=== PATIENT | male | born 1945 | race African-American/Black ===

== ENCOUNTER 2016-11-28 11:20 | Inpatient (IN) | payer OTHER ==
[2016-11-28] MEDS ORDERED: SODIUM CHLORIDE 1,000 ML IV ONE (12:52)
--- NOTE | 2016-11-28 12:52 | PDOC ---
History of Present Illness - General History Source: Patient, Family Exam Limitations: No Limitations - History of Present Illness Initial Comments: 11/28/16 16:02 The patient is a 71 year old female with a significant PMH of diabetes, hyperlipidemia, HTN, and prostate cancer who presents to the emergency department with difficulty eating after being sent over by Dr. Perez today. The patients family reports that the patient has had difficulty ingesting his food for over a month. The patient notes that when he eats, it feels as though the food gets stuck in the epigastric area. He acknowledges spitting up a white substance occasionally, but denies vomiting actual food. The family also notes that the patient has lost significant weight recently, possibly over 60 pounds within the last six months. The patients family reports that the patients PCP referred the patient to Dr. Perez, who first prescribed Fluconazole to cover for a fungal issue to no relief. On the second visit this morning, Dr. Perez conducted an endoscopy but could not advance the endoscope past an obstruction in the epigastric area. He referred the patient to the ED for further evaluation. Pt states he is able to tolerate fluids, but not solids. The patient denies chest pain, shortness of breath, headache and dizziness. Denies fever, chills, diarrhea and constipation. Denies dysuria, frequency, urgency and hematuria. Allergies: NKA Social history: No reported toxic habits. PCP: Dr. Deras GI: Dr. Perez Urologist: Dr. Isai Howard <Antwan Garvey - Last Filed: 11/28/16 16:01> <Gamaliel Toribio - Last Filed: 11/28/16 17:30> - General Chief Complaint: Pain Stated Complaint: PCP SENT FOR ADMIN/GI BLOCKAGE Time Seen by Provider: 11/28/16 12:48 Past History <Antwan Garvey - Last Filed: 11/28/16 16:01> - Past Medical History Diabetes: Yes HTN: Yes Hypercholesterolemia: Yes - Surgical History Abdominal Surgery: (endoscopy) - Suicide/Smoking/Psychosocial Hx Smoking History: Never smoked Information on smoking cessation initiated: No Hx Alcohol Use: No Drug/Substance Use Hx: No Substance Use Type: None <Gamaliel Toribio - Last Filed: 11/28/16 17:30> - Past Medical History Allergies/Adverse Reactions: Allergies Allergy/AdvReac Type Severity Reaction Status Date / Time No Known Allergies Allergy Verified 11/28/16 11:31 Review of Systems - Review of Systems Able to Perform ROS?: Yes Comments:: 11/28/16 16:02 Constitutional - Pt denies Fever, Chills, weakness, HEENT: denies vision changes, sore throat Respiratory: Denies cough, sob, hemoptysis Cardiac: denies chest pain, palpitations, light headedness, leg swelling Abd/GI: (+) spitting up. (+) Difficulty swallowing. Denies abd pain, blood per rectum, melena, diarrhea : denies dysuria, frequency, discharge Musculoskeletal - denies back pain, joint swelling skin - denies bruising, erythema, rash neurological: denies headache, numbness, focal weakness, tingling, ataxia, weakness hematologic: denies anemia, easy bruising, easy bleeding <Antwan Garvey - Last Filed: 11/28/16 16:01> *Physical Exam - Vital Signs Last Vital Signs Temp Pulse Resp BP Pulse Ox 97.5 F L 104 H 18 135/80 97 11/28/16 11:28 11/28/16 11:28 11/28/16 11:28 11/28/16 11:28 11/28/16 11:28 - Physical Exam Comments: 11/28/16 16:02 GENERAL: The patient is awake, alert, and fully oriented, Nontoxic - in no acute distress. cachectic appearing HEAD: Normocephalic, atraumatic. EYES: extraocular movements intact, sclera anicteric, conjunctiva clear. ENT: Normal voice, dry mucous membranes. NECK: Normal range of motion, supple LUNGS: Breath sounds equal, clear to auscultation bilaterally. No wheezes, no rhonchi, no rales. HEART: slightly tachcyardic, without murmur, rub or gallop. ABDOMEN: Soft, nontender, normoactive bowel sounds. No guarding, no rebound.No CVA tenderness EXTREMITIES: Normal range of motion, no edema. NEUROLOGICAL: No facial assymetry, Normal speech, moving all 4 extremities apontneously and symemtrically PSYCH: Normal mood, normal affect. SKIN: Warm, Dry, normal turgor, <Antwan Garvey - Last Filed: 11/28/16 16:01> - Vital Signs Last Vital Signs Temp Pulse Resp BP Pulse Ox 97.5 F L 104 H 18 135/80 97 11/28/16 11:28 11/28/16 11:28 11/28/16 11:28 11/28/16 11:28 11/28/16 11:28 <MaluGamaliel - Last Filed: 11/28/16 17:30> Heart Score/ECG Review - ECG Impressions Comment:: 11/28/16 16:18 Twelve-lead EKG was performed and reviewed by me. There is normal sinus rhythm with a normal rate. Rate of 92. LAFB abnormal r wave progression <MaluGamaliel - Last Filed: 11/28/16 17:30> ED Treatment Course - LABORATORY CBC & Chemistry Diagram: 11/28/16 12:59 11/28/16 12:59 - ADDITIONAL ORDERS Additional order review: Laboratory Results 11/28/16 11/28/16 11/28/16 12:59 12:59 12:59 PT with INR 11.20 INR 0.99 Sodium 140 Potassium 4.3 Chloride 102 Carbon Dioxide 33 H Anion Gap 5 L BUN 34 H Creatinine 1.2 Creat Clearance w eGFR 59.51 Random Glucose 90 Calcium 10.1 Total Bilirubin 0.7 AST 19 ALT 24 Alkaline Phosphatase 123 H Total Protein 8.3 H Albumin 3.7 Lipase 171 Blood Type O POSITIVE Antibody Screen Negative 11/28/16 12:59 RBC 3.74 L MCV 86.9 MCHC 34.3 RDW 16.0 H MPV 8.5 Neutrophils % 84.4 H Lymphocytes % 7.3 L Monocytes % 5.9 Eosinophils % 1.9 Basophils % 0.5 - Medications Given in the ED: ED Medications Discontinued Medications Generic Name Dose Route Start Last Admin Trade Name Freq PRN Reason Stop Dose Admin Sodium Chloride 1,000 mls @ 1,000 mls/hr 11/28/16 12:52 11/28/16 13:23 Normal Saline - IV 11/28/16 13:51 1,000 mls/hr .Q1H ONE Administration <Antwan Garvey - Last Filed: 11/28/16 16:01> - LABORATORY CBC & Chemistry Diagram: 11/28/16 12:59 11/28/16 12:59 <Gamaliel Toribio - Last Filed: 11/28/16 17:30> Medical Decision Making - Medical Decision Making 11/28/16 13:10 71y M hx of htn, hl, dm, sent by Dr Perez to the ED - the pt was being evaluated via endoscopy, and he saw a large food bolus and was uanble to pass through and see distally. On exam the pt is in no distress, but is chachectic appearing, and slightly tachy, pssible from dehdyration achalasia vs mass vs malignancy will ck labs will keep bed at 45 egrees will give fluisd anditicpate admission for further management due to concern for aspiration risk A portion of this note was documented by scribe services under my direction. I have reviewed the details of the note, within reason, and agree with the documentation with the following case summary and management plan written by me 11/28/16 16:11 labs reviewed noted for dehydation with elevated BUN will hydrate with fluids ashish admit pt for GI fu pt is NPO will notify dr. raman for admission 11/28/16 17:[address] raman agree with admission for further management stable for med surg Case discussed in detail with admitting physician including history, physical exam and ancillary studies. Admitting physician has assumed care for the patient, will follow all pending diagnostics and will complete the evaluation and treatment. 11/28/16 17:[address] perez [address] chest with IV contrast will reescope on after hopefully some food passess <Gamaliel Toribio - Last Filed: 11/28/16 17:30> *DC/Admit/Observation/Transfer - Attestations Scribe Attestion: 11/28/16 16:03 Documentation prepared by Antwan Garvey, acting as emergency medical services coordinator for Gamaliel Toribio MD. <Antwan Garvey - Last Filed: 11/28/16 16:01> - Discharge Dispostion Admit: Yes <Gamaliel Toribio - Last Filed: 11/28/16 17:30> Diagnosis at time of Disposition: Dehydration Dysphagia Qualifiers: Dysphagia type: unspecified Qualified Code(s): R13.10 - Dysphagia, unspecified - Discharge Dispostion Condition at time of disposition: Stable - Referrals Referrals: STAFF,NOT ON [Primary Care Provider] -
[2016-11-28 14:27] LABS: INR 0.99 (0.82-1.09); PROTHROMBIN TIME (PATIENT) 11.2 SEC (9.98-11.88)
[2016-11-28 15:08] LABS: BASOPHIL 0.5 % (0-2.0); EOSINOPHIL 1.9 % (0-4.5); MCH 29.8 pg (25.7-33.7); MCHC 34.3 g/dl (32.0-35.9); MEAN CELL VOLUME 86.9 fl (80-96); MEAN PLT VOLUME 8.5 fl (7.5-11.1); NEUTROPHILS 84.4 % (42.8-82.8); PLATELET COUNT 156 K/MM3 (134-434); WHITE BLOOD COUNT 6.1 K/mm3 (4.0-10.0)
[2016-11-28 15:32] LABS: ALBUMIN 3.7 g/dl (3.4-5.0); ALK PHOS 123 U/L (45-117); ANION GAP 5 (8-16); BILIRUBIN,TOTAL 0.7 mg/dL (0.2-1.0); CALCIUM 10.1 mg/dL (8.5-10.1); CO2 33 mmol/L (21-32); CREATININE 1.2 mg/dL (0.7-1.3); GLUCOSE,RANDOM 90 mg/dL (74-106); SGOT/AST 19 U/L (15-37); SGPT/ALT 24 U/L (12-78); TOT PROT 8.3 g/dl (6.4-8.2)
[2016-11-28] MEDS ORDERED: SODIUM CHLORIDE 1,000 ML IV SCH (17:30)
--- NOTE | 2016-11-28 18:41 | EKG ---
Test Reason : Blood Pressure : / mmHG Vent. Rate : 092 BPM Atrial Rate : 092 BPM P-R Int : 134 ms QRS Dur : 078 ms QT Int : 350 ms P-R-T Axes : 072 -76 076 degrees QTc Int : 432 ms SINUS RHYTHM WITH OCCASIONAL PREMATURE VENTRICULAR COMPLEXES LEFT ANTERIOR FASCICULAR BLOCK LEFT ATRIAL ENLARGEMENT CANNOT RULE OUT ANTEROSEPTAL INFARCT , AGE UNDETERMINED ABNORMAL ECG NO PREVIOUS ECGS AVAILABLE REPEAT EKG IF CLINICALLY INDICATED Confirmed by SHAMAR ROUSSEAU MD ([id number]) on 11/28/2016 6:41:34 PM Referred By: Confirmed By:SHAMAR ROUSSEAU MD
[2016-11-28] MEDS: D5-1/2NS+20 MEQ KCL - 1,000 ML IV SCH (21:15)
[2016-11-28] MEDS: HEPARIN NA (PORCINE) 5,000 UNITS/ML 1ML VIAL SQ SCH (22:18)
[2016-11-28] MEDS: PANTOPRAZOLE SODIUM 40 MG VIAL IVPUSH SCH (22:18)
[2016-11-29 03:39] VITALS: BMI 17.8
[2016-11-29 08:14] LABS: BASOPHIL 0.5 % (0-2.0); EOSINOPHIL 4.3 % (0-4.5); MCH 29.5 pg (25.7-33.7); MCHC 33.8 g/dl (32.0-35.9); MEAN CELL VOLUME 87.3 fl (80-96); MEAN PLT VOLUME 8.2 fl (7.5-11.1); NEUTROPHILS 73.7 % (42.8-82.8); PLATELET COUNT 152 K/MM3 (134-434); RDW 15.9 % (11.9-15.9); WHITE BLOOD COUNT 3.8 K/mm3 (4.0-10.0)
[2016-11-29 08:36] LABS: ALBUMIN 3.1 g/dl (3.4-5.0); ALK PHOS 94 U/L (45-117); ANION GAP 5 (8-16); BILIRUBIN,TOTAL 0.9 mg/dL (0.2-1.0); CO2 30 mmol/L (21-32); CREATININE 1.1 mg/dL (0.7-1.3); GLUCOSE,RANDOM 109 mg/dL (74-106); SGOT/AST 18 U/L (15-37); SGPT/ALT 21 U/L (12-78); TOT PROT 7.1 g/dl (6.4-8.2)
[2016-11-29] MEDS: HEPARIN NA (PORCINE) 5,000 UNITS/ML 1ML VIAL SQ SCH ×2 (11:44→22:15)
[2016-11-29] MEDS: PANTOPRAZOLE SODIUM 40 MG VIAL IVPUSH SCH ×2 (11:44→22:15)
[2016-11-29] MEDS: D5-1/2NS+20 MEQ KCL - 1,000 ML IV SCH ×2 (11:46→22:14)
--- NOTE | 2016-11-29 11:56 | EKG ---
Test Reason : Blood Pressure : / mmHG Vent. Rate : 075 BPM Atrial Rate : 075 BPM P-R Int : 132 ms QRS Dur : 086 ms QT Int : 376 ms P-R-T Axes : 073 -64 046 degrees QTc Int : 419 ms NORMAL SINUS RHYTHM LEFT ANTERIOR FASCICULAR BLOCK CANNOT RULE OUT ANTEROSEPTAL INFARCT (CITED ON OR BEFORE 28-NOV-2016) ABNORMAL ECG WHEN COMPARED WITH ECG OF 28-NOV-2016 13:33, PREMATURE VENTRICULAR COMPLEXES ARE NO LONGER PRESENT QUESTIONABLE CHANGE IN INITIAL FORCES OF SEPTAL LEADS Confirmed by JOVITA PUGH, BERE ([id number]) on 11/29/2016 11:56:01 AM Referred By: THANG MCCLURE Confirmed By:BERE HUSSEIN MD
--- NOTE | 2016-11-29 15:10 | HP ---
Admitting History and Physical - Primary Care Physician PCP: Mary Hart - Admission Chief Complaint: Dysphagia History of Present Illness: The patient is a 71 year old female with a significant PMH of diabetes, hyperlipidemia, HTN, and prostate cancer who presents to the emergency department with difficulty eating after being sent over by Dr. Perez today. The patients family reports that the patient has had difficulty ingesting his food for over a month. The patient notes that when he eats, it feels as though the food gets stuck in the epigastric area. He acknowledges spitting up a white substance occasionally, but denies vomiting actual food. The family also notes that the patient has lost significant weight recently, possibly over 60 pounds within the last six months. The patients family reports that the patients PCP referred the patient to Dr. Perez, who first prescribed Fluconazole to cover for a fungal issue to no relief. On the second visit this morning, Dr. Perez conducted an endoscopy but could not advance the endoscope past an obstruction in the epigastric area. He referred the patient to the ED for further evaluation. Pt states he is able to tolerate fluids, but not solids. The patient denies chest pain, shortness of breath, headache and dizziness. Denies fever, chills, diarrhea and constipation. Denies dysuria, frequency, urgency and hematuria. History Source: Patient, Family Member Limitations to Obtaining History: No Limitations - Past Medical History Cardiovascular: Yes: HTN, Hyperlipdemia Endocrine: Yes: Diabetes Mellitus - Smoking History Smoking history: Never smoked - Alcohol/Substance Use Hx Alcohol Use: No Home Medications - Allergies Allergies/Adverse Reactions: Allergies Allergy/AdvReac Type Severity Reaction Status Date / Time No Known Allergies Allergy Verified 11/28/16 11:31 - Home Medications Home Medications: Ambulatory Orders Amlodipine Besylate 10 mg PO DAILY 11/28/16 Aspirin [ASA -] 81 mg PO DAILY 11/28/16 Atorvastatin Ca [Lipitor] 40 mg PO HS 11/28/16 Enalapril Maleate [Vasotec] 20 mg PO DAILY 11/28/16 Metformin HCl 500 mg PO DAILY 11/28/16 Review of Systems - Review of Systems Constitutional: reports: Loss of Appetite, Unintentional Wgt. Loss (60 lbs in past 6 months), Weakness Eyes: reports: No Symptoms HENT: reports: No Symptoms Neck: reports: No Symptoms Cardiovascular: reports: No Symptoms Respiratory: reports: No Symptoms Gastrointestinal: reports: Dysphagia Genitourinary: reports: No Symptoms Breasts: reports: No Symptoms Reported Musculoskeletal: reports: No Symptoms Integumentary: reports: No Symptoms Neurological: reports: No Symptoms Endocrine: reports: No Symptoms Hematology/Lymphatic: reports: No Symptoms Psychiatric: reports: No Symptoms Physical Examination Vital Signs: Vital Signs Temperature 98.3 F 11/29/16 06:43 Pulse Rate 75 11/29/16 06:43 Respiratory Rate 20 11/29/16 09:00 Blood Pressure 105/58 11/29/16 06:43 O2 Sat by Pulse Oximetry (%) 98 11/29/16 09:00 Constitutional: Yes: Well Nourished, No Distress, Calm Cardiovascular: Yes: Regular Rate and Rhythm Respiratory: Yes: Regular Musculoskeletal: Yes: WNL Extremities: Yes: WNL Edema: No Peripheral Pulses WNL: Yes Labs: CBC, BMP 11/29/16 07:45 11/29/16 07:45 Problem List - Problems (1) Dysphagia Assessment/Plan: -to be seen by GI -repeat EGD in AM -IVF -ice chips okay until midnight -CT reviewed stricture versus achalasia Code(s): R13.10 - DYSPHAGIA, UNSPECIFIED Qualifiers: Dysphagia type: unspecified Qualified Code(s): R13.10 - Dysphagia, unspecified; R13.10 - Dysphagia, unspecified (2) Unintentional weight loss Assessment/Plan: 2/2 inability to swallow Code(s): R63.4 - ABNORMAL WEIGHT LOSS (3) Anemia Assessment/Plan: -check stool occult -iron studies -b12 and folate Code(s): D64.9 - ANEMIA, UNSPECIFIED Assessment/Plan see problem list
--- NOTE | 2016-11-29 15:16 | CON.CARD ---
Consult Consult Specialty:: Cardiology Referred by:: Hailey Reason for Consultation:: Abnormal EKG - History of Present Illness Chief Complaint: Dysphagia. Weight loss History of Present Illness: 71 year old male with a pmhx of dm, hld, htn, CVA, and prostate CA sent to ER from Dr. Perez after noted to have an obstruction in the epigastric area with an endoscope. Patient has been complaining of weight loss 60pounds along with sensation that food gets stuck. Denies any cardiac history. No chest pain, dyspnea, or palpitations. No pnd, orthopnea, or edema. Walks a few blocks with a cane and stops for fatigue. 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 Cardio/Vascular: Yes: HTN, Hyperlipdemia Endocrine: Yes: Diabetes Mellitus - Alcohol/Substance Use Hx Alcohol Use: No - Smoking History Smoking history: Former smoker Home Medications - Allergies Allergies/Adverse Reactions: Allergies Allergy/AdvReac Type Severity Reaction Status Date / Time No Known Allergies Allergy Verified 11/28/16 11:31 - Home Medications Home Medications: Ambulatory Orders Amlodipine Besylate 10 mg PO DAILY 11/28/16 Aspirin [ASA -] 81 mg PO DAILY 11/28/16 Atorvastatin Ca [Lipitor] 40 mg PO HS 11/28/16 Enalapril Maleate [Vasotec] 20 mg PO DAILY 11/28/16 Metformin HCl 500 mg PO DAILY 11/28/16 Vital Signs: Vital Signs Temperature 98.3 F 11/29/16 06:43 Pulse Rate 75 11/29/16 06:43 Respiratory Rate 20 11/29/16 09:00 Blood Pressure 105/58 11/29/16 06:43 O2 Sat by Pulse Oximetry (%) 98 11/29/16 09:00 Constitutional: Yes: Cachectic Neck: Yes: Supple Respiratory: Yes: CTA Bilaterally Gastrointestinal: Yes: Normal Bowel Sounds, Soft Cardiovascular: Yes: Regular Rate and Rhythm JVD: No Carotid Bruit: No PMI: Non-Displaced Heart Sounds: Yes: S1, S2 Murmur: No: Systolic Murmur Edema: No - Other Data Labs, Other Data: CBC, BMP 11/29/16 07:45 11/29/16 07:45 INR, PTT INR 0.99 (0.82-1.09) 11/28/16 12:59 Imaging - Results Chest X-ray: Report Reviewed Cat Scan: Report Reviewed EKG: Image Reviewed Assessment/Plan 71 year old male with a pmhx of dm, hld, htn, CVA, and prostate CA sent to ER from Dr. Perez after noted to have an obstruction in the epigastric area with an endoscope. Patient has been complaining of weight loss 60pounds along with sensation that food gets stuck. Denies any cardiac history. No chest pain, dyspnea, or palpitations. No pnd, orthopnea, or edema. Walks a few blocks with a cane and stops for fatigue. EKG: sinus rhythm with lafb and poor r wave progression cannot r/o anteroseptal infarct. CT chest with distention in the esophagous with air and fluid but no mass visualized. CXR: no acute pathology. 1) Abnormal EKG -patient with lafb and poor r wave progression. No cardiac symptoms or murmurs on exam Can have work up as an outpatient with echocardiogram and cardiology follow up. BP meds on hold given bp on low side with poor oral intake/dehydration/weight loss 2) Patient planned for EGD tomorrow. No cardiac contraindications to procedure. No chest pain. No signs of chf on exam or xray. No significant murmurs on exam.
--- NOTE | 2016-11-29 18:35 | CON.GI ---
Consult Consult Specialty:: GI Referred by:: Dr Hart Reason for Consultation:: Weight loss and dysphagia - History of Present Illness Chief Complaint: Patient seen in the office 2 days ago for EGD to evaluate poor po intake and weight loss. EGD done and patient noted to have food impaction with signtficantly dilated esphagus. I felt he was high-risk for aspiration and sent him to the ER for admission/IVF. 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 Cardio/Vascular: Yes: HTN, Hyperlipdemia Endocrine: Yes: Diabetes Mellitus - Alcohol/Substance Use Hx Alcohol Use: No - Smoking History Smoking history: Never smoked Home Medications - Allergies Allergies/Adverse Reactions: Allergies Allergy/AdvReac Type Severity Reaction Status Date / Time No Known Allergies Allergy Verified 11/28/16 11:31 - Home Medications Home Medications: Ambulatory Orders Amlodipine Besylate 10 mg PO DAILY 11/28/16 Aspirin [ASA -] 81 mg PO DAILY 11/28/16 Atorvastatin Ca [Lipitor] 40 mg PO HS 11/28/16 Enalapril Maleate [Vasotec] 20 mg PO DAILY 11/28/16 Metformin HCl 500 mg PO DAILY 11/28/16 Physical Exam-GI Vital Signs: Vital Signs Temperature 98.7 F 11/29/16 17:12 Pulse Rate 69 11/29/16 17:12 Respiratory Rate 20 11/29/16 17:12 Blood Pressure 121/53 11/29/16 17:12 O2 Sat by Pulse Oximetry (%) 98 11/29/16 09:00 Constitutional: Yes: Cachectic HENT: Yes: Normocephalic Neck: Yes: Supple Cardiovascular: Yes: Regular Rate and Rhythm Respiratory: Yes: CTA Bilaterally ...Auscultate: Yes: Normoactive Bowel Sounds ...Palpate: Yes: Soft. No: Tenderness Labs: CBC, BMP 11/29/16 07:45 11/29/16 07:45 INR, PTT INR 0.99 (0.82-1.09) 11/28/16 12:59 Imaging - Results Cat Scan: Report Reviewed (significantly dilated food filled esophagus with distal tapering) Assessment/Plan Likely achalasia Can't r/o ca EGD AM
[2016-11-30] MEDS ORDERED: BOTULINUM TOXIN A 100 UNITS VIAL IM ONE (07:38)
--- NOTE | 2016-11-30 08:49 | PN ---
Progress Note (short form) - Note Progress Note: ADDENDUM: S/P EGD Esophageal lumen markedly enlarged. Food seen previously noted now cleared and only secretions present. Once secretions were cleared, esophageal mucosa was normal-appearing with no evidence of neoplasia. GE junction biopsied and injected with 100 ug of botox. Start ensure 3 cans daily. May need repeat treatment for this obviously longstanding problem. Possible balloon dilation although risky in this fragile patient.
[2016-11-30] MEDS: PANTOPRAZOLE SODIUM 40 MG VIAL IVPUSH SCH ×2 (10:16→22:37)
[2016-11-30] MEDS: HEPARIN NA (PORCINE) 5,000 UNITS/ML 1ML VIAL SQ SCH ×2 (10:16→22:37)
[2016-11-30 10:33] LABS: BASOPHIL 0.5 % (0-2.0); EOSINOPHIL 7.3 % (0-4.5); MCH 29.3 pg (25.7-33.7); MCHC 33.1 g/dl (32.0-35.9); MEAN CELL VOLUME 88.4 fl (80-96); MEAN PLT VOLUME 8.3 fl (7.5-11.1); NEUTROPHILS 67.6 % (42.8-82.8); PLATELET COUNT 142 K/MM3 (134-434); RDW 16.2 % (11.9-15.9); WHITE BLOOD COUNT 2.9 K/mm3 (4.0-10.0)
--- NOTE | 2016-11-30 10:33 | PN ---
Progress Note, Physician Chief Complaint: Dysphagia History of Present Illness: NAD, awake in bed had EGD this AM, given botox by GI started on Ensure TID Advance diet as suggested by GI - Current Medication List Current Medications: Active Medications Heparin Sodium (Porcine) (Heparin -) 5,000 unit SQ BID [facility] Last Admin: 11/30/16 10:16 Dose: 5,000 unit Potassium Chloride/Dextrose/Sod Cl (D5-1/2ns+20 Meq Kcl -) 1,000 mls @ 83 mls/ hr IV ASDIR [facility] Last Admin: 11/29/16 22:14 Dose: 83 mls/hr Pantoprazole Sodium (Protonix Iv) 40 mg IVPUSH BID [facility] Last Admin: 11/30/16 10:16 Dose: 40 mg - Objective Vital Signs: Vital Signs Temperature 97.5 F L 11/30/16 08:09 Pulse Rate 94 H 11/30/16 08:50 Respiratory Rate 18 11/30/16 08:50 Blood Pressure 120/80 11/30/16 08:50 O2 Sat by Pulse Oximetry (%) 98 11/30/16 08:50 Constitutional: Yes: Well Nourished, No Distress, Calm Gastrointestinal: Yes: Normal Bowel Sounds Edema: No Peripheral Pulses WNL: Yes Neurological: Yes: Alert, Oriented Psychiatric: Yes: Alert, Oriented Labs: INR, PTT INR 0.99 (0.82-1.09) 11/28/16 12:59 Problem List - Problems (1) Dysphagia Assessment/Plan: -to be seen by GI -EGD done -received botox -IVF -Ensure TID -CT reviewed stricture versus achalasia Code(s): R13.10 - DYSPHAGIA, UNSPECIFIED Qualifiers: Dysphagia type: unspecified Qualified Code(s): R13.10 - Dysphagia, unspecified; R13.10 - Dysphagia, unspecified (2) Unintentional weight loss Assessment/Plan: 2/2 inability to swallow Code(s): R63.4 - ABNORMAL WEIGHT LOSS (3) Anemia Assessment/Plan: -check stool occult -iron studies pending -b12 and folate pending Code(s): D64.9 - ANEMIA, UNSPECIFIED Assessment/Plan see problem list
[2016-11-30 11:17] LABS: ALBUMIN 3.3 g/dl (3.4-5.0); ALK PHOS 94 U/L (45-117); ANION GAP 6 (8-16); BILIRUBIN,TOTAL 0.9 mg/dL (0.2-1.0); CALCIUM 9.2 mg/dL (8.5-10.1); CO2 28 mmol/L (21-32); CREATININE 1.1 mg/dL (0.7-1.3); FERRITIN 956.851 ng/ml (16.4-293.9); GLUCOSE,RANDOM 96 mg/dL (74-106); SGOT/AST 22 U/L (15-37); SGPT/ALT 21 U/L (12-78); TOT PROT 7.3 g/dl (6.4-8.2)
--- NOTE | 2016-11-30 15:12 | PN ---
Progress Note, Physician Chief Complaint: No complaints today S/p EGD this AM History of Present Illness: 71 year old male with a pmhx of dm, hld, htn, CVA, and prostate CA sent to ER from Dr. Perez after noted to have an obstruction in the epigastric area with an endoscope. Patient has been complaining of weight loss 60pounds along with sensation that food gets stuck. Denies any cardiac history. No chest pain, dyspnea, or palpitations. No pnd, orthopnea, or edema. Walks a few blocks with a cane and stops for fatigue. - Current Medication List Current Medications: Active Medications Heparin Sodium (Porcine) (Heparin -) 5,000 unit SQ BID [facility] Last Admin: 11/30/16 10:16 Dose: 5,000 unit Potassium Chloride/Dextrose/Sod Cl (D5-1/2ns+20 Meq Kcl -) 1,000 mls @ 83 mls/ hr IV ASDIR [facility] Last Admin: 11/29/16 22:14 Dose: 83 mls/hr Pantoprazole Sodium (Protonix Iv) 40 mg IVPUSH BID [facility] Last Admin: 11/30/16 10:16 Dose: 40 mg - Objective Vital Signs: Vital Signs Temperature 98.1 F 11/30/16 10:00 Pulse Rate 63 11/30/16 10:00 Respiratory Rate 16 11/30/16 10:00 Blood Pressure 137/64 11/30/16 10:00 O2 Sat by Pulse Oximetry (%) 98 11/30/16 09:00 Constitutional: Yes: No Distress, Cachectic Neck: Yes: Supple Cardiovascular: Yes: Regular Rate and Rhythm, S1, S2. No: Murmur Respiratory: Yes: CTA Bilaterally Gastrointestinal: Yes: Normal Bowel Sounds, Soft Edema: No Labs: CBC, BMP 11/30/16 10:00 11/30/16 10:00 INR, PTT INR 0.99 (0.82-1.09) 11/28/16 12:59 Assessment/Plan 71 year old male with a pmhx of dm, hld, htn, CVA, and prostate CA sent to ER from Dr. Perez after noted to have an obstruction in the epigastric area with an endoscope. Patient has been complaining of weight loss 60pounds along with sensation that food gets stuck. Denies any cardiac history. No chest pain, dyspnea, or palpitations. No pnd, orthopnea, or edema. Walks a few blocks with a cane and stops for fatigue. EKG: sinus rhythm with lafb and poor r wave progression cannot r/o anteroseptal infarct. CT chest with distention in the esophagous with air and fluid but no mass visualized. CXR: no acute pathology. 1) Abnormal EKG -patient with lafb and poor r wave progression. Echocardiogram with normal LV systolic function and mild MR/TR. No chest pain or sob. Would have patient follow up as outpatient with cardiology. Please call back with any further questions
[2016-11-30] MEDS ORDERED: ATORVASTATIN CA 40 MG TABLET (FP) PO SCH (22:00)
[2016-11-30] MEDS: D5-1/2NS+20 MEQ KCL - 1,000 ML IV SCH (22:35)
[2016-12-01] MEDS: D5-1/2NS+20 MEQ KCL - 1,000 ML IV SCH (03:33)
[2016-12-01 06:07] LABS: SERUM IRON 65 ug/dL (38-169); TOTAL IRON BINDING CAPACITY 250 ug/dL (250-450); UIBC 185 ug/dL (111-343)
[2016-12-01 08:43] LABS: BASOPHIL 0.4 % (0-2.0); EOSINOPHIL 9.7 % (0-4.5); MCH 30.3 pg (25.7-33.7); MCHC 34.5 g/dl (32.0-35.9); MEAN CELL VOLUME 87.9 fl (80-96); MEAN PLT VOLUME 8.5 fl (7.5-11.1); NEUTROPHILS 59.6 % (42.8-82.8); PLATELET COUNT 150 K/MM3 (134-434); RDW 15.5 % (11.9-15.9); WHITE BLOOD COUNT 2.5 K/mm3 (4.0-10.0)
[2016-12-01 09:26] LABS: ALBUMIN 2.9 g/dl (3.4-5.0); ALK PHOS 101 U/L (45-117); ANION GAP 8 (8-16); BILIRUBIN,TOTAL 0.4 mg/dL (0.2-1.0); CO2 26 mmol/L (21-32); CREATININE 1.2 mg/dL (0.7-1.3); GLUCOSE,RANDOM 86 mg/dL (74-106); SGOT/AST 21 U/L (15-37); SGPT/ALT 21 U/L (12-78); TOT PROT 6.6 g/dl (6.4-8.2)
[2016-12-01] MEDS ORDERED: PATIENT'S OWN MEDICATION (NON-FORMULARY) (Enalapril Maleate [Vasotec] 20 MG) PO SCH (10:00)
[2016-12-01] MEDS ORDERED: ENALAPRIL MALEATE 10 MG TABLET (FP) PO SCH (10:00)
[2016-12-01] MEDS ORDERED: amLODIPine BESYLATE 10 MG TABLET (FP) PO SCH (10:00)
[2016-12-01] MEDS ORDERED: ASPIRIN 81 MG CHEWABLE TABLETS PO SCH (10:00)
--- NOTE | 2016-12-01 10:08 | PN ---
Progress Note, Physician Chief Complaint: Dysphagia History of Present Illness: NAD, awake in bed had EGD this AM, given botox by GI tolerating ensure would need multiple botox treatments to relieve achalasia seen by industrial registered nurse - Current Medication List Current Medications: Active Medications Amlodipine Besylate (Norvasc -) 10 mg PO DAILY [facility] Aspirin (Asa -) 81 mg PO DAILY [facility] Atorvastatin Calcium (Lipitor -) 40 mg PO HS [facility] Last Admin: 11/30/16 22:37 Dose: 40 mg Enalapril Maleate (Vasotec -) 20 mg PO DAILY [facility] Heparin Sodium (Porcine) (Heparin -) 5,000 unit SQ BID [facility] Last Admin: 11/30/16 22:37 Dose: 5,000 unit Potassium Chloride/Dextrose/Sod Cl (D5-1/2ns+20 Meq Kcl -) 1,000 mls @ 83 mls/ hr IV ASDIR [facility] Last Admin: 12/01/16 03:33 Dose: 83 mls/hr Pantoprazole Sodium (Protonix Iv) 40 mg IVPUSH BID [facility] Last Admin: 11/30/16 22:37 Dose: 40 mg - Objective Vital Signs: Vital Signs Temperature 98.7 F 11/30/16 20:00 Pulse Rate 71 11/30/16 20:00 Respiratory Rate 20 11/30/16 20:00 Blood Pressure 103/52 11/30/16 20:00 O2 Sat by Pulse Oximetry (%) 98 11/30/16 21:00 Constitutional: Yes: Well Nourished, No Distress, Calm Cardiovascular: Yes: Regular Rate and Rhythm Respiratory: Yes: Regular Breast(s): Yes: WNL Musculoskeletal: Yes: WNL Edema: No Peripheral Pulses WNL: Yes Neurological: Yes: Alert, Oriented Psychiatric: Yes: Alert, Oriented Labs: CBC, BMP 12/01/16 08:21 12/01/16 08:21 INR, PTT INR 0.99 (0.82-1.09) 11/28/16 12:59 Problem List - Problems (1) Dysphagia Assessment/Plan: -to be seen by GI -EGD done -received botox -Ensure TID -CT reviewed stricture versus achalasia Code(s): R13.10 - DYSPHAGIA, UNSPECIFIED Qualifiers: Dysphagia type: unspecified Qualified Code(s): R13.10 - Dysphagia, unspecified; R13.10 - Dysphagia, unspecified (2) Unintentional weight loss Assessment/Plan: 2/2 inability to swallow Code(s): R63.4 - ABNORMAL WEIGHT LOSS (3) Anemia Assessment/Plan: -check stool occult -iron studies normal -b12 and folate unremarkable Code(s): D64.9 - ANEMIA, UNSPECIFIED (4) Leukocytopenia Code(s): D72.819 - DECREASED WHITE BLOOD CELL COUNT, UNSPECIFIED Assessment/Plan see problem list OK to go home and f/u with GI and hematology outpatient
[2016-12-01] MEDS: PANTOPRAZOLE SODIUM 40 MG VIAL IVPUSH SCH (10:36)
[2016-12-01] MEDS: HEPARIN NA (PORCINE) 5,000 UNITS/ML 1ML VIAL SQ SCH (10:36)
[2016-12-01 11:00] LABS: CALCIUM 9.2 mg/dL (8.5-10.1)
[2016-12-01 11:50] VITALS: BP 109/79; PULSE 75; TEMP 98.1
--- NOTE | 2016-12-01 14:36 | CONSULT ---
Consult - text type - Consultation Consultation Note: 71 year old male with a pmhx of dm, hld, htn, CVA, and prostate CA sent to ER from Dr. Perez after noted to have an obstruction in the epigastric area on endoscopy. Patient has been complaining of weight loss 60pounds along with sensation that food gets stuck. Denies any cardiac history. No chest pain, dyspnea, or palpitations. No pnd, orthopnea, or edema. Walks a few blocks with a cane and stops for fatigue. 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 Cardio/Vascular: Yes: HTN, Hyperlipdemia Endocrine: Yes: Diabetes Mellitus - Alcohol/Substance Use Hx Alcohol Use: No - Smoking History Smoking history: Former smoker Home Medications - Allergies Allergies/Adverse Reactions: Allergies Allergy/AdvReac Type Severity Reaction Status Date / Time No Known Allergies Allergy Verified 11/28/16 11:31 - Home Medications Home Medications: Ambulatory Orders Amlodipine Besylate 10 mg PO DAILY 11/28/16 Aspirin [ASA -] 81 mg PO DAILY 11/28/16 Atorvastatin Ca [Lipitor] 40 mg PO HS 11/28/16 Enalapril Maleate [Vasotec] 20 mg PO DAILY 11/28/16 Metformin HCl 500 mg PO DAILY 11/28/16 Vital Signs: Last Vital Signs Temp Pulse Resp BP Pulse Ox 98.1 F 75 16 109/79 98 12/01/16 08:00 12/01/16 08:00 12/01/16 09:00 12/01/16 08:00 12/01/16 09:00 Constitutional: Yes: Cachectic Neck: Yes: Supple Respiratory: Yes: CTA Bilaterally Gastrointestinal: Yes: Normal Bowel Sounds, Soft Cardiovascular: Yes: Regular Rate and Rhythm PMI: Non-Displaced Heart Sounds: Yes: S1, S2 - Other Data Abnormal Lab Results 12/01/16 12/01/16 08:21 08:21 WBC 2.5 L RBC 3.12 L Hgb 9.5 L Hct 27.4 L Eosinophils % 9.7 H Albumin 2.9 L Home Medication List Medication Instructions Recorded Confirmed Type Amlodipine Besylate 10 mg PO DAILY 11/28/16 11/28/16 History Aspirin [ASA -] 81 mg PO DAILY 11/28/16 11/28/16 History Atorvastatin Ca [Lipitor] 40 mg PO HS 11/28/16 11/28/16 History Enalapril Maleate [Vasotec] 20 mg PO DAILY 11/28/16 11/28/16 History Active Medications Generic Name Dose Route Start Last Admin Trade Name Celi PRN Reason Stop Dose Admin Amlodipine Besylate 10 mg 12/01/16 10:00 12/01/16 10:36 Norvasc - PO 10 mg DAILY [facility] Administration Aspirin 81 mg 12/01/16 10:00 12/01/16 10:36 Asa - PO 81 mg DAILY [facility] Administration Atorvastatin Calcium 40 mg 11/30/16 22:00 11/30/16 22:37 Lipitor - PO 40 mg HS [facility]IL[facility] Administration Enalapril Maleate 20 mg 12/01/16 10:00 12/01/16 10:36 Vasotec - PO 20 mg DAILY [facility] Administration Heparin Sodium (Porcine) 5,000 unit 11/28/16 22:00 12/01/16 10:36 Heparin - SQ 5,000 unit BID [facility] Administration Potassium Chloride/Dextrose/Sod Cl 1,000 mls @ 83 mls/hr 11/28/16 18:15 03:33 D5-1/2ns+20 Meq Kcl - IV 83 mls/hr ASDIR [facility] Administration Pantoprazole Sodium 40 mg 11/28/16 22:00 12/01/16 10:36 Protonix Iv IVPUSH 40 mg BID [facility] Administration Assessment/Plan 71 year old male with a pmhx of dm, hld, htn, CVA, and prostate CA sent to ER from Dr. Perez after noted to have an obstruction in the esophagus on endoscopy. Patient has been complaining of weight loss 60pounds along with sensation that food gets stuck. CT chest achalasia. Repeat EGD showed no mucosal abnormality. GE jxn bx pending. No obvious malignancy we have been consulted for lukopenia Patient denies any signs/symptoms of infection--no resp./gi/gu sx. no fever/ chills. No pain B12/folate/iron studies nl NEeds to f/u for further w/u---gave him contact info. and phone no. and the importance of need to f/u Prostate cancer /wt. loss--needs bone scan, PSA level. Reports having had RT with TAMARA Garcia Will need to f/u regarding further w/u
--- NOTE | 2016-12-01 15:56 | PATH ---
Surgical Pathology Report Patient Name: LYNETTE SALINAS Med. Rec. #: [id number] /Age/Gender: 1945 (Age: 71) / M Account: [id number] Location: [facility] MED/SURG Taken: 11/30/2016 Received: 11/30/2016 Reported: 12/01/2016 Physicians: Laith Wilkins M.D. Specimen(s) Received BX GE JUNCTION Clinical History Achalasia Final Diagnosis GASTROESOPHAGEAL (GE) JUNCTION, BIOPSY: SQUAMOCOLUMNAR MUCOSA WITH ACUTE AND CHRONIC INFLAMMATION AND CHANGES OF MODERATE REFLUX ESOPHAGITIS. NO INTESTINAL METAPLASIA OR DYSPLASIA IDENTIFIED. Electronically Signed Gabi Rodriguez M.D. Gross Description Received in formalin, labeled "biopsy GE junction" are 2 rudolph, irregular portions of soft tissue measuring 0.4 and 0.5 cm. in greatest dimension. The specimens are submitted in toto in one cassette. 11/30/201611/30/2016
== END 2016-12-01 16:32 | disposition home or self-care (01) | DRG 391 ==
LOC: JER 11:20 → JERBED 17:18 → J8W 20:39
PROVIDERS: ADMIT Family Medicine; ATTEND Family Medicine
PROC: 0DD68ZX Extraction of Stomach, Via Natural or Artificial Opening Endoscopic, Diagnostic (ICD-10-PCS; 2016-11-30)
PROC: 3E0G8GC Introduction of Other Therapeutic Substance into Upper GI, Via Natural or Artificial Opening Endoscopic (ICD-10-PCS; principal; 2016-11-30 07:30)
DX: K22.0 Achalasia of cardia (principal); E43 Unspecified severe protein-calorie malnutrition; R64 Cachexia; Z68.1 Body mass index [BMI] 19.9 or less, adult; R13.19 Other dysphagia; C61 Malignant neoplasm of prostate; E11.9 Type 2 diabetes mellitus without complications; I10 Essential (primary) hypertension; I44.4 Left anterior fascicular block; E78.5 Hyperlipidemia, unspecified; E86.0 Dehydration; Z79.84 Long term (current) use of oral hypoglycemic drugs; D64.9 Anemia, unspecified; D72.819 Decreased white blood cell count, unspecified
CPT/HCPCS: 36415; 71010-TC; 71260-TC; 80053; 82607; 82728; 82746; 83036; 83540; 83550; 83690; 85025; 85610; 86850; 86900; 86901; 88305-TC; 93005; 93010; 93306-TC; 97116-GP; 99284-25; J1644

== ENCOUNTER 2017-05-31 06:26 | Day surgery (SDC) | payer OTHER ==
[2017-05-31 07:54] VITALS: BMI 23.9
[2017-05-31] MEDS ORDERED: BOTULINUM TOXIN A 100 UNITS VIAL IM ONE (08:30)
[2017-05-31] MEDS ORDERED: PROPOFOL 20 ML ONE ×5 (08:35)
[2017-05-31] MEDS ORDERED: SUCCINYLCHOLINE CHLORIDE 200 MG/10 ML VIAL ONE (08:36)
[2017-05-31] MEDS ORDERED: LIDOCAINE HCL/PF 2% SDV 5ML VIAL ONE (08:36)
[2017-05-31] MEDS ORDERED: BOTULINUM TOXIN A 100 UNITS VIAL NR ONE ×2 (08:45→11:15)
[2017-05-31 09:01] VITALS: TEMP 97.7
[2017-05-31 10:15] VITALS: BP 142/82; PULSE 72
== END 2017-05-31 10:15 | disposition home or self-care (01) ==
LOC: JASU-ENDO 06:26
PROVIDERS: ATTEND Internal Medicine Gastroenterology
PROC: 3E0G8GC Introduction of Other Therapeutic Substance into Upper GI, Via Natural or Artificial Opening Endoscopic (ICD-10-PCS; principal; 2017-05-31 08:00)
DX: K22.0 Achalasia of cardia (principal); R13.19 Other dysphagia
CPT/HCPCS: J0585

== ENCOUNTER 2018-05-31 07:30 | Day surgery (SDC) | payer OTHER ==
[2018-05-31 13:18] LABS: BASO % 0.2 % (0-2.0); HEMATOCRIT 26.9 % (35.4-49); HEMOGLOBIN 9.1 GM/dL (11.7-16.9); LYMPH % 3.4 % (8-40); MCH 29.7 pg (25.7-33.7); MCHC 33.7 g/dl (32.0-35.9); MEAN CELL VOLUME 88.1 fl (80-96); MEAN PLT VOLUME 9.3 fl (7.5-11.1); NEUT % 88.4 % (42.8-82.8); PLATELET COUNT 289 K/MM3 (134-434); RBC 3.05 M/mm3 (4.00-5.60); RDW 17.7 % (11.9-15.9); WHITE BLOOD COUNT 10.6 K/mm3 (4.0-10.0)
--- NOTE | 2018-05-31 19:09 | HP ---
Satellite [facility] - Chief Complaint Chief Complaint: here for elective blood transfusion. c/o fatigue, weakness. 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 Cardiovascular: Yes: HTN, Hyperlipdemia Endocrine: Yes: Diabetes Mellitus - Current Medications Current Medications: Home Medications Medication Instructions Recorded Amlodipine Besylate 10 mg PO DAILY 11/28/16 Aspirin [ASA -] 81 mg PO DAILY 11/28/16 Atorvastatin Ca [Lipitor] 40 mg PO HS 11/28/16 Enalapril Maleate [Vasotec] 20 mg PO DAILY 11/28/16 Bicalutamide 50 mg PO DAILY 05/31/17 Satellite Physical Exam - Physical Examination Vital Signs: Vital Signs Period Temp Pulse Resp BP Sys/Bermudez Pulse Ox Last 24 Hr 98.2 F-98.2 F 116-116 18-18 107-107/63-63 General Appearance: Alert & Oriented x3 Lung: Clear to auscultation, Normal air movement Heart: Regular rate & rhythm, Normal S1, Normal S2 Abdomen: Soft, No tenderness Extremities: No edema Neurological: Intact Satellite Impression/Plan - Impression/Plan Impression: 73 y/o patient metastatic prostate cancer, s/p several lines of therapy. switching to olaparib. Transfuse 1 unit PRBCs for symptomatic anemia
[2018-05-31 19:26] VITALS: BP 123/60; PULSE 97; TEMP 98.7
== END 2018-05-31 19:26 | disposition home or self-care (01) ==
LOC: JONCBLOOD 07:30 → J7W 10:51 → JONCBLOOD 19:26
PROVIDERS: ATTEND Internal Medicine Hematology & Oncology
PROC: 30233N1 Transfusion of Nonautologous Red Blood Cells into Peripheral Vein, Percutaneous Approach (ICD-10-PCS; principal; 2018-05-31)
DX: D64.9 Anemia, unspecified (principal); C61 Malignant neoplasm of prostate; I10 Essential (primary) hypertension; E11.9 Type 2 diabetes mellitus without complications
CPT/HCPCS: 36415; 36430; 36511; 85025; 86850; 86900; 86901; 86922; P9038; P9058

== ENCOUNTER 2018-06-09 00:13 | Inpatient (IN) | payer OTHER ==
--- NOTE | 2018-06-09 00:58 | PDOC ---
History of Present Illness - General Chief Complaint: Syncope/Near Syncope Time Seen by Provider: 06/09/18 00:57 History Source: Patient - History of Present Illness Initial Comments: 06/09/18 01:08 The patient is a 73 year old male with a PMH of NIDDM, Prostate CA (currently undergoing radiation), CVA (residual R sided weakness) was BIBA following 15 minute period of unresponsiveness. Friend @ bedside provides history. States she walked into a room and saw patient sitting in bed with his eyes open not responding to his name. Notes a few minutes of associated shaking. Patient returned to baseline by the time EMS arrived following a few minutes of confusion. No noted bladder or bowel incontinence during the episode. Currently undergoing chemotherapy (patient of Dr. Gross), s/p blood transfusion last week. Family @ bedside note patient has been complaining of weakness since the transfusion and family found him lying on the ground a few days after the transfusion c/o weakness. No witnessed seizure or syncope at that time. The patient denies chest pain, shortness of breath. The patient denies abdominal pain, nausea/vomiting, diarrhea/constipation. The patient denies numbness/tingling. NKDA Surgical: none reported Social: remote h/o smoking, remote h/o alcohol abuse, denies other toxic habits PMD: [facility]. Da [facility] ([facility]) As per EMR, patient s/p 1 unit PRBC on 05/24/2018 for symptomatic anemia (Hb 9.1 ) Past History - Past Medical History Allergies/Adverse Reactions: Allergies Allergy/AdvReac Type Severity Reaction Status Date / Time No Known Allergies Allergy Verified 11/28/16 11:31 Home Medications: Ambulatory Orders Amlodipine Besylate 10 mg PO DAILY 11/28/16 Aspirin [ASA -] 81 mg PO DAILY 11/28/16 Atorvastatin Ca [Lipitor] 40 mg PO HS 11/28/16 Bicalutamide 50 mg PO DAILY 05/31/17 Albuterol 0.083% Nebulizer Fanny [Ventolin 0.083% Nebulizer Soln -] 1 neb NEB Q6H PRN 06/09/18 Docusate Sodium [Colace] 100 mg PO DAILY 06/09/18 Dronabinol 2.5 mg PO DAILY 06/09/18 Enzalutamide [Xtandi] 160 mg PO DAILY 06/09/18 Folic Acid 1 mg PO DAILY 06/09/18 Mirtazapine [Remeron -] 15 mg PO DAILY 06/09/18 Vitamin B Complex 1 each PO DAILY 06/09/18 Anemia: No Asthma: No Cancer: No Cardiac Disorders: No CVA: Yes (RIGHT SIDED WEAKNESS) COPD: No CHF: No Dementia: No Diabetes: No GI Disorders: No Disorders: No HTN: Yes Hypercholesterolemia: Yes Liver Disease: No Seizures: No Thyroid Disease: No - Surgical History Abdominal Surgery: Yes (endoscopy) - Suicide/Smoking/Psychosocial Hx Smoking History: Unknown if ever smoked Have you smoked in the past 12 months: No If you are a former smoker, when did you quit?: 2008 Hx Alcohol Use: No Drug/Substance Use Hx: No Substance Use Type: None Hx Substance Use Treatment: No Review of Systems - Review of Systems Constitutional: No: Chills, Fever HEENTM: No: Blurred Vision, Recent change in vision Respiratory: No: Cough, Shortness of Breath Cardiac (ROS): No: Chest Pain, Lightheadedness, Palpitations ABD/GI: No: Constipated, Diarrhea, Nausea, Vomiting *Physical Exam - Vital Signs Last Vital Signs Temp Pulse Resp BP Pulse Ox 97.2 F L 93 H 19 123/88 97 06/09/18 00:15 06/09/18 00:15 06/09/18 00:15 06/09/18 00:15 06/09/18 00:15 - Physical Exam General Appearance: Yes: Appropriately Dressed, Cachetic HEENT: positive: Normal Voice, Hearing Grossly Normal Neck: positive: Trachea midline, Supple Respiratory/Chest: positive: Lungs Clear, Normal Breath Sounds Cardiovascular: positive: S1, S2. negative: Edema, JVD, Murmur Gastrointestinal/Abdominal: positive: Normal Bowel Sounds, Soft Extremity: positive: Normal Capillary Refill, Normal Inspection Integumentary: positive: Normal Color, Dry, Warm Neurologic: positive: Fully Oriented, Alert, Other (RLE weakness (baseline deficit s/p stroke)) Heart Score/ECG Review - ECG Impressions Comment:: 06/09/18 03:03 HR 93, SVC, with LAD, poor R wave progression no BUCKY/STD/TWI - c/w previous EKG dated 2017 ED Treatment Course - LABORATORY CBC & Chemistry Diagram: 06/09/18 01:17 06/09/18 01:17 Medical Decision Making - Medical Decision Making 06/09/18 01:04 73 year old male s/p 15 minute period of unresponsiveness. Frontal diagnosis: r/ o CVA vs. seizure vs. syncope vs. brain mets vs. infection. PLAN: 1. Head CT 2. Labs, EKG 3. UA Reassess 06/09/18 02:[address] negative for acute infarct EKG non-ischemic as documented in EKG section of EMR (normal intervals, no delta wave; no coved ST elevation) Troponin (-) x1 Other hematologic derangements c/w malignancy; Hb stable @ 9.1 06/09/18 02:51 Patient reassessed @ bedside. Remains ASx. Provisional diagnosis of seizure vs. syncope + h/o increasing weakness and falls Will admit for OBS Tele Hospitalist microblogged for admission 06/09/18 03:03 Patient signed out to Dr. Denney (Attending) Clinical Impression Seizure vs. Syncope *DC/Admit/Observation/Transfer Diagnosis at time of Disposition: Syncope - Discharge Dispostion Condition at time of disposition: Fair Decision to Admit order: Yes - Referrals - Patient Instructions - Post Discharge Activity
[2018-06-09 01:27] LABS: BASO % 0.4 % (0-2.0); EOS % 0.1 % (0-4.5); HEMATOCRIT 26.9 % (35.4-49); HEMOGLOBIN 9.1 GM/dL (11.7-16.9); LYMPH % 2.7 % (8-40); MCH 29.4 pg (25.7-33.7); MCHC 33.7 g/dl (32.0-35.9); MEAN CELL VOLUME 87.1 fl (80-96); MEAN PLT VOLUME 7.8 fl (7.5-11.1); MONO % 4.6 % (3.8-10.2); NEUT % 92.2 % (42.8-82.8); PLATELET COUNT 265 K/MM3 (134-434); RBC 3.08 M/mm3 (4.00-5.60)
--- NOTE | 2018-06-09 01:54 | PDOC ---
Documentation entered by Alana Lowery SCRIBE, acting as scribe for Meena Brady MD. Meena Brady MD: This documentation has been prepared by the chenchoibeSebastián Lincy, SCRIBE, under my direction and personally reviewed by me in its entirety. I confirm that the documentation accurately reflects all work, treatment, procedures, and medical decision making performed by me. Attending Attestation - Resident Resident Name: Nena Aguirre - ED Attending Attestation I have performed the following: I have examined & evaluated the patient, The case was reviewed & discussed with the resident, I agree w/resident's findings & plan, Exceptions are as noted - HPI HPI: 06/09/18 01:30 The patient is a 73-year-old male with a past medical history significant for NIDDM, HTN, CVA with right-sided residual and Prostate CA (currently on chemo) presents to the emergency department via EMS with AMS. Per girlfriend at the bedside who witnessed the incident, the patient was on the bed when he started to have an episode of shaking, followed by unresponsiveness with eyes open staring off into the distance. Following the incident, the patient was confused ; for some time, at the ER the patient is noted to be at baseline. Denies bowel or urinary incontinence, fever, chills, chest pain or shortness of breath. The patient was seen at the ER about a week ago for blood transfusion, and since then hes been having a progressive weakness. Allergies: NKDA. - Physicial Exam PE: 06/09/18 01:52 awake alert pt cachectic , lungs clear bilaterally heart rrr no mrg abd soft nt nd ext wwp. nuero alert oriented. right upper ext 4+/ 5 . left 5/5. right lower 4/5, left 5/5. speech clear . skin warm and dry no edema. no calf tendernes.s cachectic. - Medical Decision Making 06/09/18 01:53 73 yo male with brief episode of ams, differential seizure, vs. syncope vs infection, recurrent anemia, plan ct head labs ekg cxr. reassess. pt will likely require admission r/o dysthymia. <Meena Brady - Last Filed: 06/09/18 01:52> - Medical Decision Making 06/09/18 02:32 Patient Name: LYNETTE SALINAS THIS IS A PRELIMINARY REPORT FROM IMAGING ORTHOPHOTOGRAPHY TECHNICIAN DATE OF SERVICE: 2018-06-09 01:33:38 IMAGES: 133 EXAM: CT HEAD WITHOUT INTRAVENOUS CONTRAST. HISTORY: CVA COMPARISON: None. FINDINGS: 1. There is mild diffuse cerebral and cerebellar volume loss and chronic infarct of the left cerebellum seen. 2. There is no intracranial bleed, extra-axial fluid collection, mass effect, midline shift, hydrocephalus or acute territorial infarct. <Bushra Briones - Last Filed: 06/09/18 02:32>
[2018-06-09 02:07] LABS: ALK PHOS 200 U/L (45-117); ANION GAP 8 MMOL/L (8-16); BILIRUBIN,TOTAL 1.2 mg/dL (0.2-1); BLOOD UREA NITROGEN 23 mg/dL (7-18); CALCIUM 9.1 mg/dL (8.5-10.1); CHLORIDE 103 mmol/L (98-107); CO2 26 mmol/L (21-32); CREATININE 0.9 mg/dL (0.55-1.3); GLUCOSE,RANDOM 129 mg/dL (74-106); POTASSIUM 3.4 mmol/L (3.5-5.1); SGOT/AST 64 U/L (15-37); SGPT/ALT 21 U/L (13-61); SODIUM 137 mmol/L (136-145); TOT PROT 6.3 g/dl (6.4-8.2)
[2018-06-09] MEDS ORDERED: FOLIC ACID INJECTION - 1 MG, THIAMINE HCL 100 MG, MULTIVIT INJECTION ADULT 10 ML in SOD... IVPB ONE (02:31)
[2018-06-09 03:41] LABS: EPI CELLS 1.3 /HPF (0-5/HPF); PH,URINE 5.5 (5.0-8.0); URINE APPEARANCE CLEAR; URINE BACTERIA 33.2 /hpf (NEGATIVE); URINE BILIRUBIN 1+ (NEGATIVE); URINE CASTS 1 /lpf (0-8); URINE COLOR DK YELLOW; URINE GLUCOSE (UA) NEGATIVE (NEGATIVE); URINE KETONE NEGATIVE (NEGATIVE); URINE LEUK ESTERASE 1+ (NEGATIVE); URINE NITRITE NEGATIVE (NEGATIVE); URINE PROTEIN TRACE (NEGATIVE); URINE RBC 1 /hpf (0-4); URINE WBC 7 /hpf (0-5)
--- NOTE | 2018-06-09 04:24 | HP ---
CHIEF COMPLAINT: Weakness PCP: Dr. Dickson ONCOLOGIST: Dr. Daniels HISTORY OF PRESENT ILLNESS: 73 y/o M with PMHx of NIDDM, HLD, HTN, Prostate Ca (Received ChemoRT), Prior CVA who presents to the ED after having an episode of unresponsiveness. Patient had difficulty in recolection of events, thus his son, sister and girlfriend at bedside aided in providing the majority of the history. Earlier this morning, the patients girlfriend found him sitting with his eyes open but unable to respond to his name. Shortly after she noted shaking in multiple extremities at which point EMS was phoned. Patient continued to have confusion after the incident. Family reports that last week patient was found on the floor of his apartment, unclear how long he was on the floor and if the patient hit his head. During my interview, patient could not recall either of these events. Girlfriend denies any loss of bowel/bladder control or biting of tongue with today's episode. Of note, patient did receive a pRBC transfusion last week. ER course was notable for: (1) (2) (3) Recent Travel: Denies PAST MEDICAL HISTORY: As above PAST SURGICAL HISTORY: Denies Social History: Smoking: Denies Alcohol: Denies Drugs: Denies Family History: Allergies No Known Allergies Allergy (Verified 11/28/16 11:31) HOME MEDICATIONS: Home Medications Medication Instructions Recorded Amlodipine Besylate 10 mg PO DAILY 11/28/16 Aspirin [ASA -] 81 mg PO DAILY 11/28/16 Atorvastatin Ca [Lipitor] 40 mg PO HS 11/28/16 Bicalutamide 50 mg PO DAILY 05/31/17 Albuterol 0.083% Nebulizer Fanny 1 neb NEB Q6H PRN 06/09/18 [Ventolin 0.083% Nebulizer Soln -] Docusate Sodium [Colace] 100 mg PO DAILY 06/09/18 Dronabinol 2.5 mg PO DAILY 06/09/18 Enzalutamide [Xtandi] 160 mg PO DAILY 06/09/18 Folic Acid 1 mg PO DAILY 06/09/18 Mirtazapine [Remeron -] 15 mg PO DAILY 06/09/18 Vitamin B Complex 1 each PO DAILY 06/09/18 REVIEW OF SYSTEMS Unable to obtain PHYSICAL EXAMINATION Vital Signs - 24 hr 06/09/18 00:15 Temperature 97.2 F L Pulse Rate 93 H Respiratory 19 Rate Blood Pressure 123/88 O2 Sat by Pulse 97 Oximetry (%) GENERAL: Awake, alert, NAD HEAD: NCAT EYES: PERRL, EOMI EARS, NOSE, THROAT: Moist mucous membranes. NECK: Supple LUNGS: Clear to auscultation bilaterally. No wheezes, and no crackles. HEART: Regular rate and rhythm, normal S1 and S2 without murmur ABDOMEN: Soft, nontender, not distended, + bowel sounds, no guarding, no rebound EXTREMITIES: No peripheral edema NEUROLOGICAL: Cranial nerves II-XII intact. Slow speech with some difficulty in recall, Gross sensation intact, Weakness noted throughout SKIN: Warm, dry Laboratory Results - last 24 hr 06/09/18 06/09/18 06/09/18 01:17 01:17 01:57 WBC 9.0 RBC 3.08 L Hgb 9.1 L Hct 26.9 L MCV 87.1 MCH 29.4 MCHC 33.7 RDW 17.0 H Plt Count 265 MPV 7.8 D Absolute Neuts (auto) 8.3 H Total Counted 100 Neutrophils % 92.2 H Neutrophils % (Manual) 84.0 H Band Neutrophils % 4.0 Lymphocytes % 2.7 L D Lymphocytes % (Manual) 7.0 L Monocytes % 4.6 Monocytes % (Manual) 5 Eosinophils % 0.1 D Basophils % 0.4 Nucleated RBC % 0 Hypochromia 1+ Sodium 137 Potassium 3.4 L Chloride 103 Carbon Dioxide 26 Anion Gap 8 BUN 23 H Creatinine 0.9 Creat Clearance w eGFR 82.49 POC Glucometer 138 Random Glucose 129 H Calcium 9.1 Magnesium 2.0 Total Bilirubin 1.2 H AST 64 H ALT 21 Alkaline Phosphatase 200 H Creatine Kinase 55 Troponin I < 0.02 Total Protein 6.3 L Albumin 2.0 L ASSESSMENT/PLAN: 73 y/o M with PMHx of NIDDM, HLD, HTN, Prostate Ca (Received ChemoRT), Prior CVA who presents to the ED after having an episode of unresponsiveness. #Unresponsive followed by shaking -Unclear etiology; Consider Seizure, Less likely syncope, CVA -Will not load with AEM at this time as he is not actively seizing; If he does seize during his inpatient stay, will load with Keppra and Use Benzo's to abort -Hold ASA as Head CT to r/o Bleed pending -Orthostatic VS, Brain MRI, CXR, Echo, Carotid doppler pending -Check A1c, TSH, B12, Folate, RPR, Prealbumin -Neurology (Dr. Holden) consulted -LR @ 60 mls/hr -Keep HOB Elevated -Fall, Seizure, Dysphagia precautions -NPO until speech and swallow evaluation -Physical therapy -Atorvastatin 40mg HS -Tele #Prostate Ca (Received ChemoRT) -Oncology consulted #Elevated Alk PHos, TBili and AST -Check GGT, RUQ US #Anemia, Stable -S/P 1u pRBCs transfused last week -Continue to monitor for signs of active bleeding #NIDDM -ISS BGMs ACHS #HTN -Resume home dose AntiHTN meds once confirmed #FEN -LR @ 60 -Hypokalemia, repleted in ED -NPO pending S&S eval #PPx -DVT: SCDs Visit type - Emergency Visit Emergency Visit: Yes ED Registration Date: 06/09/18 Care time: The patient presented to the Emergency Department on the above date and was hospitalized for further evaluation of their emergent condition. - New Patient This patient is new to me today: Yes Date on this admission: 06/09/18 - Critical Care Critical Care patient: No
--- NOTE | 2018-06-09 04:39 | PN ---
Teaching Attending Note Name of Resident: Anabel Cuello ATTENDING PHYSICIAN STATEMENT I saw and evaluated the patient. I reviewed the resident's note and discussed the case with the resident. I agree with the resident's findings and plan as documented. SUBJECTIVE: Seen and examined; please refer to resident note for further historical information. Briefly, this is a 73 y/o male with a PMH significant for dm, hld , htn, CVA, and prostate CA. He presents to the ER today with family for weakness and what sounds to be syncope vs. seizure episode. Last week he was noted to be wek after a blood transfusion and the family found him lying on the floor; he did not recall the event, doesn't know how he got to the floor, etc. Today he was found by his girlfriend on his bed; she was calling his name and when she didn't get a reply she found him down on his bed having 'the shakes.' He was slow to respond afterwards and once again doesn't recall the inciting event. Denies loss of bowel or bladder function. Denies seeing neurology before. He follows with Dr. Daniels and has got radiation and was recently started on chemotherapy for his prostate cancer and he follows with Dr. Daniels. In the ER he was found to have some LE weakness with R-leg drift on exam (did not present with focal weakness) but no other focal acute complaints. He has been less ambulatory as of lately. 10 sys ROS done and negative aside from HPI PMH PSH, FH, SH reviewed Home Medications Medication Instructions Recorded Amlodipine Besylate 10 mg PO DAILY 11/28/16 Aspirin [ASA -] 81 mg PO DAILY 11/28/16 Atorvastatin Ca [Lipitor] 40 mg PO HS 11/28/16 Bicalutamide 50 mg PO DAILY 05/31/17 Albuterol 0.083% Nebulizer Fanny 1 neb NEB Q6H PRN 06/09/18 [Ventolin 0.083% Nebulizer Soln -] Docusate Sodium [Colace] 100 mg PO DAILY 06/09/18 Dronabinol 2.5 mg PO DAILY 06/09/18 Enzalutamide [Xtandi] 160 mg PO DAILY 06/09/18 Folic Acid 1 mg PO DAILY 06/09/18 Mirtazapine [Remeron -] 15 mg PO DAILY 06/09/18 Vitamin B Complex 1 each PO DAILY 06/09/18 OBJECTIVE: VS, labs, imaging reviewed NAD, AAO, resting comfortably in bed NC AT EOMI PERRLA RRR s1/2 no mgr Lungs CTAB, w/ sym exp NT ND +BS Cranial nerves intact, b/l LE weakness noted with R>L, muscle wasting noted, reflexes intact; gait not tested due to weakness and no additional nursing to prevent fall. He is AAO but will sometimes forget dates, addresses, etc. No word finding difficulties noted. No jung aphasia. Normal mood, appropriate behavior CT head pending Echo pending EKG reviewed CXR pending ASSESSMENT AND PLAN: Patient is a 73 y/o male presenting with shaking episode associated with LOC and worsening weakness suspicious for convulsive syncope vs. seizures 1) LOC with shaking episodes -As described by the family; 2 times in recent past. Actual fall, etc. not witnessed but was seen to be shaking the second time and he doesn't recall the event. History of cancer noted. -Will go ahead and place on telemetry with neurological consultation. Appreciate expert opinion. Neuro checks and seizure precautions ordered. -If he is noted to seize while on the floor will go ahead and load with keppra and can use ativan to abort -Will monitor telemetry. EKG reviewed. Followup echo to see if there is any structural heart disease that could contribute to a syncopal picture; consider CV consultation in the AM. Followup MRI. Followup carotid dopplers. -Continue ASA, high-intensity statin. Check lipids, tsh, a1c. 2) LE weakness -Could be due to muscle wasting but the R-side did appear slightly weaker on examination. -Alongside the above, would consult PT for clearance. Given his falls at home he may benefit from ANDREW. UA not impressive but followup cx. 3) Failure to thrive (BMI 16) -On home dronabinol; can continue. -Check prealbumin given low albumin; monitor PO intake and can consider nutrition consult. 4) Hx Prostate Cancer -Follows with Dr. Daniels; would be helpful to review OP workup/records. Will consult her service for continuation of chemotherapy agent. Appreciate expert opinion. 5) HTN -Verify and continue home medications 6) Hx CVA -Will obtain old records; 7) Hx Achlasia -Continue CCB 8) Hx HLD -Continue statin 9) Hx DM -Checking A1c; SSI for PRN coverage
[2018-06-09] MEDS: LACTATED RINGERS SOLUTION 1,000 ML/1,000 ML INFUS.BAG IV SCH (04:51)
[2018-06-09 06:40] LABS: BASO % 0.2 % (0-2.0); EOS % 0.1 % (0-4.5); HEMATOCRIT 23.3 % (35.4-49); HEMOGLOBIN 7.9 GM/dL (11.7-16.9); LYMPH % 4.5 % (8-40); MCH 29.5 pg (25.7-33.7); MEAN CELL VOLUME 86.9 fl (80-96); MEAN PLT VOLUME 8.3 fl (7.5-11.1); MONO % 5.2 % (3.8-10.2); PLATELET COUNT 229 K/MM3 (134-434); RBC 2.68 M/mm3 (4.00-5.60); RDW 16.6 % (11.9-15.9)
[2018-06-09] MEDS: INSULIN SLIDING SCALE (NOVOLOG) 1 VIAL SQ SCH ×4 (07:07→22:17)
[2018-06-09 07:27] LABS: ALBUMIN 1.8 g/dl (3.4-5.0); ALK PHOS 174 U/L (45-117); ANION GAP 7 MMOL/L (8-16); BILIRUBIN,TOTAL 1.2 mg/dL (0.2-1); BLOOD UREA NITROGEN 22 mg/dL (7-18); CALCIUM 8.4 mg/dL (8.5-10.1); CHLORIDE 105 mmol/L (98-107); CHOLESTEROL 99 mg/dL (50-200); CO2 26 mmol/L (21-32); CREATININE 0.8 mg/dL (0.55-1.3); GLUCOSE,RANDOM 98 mg/dL (74-106); HDL CHOLESTEROL 42 mg/dL (40-60); MAGNESIUM 1.9 mg/dL (1.8-2.4); PHOSPHOROUS 2.1 mg/dL (2.5-4.9); POTASSIUM 3.1 mmol/L (3.5-5.1); SGOT/AST 58 U/L (15-37); SGPT/ALT 17 U/L (13-61); SODIUM 138 mmol/L (136-145); TOT PROT 5.6 g/dl (6.4-8.2); TRIGLYCERIDES 62 mg/dL (0-150)
--- NOTE | 2018-06-09 09:00 | EKG ---
Test Reason : Blood Pressure : / mmHG Vent. Rate : 093 BPM Atrial Rate : 093 BPM P-R Int : 118 ms QRS Dur : 076 ms QT Int : 372 ms P-R-T Axes : 060 -51 086 degrees QTc Int : 462 ms SINUS RHYTHM WITH PREMATURE SUPRAVENTRICULAR COMPLEXES LEFT AXIS DEVIATION ABNORMAL ECG WHEN COMPARED WITH ECG OF 29-NOV-2016 08:52, PREMATURE SUPRAVENTRICULAR COMPLEXES ARE NOW PRESENT MINIMAL CRITERIA FOR ANTEROSEPTAL INFARCT ARE NO LONGER PRESENT Confirmed by JOVITA PUGH, BERE ([id number]) on 06/09/2018 9:00:23 AM Referred By: Confirmed By:BERE HUSSEIN MD
--- NOTE | 2018-06-09 13:20 | PDOC ---
NIH Stroke Scale - Last Known Well Date/Time & Onset Date Last Known Well: 06/08/18 - Initial Evaluation Level of consciousness: Alert Ask patient the month and their age: Answers both correctly Ask patient to open & close eyes; make fist and let go: Obeys both correctly Best gaze (horizontal eye movement): Normal Visual field testing: No visual field loss Facial paresis (Show teeth/raise eyebrows/close eyes tight): Normal symmetrical movement Motor Function: Left Arm: Normal Motor Function: Right Arm: Normal (extends arm 90 (or 45) degrees for 10 seconds without drift Motor Function: Left Leg: Normal (extends leg 30 degrees for 5 seconds without drift) Motor Function: Right Leg: Untestable )Joint fused orlimb amputated), explain: (H/o baseline RLE weakness s/p stroke) Limb Ataxia: No ataxia Sensory(Use pinprick test arms,legs,trunk,face/side to side): Normal Best language (Describe picture, name items, read sentences): No Aphasia Dysarthria (read several words): Normal articulation Extinction and Inattention: No abnormality - Total Score NIH Stroke Scale Score: 0
[2018-06-09] MEDS ORDERED: FUROSEMIDE 40 MG/4 ML INJECTABLE VIAL IVPUSH ONE (16:45)
[2018-06-09] MEDS ORDERED: POTASSIUM CHLORIDE TABS 20 MEQ TABLET.ER (FP) PO ONE (16:46)
--- NOTE | 2018-06-09 16:47 | PN ---
Progress Note, Physician - Current Medication List Current Medications: Active Medications Atorvastatin Calcium (Lipitor -) 40 mg PO HS WILMER Lactated Ringer's (Lactated Ringers Solution) 1,000 ml in 1,000 mls @ 60 mls/ hr IV ASDIR WILMER Last Admin: 06/09/18 04:51 Dose: 60 mls/hr Insulin Aspart (Novolog Vial Sliding Scale -) 1 vial SQ ACHS WILMER; Protocol Last Admin: 06/09/18 12:08 Dose: Not Given - Objective Vital Signs: Vital Signs Temperature 97.8 F 06/09/18 15:00 Pulse Rate 84 06/09/18 15:00 Respiratory Rate 18 06/09/18 15:00 Blood Pressure 132/84 06/09/18 15:00 O2 Sat by Pulse Oximetry (%) 98 06/09/18 08:00 Cardiovascular: Yes: S1, S2 Respiratory: Yes: Regular, CTA Bilaterally Gastrointestinal: Yes: Normal Bowel Sounds, Soft Labs: CBC, BMP 06/09/18 05:20 06/09/18 05:20 Problem List - Problems (1) Syncope Assessment/Plan: -Unclear etiology -Orthostatic - MRI, CXR, Echo, Carotid doppler pending -Check A1c, TSH, B12, Folate, RPR, Prealbumin -Neurology (Dr. Holden) consulted -Cardiology dr díaz -LR @ 60 mls/hr -NPO -Physical therapy -Atorvastatin 40mg HS -Tele Code(s): R55 - SYNCOPE AND COLLAPSE (2) Prostate cancer Assessment/Plan: -Oncology consulted Code(s): C61 - MALIGNANT NEOPLASM OF PROSTATE (3) Anemia Assessment/Plan: -S/P 1u pRBCs transfused last week -Continue to monitor for signs of active bleeding -prbc -gi consult Code(s): D64.9 - ANEMIA, UNSPECIFIED (4) Diabetes Assessment/Plan: -ISS BGMs ACHS Code(s): E11.9 - TYPE 2 DIABETES MELLITUS WITHOUT COMPLICATIONS (5) HTN (hypertension) Assessment/Plan: monitor Code(s): I10 - ESSENTIAL (PRIMARY) HYPERTENSION
--- NOTE | 2018-06-09 18:56 | CONSULT ---
Consult Consult Specialty:: Oncology Referred by:: Dr. Denney Reason for Consultation:: Prostate cancer - History of Present Illness Chief Complaint: Episode of unresponsiveness History of Present Illness: 73M with NIDDM, HTN, CVA, BRCA1+, metastatic prostate ca, s/p multiple lines of treatment, now on olaparib since 05/29/18 presented with AMS after an episode of shaking followed by unresponsiveness, then confusion, as witnessed by yony. In ED noted to be at baseline. Pt c/o generalized weakness. Denies [place], changes in vision, parasthesias, focal weakness. MRI with old infarcts but no new findings. 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: CVA Cardio/Vascular: Yes: HTN, Hyperlipdemia Endocrine: Yes: Diabetes Mellitus - Alcohol/Substance Use Hx Alcohol Use: No - Smoking History Smoking history: Unknown if ever smoked Have you smoked in the past 12 months: No If you are a former smoker, when did you quit?: 2008 Home Medications - Allergies Allergies/Adverse Reactions: Allergies Allergy/AdvReac Type Severity Reaction Status Date / Time No Known Allergies Allergy Verified 11/28/16 11:31 - Home Medications Home Medications: Ambulatory Orders Amlodipine Besylate 10 mg PO DAILY 11/28/16 Aspirin [ASA -] 81 mg PO DAILY 11/28/16 Atorvastatin Ca [Lipitor] 40 mg PO HS 11/28/16 Bicalutamide 50 mg PO DAILY 05/31/17 Albuterol 0.083% Nebulizer Fanny [Ventolin 0.083% Nebulizer Soln -] 1 neb NEB Q6H PRN 06/09/18 Docusate Sodium [Colace] 100 mg PO DAILY 06/09/18 Dronabinol 2.5 mg PO DAILY 06/09/18 Enzalutamide [Xtandi] 160 mg PO DAILY 06/09/18 Folic Acid 1 mg PO DAILY 06/09/18 Mirtazapine [Remeron -] 15 mg PO DAILY 06/09/18 Vitamin B Complex 1 each PO DAILY 06/09/18 Review of Systems - Review of Systems Constitutional: reports: Lethargy, Weakness Eyes: reports: No Symptoms Cardiovascular: reports: No Symptoms Respiratory: reports: No Symptoms Gastrointestinal: reports: No Symptoms Genitourinary: reports: No Symptoms. denies: Incontinence Neurological: reports: Change in LOC. denies: Dizziness, Headache Hematology/Lymphatic: reports: No Symptoms Physical Exam Vital Signs: Vital Signs Temperature 98 F 06/09/18 17:05 Pulse Rate 84 06/09/18 17:05 Respiratory Rate 18 06/09/18 17:05 Blood Pressure 113/62 06/09/18 17:05 O2 Sat by Pulse Oximetry (%) 98 06/09/18 08:00 Constitutional: Yes: Calm, Thin Eyes: Yes: Conjunctiva Clear Cardiovascular: Yes: Regular Rate and Rhythm Respiratory: Yes: CTA Bilaterally Gastrointestinal: Yes: Normal Bowel Sounds, Soft. No: Tenderness Labs: CBC, BMP 06/09/18 05:20 06/09/18 05:20 Assessment/Plan 73M with NIDDM, HTN, CVA, BRCA1+, metastatic prostate ca, s/p multiple lines of treatment, now on olaparib since 05/29/18 presented with AMS after an episode of shaking followed by unresponsiveness. MRI with old infarcts but no new findings. Neuro eval pending. Olaparib does not appear to be associated with seizures
[2018-06-09] MEDS: ATORVASTATIN CA 40 MG TABLET (FP) PO SCH (22:18)
[2018-06-10 06:33] LABS: BASO % 0.2 % (0-2.0); EOS % 0.1 % (0-4.5); HEMATOCRIT 29.5 % (35.4-49); HEMOGLOBIN 10.3 GM/dL (11.7-16.9); LYMPH % 5.4 % (8-40); MCHC 34.8 g/dl (32.0-35.9); MEAN CELL VOLUME 86.1 fl (80-96); MEAN PLT VOLUME 8.2 fl (7.5-11.1); MONO % 6.3 % (3.8-10.2); PLATELET COUNT 223 K/MM3 (134-434); RBC 3.42 M/mm3 (4.00-5.60); RDW 15.9 % (11.9-15.9); WHITE BLOOD COUNT 9.7 K/mm3 (4.0-10.0)
[2018-06-10] MEDS: LACTATED RINGERS SOLUTION 1,000 ML/1,000 ML INFUS.BAG IV SCH ×2 (07:06→18:55)
[2018-06-10 07:16] LABS: ALBUMIN 1.9 g/dl (3.4-5.0); ALK PHOS 173 U/L (45-117); ANION GAP 11 MMOL/L (8-16); BILIRUBIN,TOTAL 1.7 mg/dL (0.2-1); BLOOD UREA NITROGEN 18 mg/dL (7-18); CALCIUM 8.4 mg/dL (8.5-10.1); CHLORIDE 106 mmol/L (98-107); CO2 24 mmol/L (21-32); CREATININE 0.8 mg/dL (0.55-1.3); GLUCOSE,RANDOM 65 mg/dL (74-106); MAGNESIUM 1.7 mg/dL (1.8-2.4); POTASSIUM 3.1 mmol/L (3.5-5.1); SGOT/AST 137 U/L (15-37); SGPT/ALT 20 U/L (13-61); SODIUM 141 mmol/L (136-145); TOT PROT 5.8 g/dl (6.4-8.2)
[2018-06-10] MEDS: INSULIN SLIDING SCALE (NOVOLOG) 1 VIAL SQ SCH ×4 (08:02→21:51)
--- NOTE | 2018-06-10 09:21 | CON.GI ---
Consult Consult Specialty:: GI Referred by:: Dr. Mary Hart Reason for Consultation:: Anemia - History of Present Illness History of Present Illness: Patient is a 73 y/o female with past medical history of NIDDM, HLD, HTN, Prostate CA (Chemo and RT), prior CVA. While in ER patient noted to be anemic with Hg 7.9, received PRBC transfusion and Hg imrpove to 10.3. Patient is s/p EGD 11/2016 and 05/2017 both times for achalasia. Patient had colonoscopy 2017 which showed ileal mucosa with mild acute and chronic ileitis. Elevated LFT with AST 137, Alk Phos 173, GGT 97. Abdominal US shows overdistended gallbladder without intraluminal stones or wall thickening. Mild hepatomegaly with a slightly denseand hetergenous echotexture as well as multiple hypoechoic/ masslike densities largest measuring 3.8cmin maximum dimension. Rule out metastasis. 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: CVA Cardio/Vascular: Yes: HTN, Hyperlipdemia Endocrine: Yes: Diabetes Mellitus - Alcohol/Substance Use Hx Alcohol Use: No - Smoking History Smoking history: Unknown if ever smoked Have you smoked in the past 12 months: No If you are a former smoker, when did you quit?: 2008 - Social History History of Recent Travel: No Home Medications - Allergies Allergies/Adverse Reactions: Allergies Allergy/AdvReac Type Severity Reaction Status Date / Time No Known Allergies Allergy Verified 11/28/16 11:31 - Home Medications Home Medications: Ambulatory Orders Amlodipine Besylate 10 mg PO DAILY 11/28/16 Aspirin [ASA -] 81 mg PO DAILY 11/28/16 Atorvastatin Ca [Lipitor] 40 mg PO HS 11/28/16 Bicalutamide 50 mg PO DAILY 05/31/17 Albuterol 0.083% Nebulizer Fanny [Ventolin 0.083% Nebulizer Soln -] 1 neb NEB Q6H PRN 06/09/18 Docusate Sodium [Colace] 100 mg PO DAILY 06/09/18 Dronabinol 2.5 mg PO DAILY 06/09/18 Enzalutamide [Xtandi] 160 mg PO DAILY 06/09/18 Folic Acid 1 mg PO DAILY 06/09/18 Mirtazapine [Remeron -] 15 mg PO DAILY 06/09/18 Vitamin B Complex 1 each PO DAILY 06/09/18 Review of Systems - Review of Systems Constitutional: reports: No Symptoms Eyes: reports: No Symptoms HENT: reports: No Symptoms Neck: reports: No Symptoms Cardiovascular: reports: No Symptoms Respiratory: reports: No Symptoms Gastrointestinal: reports: No Symptoms Genitourinary: reports: No Symptoms Breasts: reports: No Symptoms Reported Musculoskeletal: reports: No Symptoms Integumentary: reports: No Symptoms Neurological: reports: No Symptoms Endocrine: reports: No Symptoms Hematology/Lymphatic: reports: No Symptoms Psychiatric: reports: No Symptoms Physical Exam-GI Vital Signs: Vital Signs Temperature 98.3 F 06/10/18 07:53 Pulse Rate 115 H 06/10/18 07:53 Respiratory Rate 18 06/10/18 00:30 Blood Pressure 104/65 06/10/18 07:53 O2 Sat by Pulse Oximetry (%) 99 06/10/18 07:53 Constitutional: Yes: No Distress, Calm Eyes: Yes: Conjunctiva Clear HENT: Yes: Atraumatic Cardiovascular: Yes: Regular Rate and Rhythm Respiratory: Yes: CTA Bilaterally, Luis-Bustamante Gastrointestinal Inspection: Yes: WNL. No: Ascites, Distention, Hernia, Scars, Other ...Auscultate: Yes: Normoactive Bowel Sounds. No: Hyperactive Bowel Sounds, Hypoactive Bowel Sounds, No Bowel Sounds, Other ...Palpate: Yes: Soft. No: Firm/Rigid, Guarding, Hepatomegaly, Mass, Pulsatile Mass, Splenomegaly, Tenderness, Tenderness, Epigastium, Tenderness, Rebound, Other ...Percussion: Yes: Tympanitic. No: Dullness, Fluid Wave, Other Neurological: Yes: Alert, Pre-Existing Deficit Psychiatric: Yes: Alert, Oriented Labs: CBC, BMP 06/10/18 06:00 06/10/18 05:30 Problem List - Problems (1) Liver mass Assessment/Plan: R>Abdominal and Pelvic CT scan >Viral Hep panel, AFP, CEA, CA 19-9, PSA Code(s): R16.0 - HEPATOMEGALY, NOT ELSEWHERE CLASSIFIED (2) Anemia Assessment/Plan: >monitor Hg daily >transfuse for Hg <8.0 Code(s): D64.9 - ANEMIA, UNSPECIFIED
--- NOTE | 2018-06-10 10:30 | PN ---
Progress Note, Physician Chief Complaint: patient seen in cardiology unit awake alert no chest pain no sob - Current Medication List Current Medications: Active Medications Atorvastatin Calcium (Lipitor -) 40 mg PO HS [facility] Last Admin: 06/09/18 22:18 Dose: Not Given Furosemide (Lasix Injection -) 40 mg IVPUSH ONCE ONE Stop: 06/09/18 16:46 Lactated Ringer's (Lactated Ringers Solution) 1,000 ml in 1,000 mls @ 60 mls/ hr IV ASDIR WILMER Last Admin: 06/10/18 07:06 Dose: 60 mls/hr Potassium Chloride (Potassium Chloride 10 Meq Premix Ivpb -) 10 meq in 100 mls @ 100 mls/hr IVPB Q60M WILMER Stop: 06/10/18 13:29 Insulin Aspart (Novolog Vial Sliding Scale -) 1 vial SQ [facility]; Protocol Last Admin: 06/10/18 08:02 Dose: Not Given Magnesium Sulfate (Magnesium Sulfate) 1 gm IVPB ONCE ONE Stop: 06/10/18 10:19 Potassium Chloride (K-Dur -) 20 meq PO ONCE ONE Stop: 06/09/18 16:47 - Objective Vital Signs: Vital Signs Temperature 98.3 F 06/10/18 07:53 Pulse Rate 115 H 06/10/18 07:53 Respiratory Rate 18 06/10/18 00:30 Blood Pressure 104/65 06/10/18 07:53 O2 Sat by Pulse Oximetry (%) 99 06/10/18 07:53 Constitutional: Yes: Calm, Thin Cardiovascular: Yes: Regular Rate and Rhythm, S1, S2 Respiratory: Yes: CTA Bilaterally Gastrointestinal: Yes: Normal Bowel Sounds, Soft Edema: No Neurological: Yes: Alert, Oriented Labs: CBC, BMP 06/10/18 06:00 06/10/18 05:30 Problem List - Problems (1) Anemia Assessment/Plan: s/p prbc now improved possible egd Code(s): D64.9 - ANEMIA, UNSPECIFIED (2) Syncope Assessment/Plan: carotid doppler no significant stenosis no evidence of acute infarct-n MRI brain getting echo today cardiolgy and neurology anastasia muro repleted Code(s): R55 - SYNCOPE AND COLLAPSE (3) Liver mass Assessment/Plan: ct scan abdomen with contrast liver lesion seen on sono of liver Code(s): R16.0 - HEPATOMEGALY, NOT ELSEWHERE CLASSIFIED
[2018-06-10] MEDS ORDERED: MAGNESIUM SULF 50% (8.12 MEQ/2 ML-1 GM VIAL) IVPB ONE (10:45)
--- NOTE | 2018-06-10 10:50 | ECHO ---
Name: LYNETTE SALINAS Exam:Adult Echocardiogram Study Date: 06/10/2018 10:06 AM Age: 73 yrs Reason For Study: R/O STROKE Height: 66 in Weight: 100 lb BSA: 1.5 m2 MMode/2D Measurements & Calculations IVSd: 1.1 cm Ao root diam: 2.9 cm LVIDd: 3.2 cm LA dimension: 3.2 cm LVIDs: 2.2 cm LVPWd: 0.82 cm EDV(Teich): 39.9 ml LVOT diam: 2.0 cm ESV(Teich): 15.7 ml Doppler Measurements & Calculations MV E max nicholas: 60.2 cm/sec Ao V2 max: 135.7 cm/sec MV A max nicholas: 76.0 cm/sec Ao max P.4 mmHg MV E/A: 0.79 MV dec time: 0.20 sec LEI(V,D): 2.7 cm2 LV V1 max P.6 mmHg TR max nicholas: 271.0 cm/sec LV V1 max: 118.0 cm/sec TR max P.4 mmHg PA V2 max: 116.7 cm/sec Med Peak E' Nicholas: 5.8 cm/sec PA max P.5 mmHg Med E/e': 10.5 Lat Peak E' Nicholas: 5.5 cm/sec Lat E/e': 11.0 Procedure A complete two-dimensional transthoracic echocardiogram was performed (2D, M-mode, Doppler and color flow Doppler). Left Ventricle The left ventricle is normal in size. Left ventricular systolic function is normal. Ejection Fraction = 60- 65%. Grade I diastolic dysfunction, (abnormal relaxation pattern). Ratio E/E'= 6. No regional wall mo tion abnormalities noted. Right Ventricle The right ventricle is normal size. The right ventricular systolic function is normal. Atria The left atrial size is normal. Right atrial size is normal. Mitral Valve There is mild mitral annular calcification. There is mild mitral regurgitation. Tricuspid Valve The tricuspid valve is normal in structure and function. There is mild to moderate tricuspid regurgit ation. Pulmonary artery systolic pressure is at least 36 mmHg assuming RA pressure of 3 mmHg. Aortic Valve There is mild to moderate aortic sclerosis.;. No aortic regurgitation is present. Pulmonic Valve The pulmonic valve is not well visualized. Great Vessels The aortic root is normal size. Pericardium/Pleura There is no pericardial effusion. Interpretation Summary The left ventricle is normal in size. Left ventricular systolic function is normal. No regional wall motion abnormalities noted. Ejection Fraction = 60-65%. Grade I diastolic dysfunction, (abnormal relaxation pattern). Ratio E/E'= 6 The right ventricular systolic function is normal. The left atrial size is normal. Right atrial size is normal. There is mild mitral annular calcification. There is mild mitral regurgitation. There is mild to moderate tricuspid regurgitation. Pulmonary artery systolic pressure is at least 36 mmHg assuming RA pressure of 3 mmHg There is mild to moderate aortic sclerosis. There is no pericardial effusion. Previous study is not available for comparison Theodore Jaimes MD 06/10/2018 10:49 AM
[2018-06-10] MEDS ORDERED: MAGNESIUM 1GM/D5W - 1 GM/100 ML IVPB IVPB ONE (11:08)
[2018-06-10] MEDS ORDERED: KCL 10 MEQ IVPB 10 MEQ/100 ML INFUS.BAG IVPB ONE (11:08)
[2018-06-10] MEDS: KCL 10 MEQ IVPB 10 MEQ/100 ML INFUS.BAG IVPB SCH ×3 (11:09→13:57)
--- NOTE | 2018-06-10 11:39 | CONSULT ---
Consult - text type - Consultation Consultation Note: NEUROLOGY CONSULT APPRECIATED: This 73 yo RH single man lives alone and ambulates with cane. PMHX DM, HTN, HLD, Previous CVA with right sided weakness, prior ETOH use, Prostate CA, anemia and achalacia (with chronic dysphagia-s/p endoscopy x 2). Meds includes amlodipine, asa, atorvastatin, bicalutamide, albuterol, drobaninol , enzalutamide, folic acid, mirtazapine 15 mg qhs. Requires help with cooking, cleaning and assisted by sister and [id number] who provide chopped meals. Pt is vague historian unable to provide cogent history. Per ED report, found by friend with period of "unresponsiveness" to name and shaking for unknown amount of time while in bed. Resolved with EMS arrival. Today, reporting mild nausea. Reports extensive weight loss and coughing after eating. Brain MRI (reviewed): Mod atrophy. Old L cerebellar infarct and small left pontine infarct. Extensive periventricular and supratentorial ischemic changes. Carotid duplex: plaques at left and right common carotid bifurcation. L common carotid with 50-60% stenosis. EKG NSR; A1c= 5.8; albumin= 1.8; B12 =1684 TSH= 0.91 RPR nonreactive. Urine WBC= 7 UC= neg BS=65->126 ANNMARIE: Cachetic. 113/63 supine, 135/75 sitting, 140/85 standing. Cor reg. No bruit. Neck supple. NEURO: Awake, alert, responsive. Severely dysarthric speech. Ox "[facility]." "73 years old." No month. No year. President Barney. + glabella CNII-CNXII: EOM full without nystagmus. Reduced rapid tongue mvm'ts. Gag depressed. No facial. Motor: No obvious drift. + Myoclonic jerks. Strength normal except right ankle dorsiflexion. Reflexes brisk throughout. Right Babinski. Coordination: No FTN dystaxia. Sensation: Decreased vibration in toes. Romberg + Gait: Variable, unsteady. Impression: Mod B/L cerebral dysfunction (OMS, chronic features) Seizure vs. hypoglycemic event? Peripheral Neuropathy (c/w diabetes) Toxic Metabolic Encephalopathy with Myoclonic jerks. 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 Observe off AED's for now. Feed patient as per MsAvis Rowe while seated upright and observed. May need PEG for true nutritional support and hydration. D/C mirtazapine Continue to monitor BS's and H/H PT eval for gait safety with walker adoption services manager eval. Patient may need MOLDER SETTER or SNF LOC. Thank you very much, Dillan Holden MD
[2018-06-10] MEDS ORDERED: KCL 10 MEQ IVPB 20 MEQ/200 ML INFUS.BAG IVPB ONE (12:04)
--- NOTE | 2018-06-10 13:12 | CONSULT ---
Admitting History and Physical - Primary Care Physician PCP: Vincent Chong - Admission History of Present Illness: 73M with NIDDM, HTN, CVA, BRCA1+, metastatic prostate ca, s/p multiple lines of treatment, presented with AMS after an episode of shaking followed by unresponsiveness, then confusion, as witnessed by yony. In ED noted to be at baseline. MRI with old infarcts but no new findings. Per GI-Patient noted to be anemic with Hg 7.9, received PRBC transfusion and Hg imrpove to 10.3. Patient is s/p EGD 11/2016 and 05/2017 both times for achalasia. Patient had colonoscopy 08/11/2017 which showed ileal mucosa with mild acute and chronic ileitis. Elevated LFT with AST 137, Alk Phos 173, GGT 97. Abdominal US shows overdistended gallbladder without intraluminal stones or wall thickening. Mild hepatomegaly with a slightly dense and hetergenous echotexture as well as multiple hypoechoic/masslike densities largest measuring 3.8cmin maximum dimension. Rule out metastasis. Neurology Impression: Mod B/L cerebral dysfunction (chronic L cerebellar infarct , OMS) Seizure vs. hypoglycemic event? Peripheral Neuropathy (c/w diabetes) R/O Toxic Metabolic Encephalopathy Multi-factorial gait dysfunction secondary to above. NPO for possible endoscopy per chart. Seen in ER, arousable. 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 Old L cerebellar infarct involving mason. Extensive periventricular and supratentorial ischemic changes.) - General Mental Status: Awake and Alert, Able to Follow Commands, Forgetful, Vague Attention: Intact Ability to Follow Directions: Fair Head/Neck Control: Fair - Hearing Hearing: Functional Speech Evaluation - Communication Primary Language: NEPALI Communication: Yes: Simple Responses (vague. "Ask my sister") - Speech Production Able to Make Needs Known: Yes: Mildly Impaired Intelligibility: Yes: Mildly Impaired - Speech Characteristics Voice Loudness: Mildly Soft/Quiet Voice Pitch: Yes: Normal Voice Phonatory-based Quality: Yes: Hoarse, Glottal Snow, Dysphonia Nasal Resonance: Normal Articulation: Yes: Imprecise (slight) - Language/Auditory Comprehension Follows: Yes: 1 Stage Simple Commands - Language/Verbal Expression Able to Communicate Wants and Needs: Yes: Mildly Impaired - Swallow Evaluation/Bedside Assessment Current Nutritional Intake: NPO Oral Secretions: Yes: WFL Dentition: Yes: Missing Teeth Facial Symmetry at Rest: Symmetrical Facial Symmetry on Retraction: Symmetrical Against Resistance Opening: Normal Against Resistance Closing: Normal Pucker Lips: Normal, Weak Smile: Normal, Weak Lingual Movement: Normal, Symmetric, Reduced Protrusion Lingual Movement Strgth Against Opposition: Reduced Laryngeal Movement: Able to Palpate Rate of Intake: WFL Timing of Swallow: Delayed Coughing/Throat Clear: No Change in Voice: No Recommendations - Speech Evaluation, Impression/Plan Impression: NPO. With permission from primary ER nurse, swallow asessed with 1 small sip of water with no overt cough noted. Dysphonia. Vague but verbal. Mopaning but could not elaborate on symptoms. - Dysphagia Impressions/Plan Dysphagia Impressions: Minimal Impairment, Ongoing Evaluation *Silent aspiration: cannot be R/O at bedside Recommendations: Other (once PO diet [id number], trial puree, nectar thick liquid. ) - Recommendations Medication Administration: Crushed with applesauce
[2018-06-10] MEDS ORDERED: THIAMINE HCL 200 MG/2 ML VIAL ONE (14:11)
[2018-06-10] MEDS: THIAMINE HCL 200 MG/2 ML VIAL IVPB SCH ×2 (14:12→21:52)
--- NOTE | 2018-06-10 16:31 | CON.CARD ---
Consult Consult Specialty:: Cardiology Referred by:: Dr. Chong Reason for Consultation:: Syncope - History of Present Illness Chief Complaint: found with dec responsiveness History of Present Illness: 73 year old male with a pmhx of dm, hld, htn, CVA, and prostate CA admitted with a period of unresponsiveness. Pt was found by his girlfriend with decreased responsiveness and shaking. noted to have confusion when he came back to baseline. pt seen and examined in the ER in nad. sleeping but when awoken able to communicate. states he is very tired. does not recall the event. no reported complaint of chest pain, sob, palpitations. 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: Yes: CVA Cardio/Vascular: Yes: HTN, Hyperlipdemia Endocrine: Yes: Diabetes Mellitus - Alcohol/Substance Use Hx Alcohol Use: No - Smoking History Smoking history: Unknown if ever smoked Have you smoked in the past 12 months: No If you are a former smoker, when did you quit?: 2008 - Social History History of Recent Travel: No Home Medications - Allergies Allergies/Adverse Reactions: Allergies Allergy/AdvReac Type Severity Reaction Status Date / Time No Known Allergies Allergy Verified 11/28/16 11:31 - Home Medications Home Medications: Ambulatory Orders Amlodipine Besylate 10 mg PO DAILY 11/28/16 Aspirin [ASA -] 81 mg PO DAILY 11/28/16 Atorvastatin Ca [Lipitor] 40 mg PO HS 11/28/16 Bicalutamide 50 mg PO DAILY 05/31/17 Albuterol 0.083% Nebulizer Fanny [Ventolin 0.083% Nebulizer Soln -] 1 neb NEB Q6H PRN 06/09/18 Docusate Sodium [Colace] 100 mg PO DAILY 06/09/18 Dronabinol 2.5 mg PO DAILY 06/09/18 Enzalutamide [Xtandi] 160 mg PO DAILY 06/09/18 Folic Acid 1 mg PO DAILY 06/09/18 Mirtazapine [Remeron -] 15 mg PO DAILY 06/09/18 Vitamin B Complex 1 each PO DAILY 06/09/18 Family Disease History - Family Disease History Family History: Denies Review of Systems - Review of Systems Constitutional: reports: Lethargy, Malaise, Weakness. denies: No Symptoms, Chills, Diaphoresis, Fever, Loss of Appetite, Night Sweats, Unintentional Wgt. Loss, Other Eyes: denies: No Symptoms, Blind Spots, Blurred Vision, Double Vision, Eye Pain , Floaters, Photophobia, Recent Change in Vision, Other HENT: denies: No Symptoms, Difficult Swallowing, Ear Discharge, Ear Pain, Epistaxis, Gingival Bleeding, Hearing Loss, Mouth Swelling, Nasal Congestion, Ocular Prosthesis, Throat Pain, Toothache, Ringing in Ears, Other Neck: denies: No Symptoms, Decreased ROM, Lumps, Pain on Movement, Stiffness, Swollen Glands, Tenderness, Other Cardiovascular: denies: No Symptoms, Chest Pain, Edema, Palpitations, Shortness of Breath, Other Respiratory: denies: No Symptoms, Cough, Exercise Intolerance, Hemoptysis, Orthopnea, PND, Snoring, SOB, SOB on Exertion, Wheezing, Other Gastrointestinal: denies: No Symptoms, Abdominal Pain, Bloating, Constipation, Diarrhea, Dysphagia, Indigestion, Melena, Nausea, Rectal Bleeding, Vomiting, Vomiting Blood, Other Genitourinary: denies: No Symptoms, Burning, Discharge, Dysuria, Flank Pain, Frequency, Hematuria, Incontinence, Lesions, Menses, Pain, Testicular Mass, Testicular Pain, Testicular Swelling, Urgency, Vaginal Bleeding, Other Breasts: denies: No Symptoms Reported, See HPI, Breast Implants, Discharge from Nipple, Lumps, Pain, Skin Changes, Other Musculoskeletal: reports: Muscle Weakness. denies: No Symptoms, Back Pain, Crepitus, Decreased ROM, Extremity Pain, Joint Pain, Joint Swelling, Muscle Pain , Muscle Cramps, Other Integumentary: denies: No Symptoms, Blister, Bruising, Change in Color, Eczema, Erythema, Incision, Lesions, Lump, Pallor, Pruritis, Rash, Wound, Other Neurological: reports: Change in LOC, Confusion, Weakness. denies: No Symptoms , Change in Speech, Dizziness, Headache, Incoordination, Numbness, Parasthesia, Pre-Existing Deficit, Seizure, Syncope, Tremors, Unsteady Gait, Other Endocrine: denies: No Symptoms, Excessive Sweating, Flushing, Increased Hunger, Increased Thirst, Intolerance to Cold, Intolerance to Heat, Unexplained Weight Gain, Unexplained Weight Loss, Other Hematology/Lymphatic: denies: No Symptoms, Easily Bruised, Excessive Bleeding, Swollen Glands, Other Psychiatric: denies: No Symptoms, Altered Sleep Pattern, Anxiety, Depression, Hallucinations, Panic, Paranoia, Suicidal, Other Vital Signs: Vital Signs Temperature 98.8 F 06/10/18 14:14 Pulse Rate 87 06/10/18 14:14 Respiratory Rate 18 06/10/18 14:14 Blood Pressure 99/56 L 06/10/18 14:14 O2 Sat by Pulse Oximetry (%) 96 06/10/18 14:14 Constitutional: Yes: No Distress, Calm Eyes: Yes: Conjunctiva Clear, EOM Intact HENT: Yes: Atraumatic, Normocephalic Respiratory: Yes: Regular, CTA Bilaterally. No: Rales, Rhonchi, Wheezes Gastrointestinal: Yes: Normal Bowel Sounds, Soft Cardiovascular: Yes: Regular Rate and Rhythm. No: Bradycardia, Tachycardia, Pulse Irregular, Gallop, Rub, Varicosities JVD: No Carotid Bruit: No PMI: Non-Displaced Heart Sounds: Yes: S1, S2. No: Split S2, S3, S4, Clicks, Gallop, Rub, Bruit Murmur: No: Systolic Murmur, Diastolic Murmur Musculoskeletal: Yes: WNL Extremities: Yes: WNL Edema: No Peripheral Pulses WNL: Yes Peripheral Pulses: 2+ Left Doralis Pedis, 2+ Right Dorsalis Pedis Neurological: Yes: Alert Psychiatric: Yes: Alert - Other Data Labs, Other Data: CBC, BMP 06/10/18 06:00 06/10/18 05:30 nsr 93bpm with apcs Echo: Report Reviewed Imaging - Results Chest X-ray: Report Reviewed, Image Reviewed EKG: Report Reviewed, Image Reviewed Other: Report Reviewed, Image Reviewed Assessment/Plan 73 year old male with a pmhx of dm, hld, htn, CVA, and prostate CA admitted with a period of unresponsiveness. Pt was found by his girlfriend with decreased responsiveness and shaking. noted to have confusion when he came back to baseline. pt seen and examined in the ER in nad. sleeping but when awoken able to communicate. states he is very tired. does not recall the event. no reported complaint of chest pain, sob, palpitations. Period of unresponsiveness -does not appear cardiac in origin -no ischemia or sig arrhythmia on ekg -cardiac enzymes wnl -echo normal LV systolic function, mild valvular abnl -replete electrolytes -do not suspect arrhythmia at this time, can dc telemetry -if needed holter monitor can be placed on med surg but does not require at this time -neuro work up in progress -no additional inpatient cardiac work up needed at this time. Please call with any additional questions.
--- NOTE | 2018-06-10 17:03 | CONSULT ---
Consult - text type - Consultation Consultation Note: Patient seen and examined Feels weak Hoarseness of voice/congestion Last Vital Signs Temp Pulse Resp BP Pulse Ox 98.6 F 87 20 93/47 L 98 06/10/18 18:42 06/10/18 18:42 06/10/18 18:42 06/10/18 18:42 06/10/18 17:07 Cor: RSR, No murmurs, No gallops Lungs: Coarse breath sounds bilaterally Abd: Soft, Normal bowel sounds, No organomegaly Ext:No significant edema Abnormal Lab Results 06/10/18 06/10/18 05:30 06:00 RBC 3.42 L Hgb 10.3 L Hct 29.5 L D Absolute Neuts (auto) 8.6 H Neutrophils % 88.0 H Lymphocytes % 5.4 L Potassium 3.1 L Random Glucose 65 L Calcium 8.4 L Magnesium 1.7 L Total Bilirubin 1.7 H AST 137 H Alkaline Phosphatase 173 H Total Protein 5.8 L Albumin 1.9 L Active Medications Generic Name Dose Route Start Last Admin Trade Name Celi PRN Reason Stop Dose Admin Atorvastatin Calcium 40 mg 06/09/18 22:00 06/10/18 21:51 Lipitor - PO 40 mg HS WILMER Administration Furosemide 40 mg 06/09/18 16:45 Lasix Injection - IVPUSH 06/09/18 16:46 ONCE ONE Lactated Ringer's 1,000 ml in 1,000 mls @ 60 mls/hr 06/09/18 04:15 06/10/18 18:55 Lactated Ringers Solution IV 60 mls/hr ASDIR WILMER Administration Insulin Aspart 1 vial 06/09/18 07:00 06/10/18 21:51 Novolog Vial Sliding Scale - SQ Not Given ACHS WILMER Protocol Potassium Chloride 20 meq 06/09/18 16:46 K-Dur - PO 06/09/18 16:47 ONCE ONE Thiamine HCl 250 mg 06/10/18 14:00 06/10/18 21:52 Vitamin B1 Injection - IVPB 06/13/18 13:59 250 mg TID WILMER Administration A/P 73 y/o patient with metastatic prostate cancer, liver mets s/p lupron/casodex, abiraterone, enzalutamide. BRCA1+ Coems in with failure to throve/weakness/ altered mental status MRI brain -- old infarcts also with achalasia will check cultures ? aspiration MRI brain --old infarcts ID consult speech and swallow eval. Last dose of enzalutamide --06/08 to switch to olaparib 200mgb bid end of this week
[2018-06-10] MEDS: ATORVASTATIN CA 40 MG TABLET (FP) PO SCH (21:51)
[2018-06-11] MEDS ORDERED: DEXTROSE 5%-WATER - 50 ML IVPB ONE ×2 (01:11→09:43)
[2018-06-11] MEDS ORDERED: PIPERACILLIN/TAZOBACTAM 3.375 GM VIAL IVPB ONE ×2 (01:11→09:43)
[2018-06-11] MEDS: PIPERACILLIN/TAZOB 3.375 GM 3.375 GM in DEXTROSE 5%-WATER - 50 ML IVPB SCH ×2 (02:01→09:49)
[2018-06-11] MEDS: LACTATED RINGERS SOLUTION 1,000 ML/1,000 ML INFUS.BAG IV SCH ×2 (04:59→15:26)
[2018-06-11] MEDS: THIAMINE HCL 200 MG/2 ML VIAL IVPB SCH ×3 (05:06→21:38)
[2018-06-11 05:48] LABS: BASO % 0.2 % (0-2.0); EOS % 0.1 % (0-4.5); HEMATOCRIT 28.2 % (35.4-49); HEMOGLOBIN 9.7 GM/dL (11.7-16.9); LYMPH % 3.9 % (8-40); MCH 29.5 pg (25.7-33.7); MCHC 34.3 g/dl (32.0-35.9); MEAN CELL VOLUME 86.2 fl (80-96); MEAN PLT VOLUME 7.9 fl (7.5-11.1); MONO % 6.4 % (3.8-10.2); NEUT % 89.4 % (42.8-82.8); PLATELET COUNT 206 K/MM3 (134-434); RBC 3.27 M/mm3 (4.00-5.60); RDW 15.8 % (11.9-15.9); WHITE BLOOD COUNT 10.7 K/mm3 (4.0-10.0)
[2018-06-11] MEDS: INSULIN SLIDING SCALE (NOVOLOG) 1 VIAL SQ SCH ×4 (06:04→21:39)
[2018-06-11 06:24] LABS: ALBUMIN 1.7 g/dl (3.4-5.0); ALK PHOS 166 U/L (45-117); ANION GAP 7 MMOL/L (8-16); BILIRUBIN,TOTAL 1.6 mg/dL (0.2-1); BLOOD UREA NITROGEN 16 mg/dL (7-18); CALCIUM 8.3 mg/dL (8.5-10.1); CHLORIDE 105 mmol/L (98-107); CO2 24 mmol/L (21-32); CREATININE 0.8 mg/dL (0.55-1.3); GLUCOSE,RANDOM 69 mg/dL (74-106); SGOT/AST 114 U/L (15-37); SGPT/ALT 19 U/L (13-61); SODIUM 137 mmol/L (136-145); TOT PROT 5.5 g/dl (6.4-8.2)
--- NOTE | 2018-06-11 08:21 | PN ---
Progress Note, Physician - Current Medication List Current Medications: Active Medications Atorvastatin Calcium (Lipitor -) 40 mg PO HS WILMER Last Admin: 06/10/18 21:51 Dose: 40 mg Furosemide (Lasix Injection -) 40 mg IVPUSH ONCE ONE Stop: 06/09/18 16:46 Lactated Ringer's (Lactated Ringers Solution) 1,000 ml in 1,000 mls @ 60 mls/ hr IV ASDIR WILMER Last Admin: 06/11/18 04:59 Dose: Not Given Piperacillin Sod/Tazobactam (Sod 3.375 gm/ Dextrose) 50 mls @ 100 mls/hr IVPB Q8H-IV WILMER; Protocol Piperacillin Sod/Tazobactam (Sod 3.375 gm/ Dextrose) 50 mls @ 100 mls/hr IVPB Q8H-IV WILMER; Protocol Stop: 06/11/18 18:29 Last Admin: 06/11/18 02:01 Dose: 100 mls/hr Insulin Aspart (Novolog Vial Sliding Scale -) 1 vial SQ ACHS WILMER; Protocol Last Admin: 06/11/18 06:04 Dose: Not Given Potassium Chloride (K-Dur -) 20 meq PO ONCE ONE Stop: 06/09/18 16:47 Thiamine HCl (Vitamin B1 Injection -) 250 mg IVPB TID WILMER Stop: 06/13/18 13:59 Last Admin: 06/11/18 05:06 Dose: 250 mg - Objective Vital Signs: Vital Signs Temperature 97.7 F 06/11/18 05:13 Pulse Rate 81 06/11/18 05:13 Respiratory Rate 20 06/11/18 05:13 Blood Pressure 114/61 06/11/18 05:13 O2 Sat by Pulse Oximetry (%) 100 06/10/18 21:00 Labs: CBC, BMP 06/11/18 05:30 06/11/18 05:30 Problem List - Problems (1) Syncope Assessment/Plan: -Neurology (Dr. oHlden) consulted -Cardiology dr díaz -Physical therapy -Atorvastatin 40mg HS carotid doppler no significant stenosis no evidence of acute infarct-n MRI brain echo Code(s): R55 - SYNCOPE AND COLLAPSE (2) Prostate cancer Assessment/Plan: -With liver mets -Oncology consult noted Code(s): C61 - MALIGNANT NEOPLASM OF PROSTATE (3) Anemia Assessment/Plan: -S/P 1u pRBCs transfused last week -Continue to monitor for signs of active bleeding -prbc -gi consult Code(s): D64.9 - ANEMIA, UNSPECIFIED (4) Diabetes Code(s): E11.9 - TYPE 2 DIABETES MELLITUS WITHOUT COMPLICATIONS (5) HTN (hypertension) Code(s): I10 - ESSENTIAL (PRIMARY) HYPERTENSION
--- NOTE | 2018-06-11 08:40 | PN.GI ---
GI Progress Note Subjective: Patient denies nausea, vomiting, abdominal pain, diarrhea, or melena. Current labs show Hg 9.7. Abdomen and Pelvic CT scan shows nodulrity of the liver with an irregular edge suggesting multiple liver masses, segmental dilation of the intarhepatic bile ducts likely from compression of from above described masses, sclerotic lesion at level of S1 which could represent metastatic disease, esophageal dilation which may represent achalasia. - Objective Vital Signs: Vital Signs Temperature 97.7 F 06/11/18 05:13 Pulse Rate 81 06/11/18 05:13 Respiratory Rate 20 06/11/18 05:13 Blood Pressure 114/61 06/11/18 05:13 O2 Sat by Pulse Oximetry (%) 100 06/10/18 21:00 Constitutional: No Distress, Calm Eyes: Yes: Conjunctiva Clear HENT: Yes: Atraumatic Cardiovascular: Yes: Regular Rate and Rhythm Respiratory: Yes: Regular, CTA Bilaterally Gastrointestinal Inspection: Yes: WNL. No: Ascites, Distention, Hernia, Scars, Other ...Auscultate: Yes: Normoactive Bowel Sounds. No: Hyperactive Bowel Sounds, Hypoactive Bowel Sounds, No Bowel Sounds, Other ...Palpate: Yes: Soft. No: Firm/Rigid, Guarding, Hepatomegaly, Mass, Pulsatile Mass, Splenomegaly, Tenderness, Tenderness, Epigastium, Tenderness, Rebound, Other ...Percussion: Yes: Tympanitic. No: Dullness, Fluid Wave, Other Neurological: Yes: Alert, Pre-Existing Deficit Psychiatric: Yes: Alert Labs: CBC, BMP 06/11/18 05:30 06/11/18 05:30 Active Medications Generic Name Dose Route Start Last Admin Trade Name Freq PRN Reason Stop Dose Admin Atorvastatin Calcium 40 mg 06/09/18 22:00 06/10/18 21:51 Lipitor - PO 40 mg HS WILMER Administration Furosemide 40 mg 06/09/18 16:45 Lasix Injection - IVPUSH 06/09/18 16:46 ONCE ONE Lactated Ringer's 1,000 ml in 1,000 mls @ 60 mls/hr 06/09/18 04:15 06/11/18 04:59 Lactated Ringers Solution IV Not Given ASDIR WILMER Piperacillin Sod/Tazobactam 50 mls @ 100 mls/hr 06/11/18 02:00 Sod 3.375 gm/ Dextrose IVPB Q8H-IV WILMER Protocol Piperacillin Sod/Tazobactam 50 mls @ 100 mls/hr 06/11/18 02:00 06/11/18 02:01 Sod 3.375 gm/ Dextrose IVPB 06/11/18 18:29 100 mls/hr Q8H-IV WILMER Administration Protocol Insulin Aspart 1 vial 06/09/18 07:00 06/11/18 06:04 Novolog Vial Sliding Scale - SQ Not Given ACHS WILMER Protocol Potassium Chloride 20 meq 06/09/18 16:46 K-Dur - PO 06/09/18 16:47 ONCE ONE Thiamine HCl 250 mg 06/10/18 14:00 06/11/18 05:06 Vitamin B1 Injection - IVPB 06/13/18 13:59 250 mg TID WILMER Administration Problem List - Problems (1) Anemia Assessment/Plan: >monitor Hg daily >transfuse for Hg <8.0 Code(s): D64.9 - ANEMIA, UNSPECIFIED (2) Neoplasm of uncertain behavior of liver Assessment/Plan: >most likely secondary to metastatic lesion from prostate >Abdominal and Pelvic CT scan results reviewed >Viral Hep panel, AFP, CEA, CA 19-9, PSA >oncology consult >dietary consult Code(s): D37.6 - NEOPLASM OF UNCERTAIN BEHAVIOR OF LIVER, GB & BILE DUCT
--- NOTE | 2018-06-11 10:23 | PN ---
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 Overtly tolerating thin liquid. Only accepting water. CXR- Soft tissue density in right superior mediastinum /esoph dilatation. CT chest 2016 noted Per GI note- s/p EGD 11/2016 and 05/2017 both times for achalasia Cognitively better than yesterday but hesitant and vague. o x [facility], age. Suggest MBS/screen esophagus to r/o impaired esophageal emptying and aspiration (anterograde vs retrograde). Puree/thin liquid HOB elevated during and after meals x 1 hour Magic cup/Ensure pudding/ensure
--- NOTE | 2018-06-11 12:14 | PN ---
Progress Note (short form) - Note Progress Note: ID CONSULT DICTATED R/O ASPIRATION PNEUMONIA METASTATIC CA PENDING C/S EMPIRIC [id number] F/U CXR
--- NOTE | 2018-06-11 12:48 | CONS ---
INFECTIOUS DISEASE CONSULTATION DATE OF CONSULTATION: DATE OF DICTATION: 06/11/2018 The patient is a 73-year-old male who is evaluated for possible aspiration pneumonia. History was obtained from the chart as he cannot give a reliable history. He was admitted to the hospital after a period of unresponsiveness. He was noted to be poorly responsive and was transferred to the emergency room. His course was complicated by elevated white blood cell count. He was seen in consultation by Neurology and Cardiology. An MRI was performed and was negative for acute pathology. Concern was expressed over possible seizure versus hypoglycemic episode. Patient was noted to have cough. Chest x-ray negative for acute infiltrate. He has remained afebrile. Patient has no focal complaint. He denies any chest pain, shortness of breath, cough, or sputum production. Denies vomiting or diarrhea. No complaints of dysuria or hematuria. He denies any urinary retention. PAST MEDICAL HISTORY: Positive for [id number] diabetes mellitus, metastatic prostate cancer, stroke. ALLERGIES: No known allergies. MEDICATIONS: Norvasc, aspirin, Lipitor, albuterol, Colace, Remeron. SOCIAL HISTORY: He resides in the community. Nonsmoker, nondrinker. LABORATORY DATA: White count 10.7; neutrophils 89%, lymphocytes 4%, monocytes 6%; hematocrit 28.2; platelets 206. BUN 16, creatinine 0.8. Urinalysis: White cells 7. Chest x-ray negative for acute infiltrate. Blood cultures are pending. PHYSICAL EXAMINATION: General: The patient is awake and alert. He is cachectic and chronically ill appearing. Vital Signs: Temperature 97.7; blood pressure 114/61; pulse 81, regular; respirations 20 per minute. HEENT: Sclerae anicteric. Heart: Sounds S1, S2. Lungs: Rhonchi bilaterally. Abdomen: Soft, nontender. Extremities: Negative for edema. Negative Homans sign. IMPRESSION: 1. Rule out aspiration pneumonia secondary to period of unresponsiveness. 2. Leukocytosis. 3. Metastatic cancer. Await cultures. Empiric antibiotic coverage with ceftriaxone. Repeat chest x-ray. Aspiration precautions. Will follow. Thank you for the kind referral. GERSON WILSON M.D. [id number]
--- NOTE | 2018-06-11 13:08 | PN ---
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 Known prostatic cancer primary. CT of Abdomen/Pelvis noted with possible liver mets and sclerotic lesion at level of S1. Pt currently tolerating puree, thin liquids without coughing. MBS pending today. WBC= 10.7 currently treated empirically for ? aspiration pneumonia with ceftriaxone. BS 60-120s. NEURO: Awake, alert, responsive. Dysarthric. Ox to [facility]. OX name and "73 years old" Slightly improved rapid tongue mvm'ts. Swallow intact. Motor: No myoclonic jerks. Strength normal except right ankle dorsiflexion, inversion and eversion (4-/5). Reflexes brisk throughout. Right Babinski. Sensation: Decreased vibration in toes. Impression: Mod B/L cerebral dysfunction (OMS, chronic features) Worsened by Toxic-Metabolic Encephalopathy (? aspiration vs. UTI ) R L5 radiculopathy possibly due to metastatic disease to S1 vertebral body. 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 Mobilize pt OOB to chair for meals Thank you very much, Dillan Holden MD
[2018-06-11] MEDS: CEFTRIAXONE 2 GM in DEXTROSE 5%-WATER 100 ML IVPB SCH (13:24)
[2018-06-11] MEDS ORDERED: DEXTROSE 5%-WATER 100 ML IVPB ONE (15:20)
[2018-06-11] MEDS: ATORVASTATIN CA 40 MG TABLET (FP) PO SCH (21:38)
[2018-06-12] MEDS: THIAMINE HCL 200 MG/2 ML VIAL IVPB SCH ×3 (05:48→21:54)
[2018-06-12] MEDS: INSULIN SLIDING SCALE (NOVOLOG) 1 VIAL SQ SCH ×4 (06:00→21:54)
[2018-06-12] MEDS: LACTATED RINGERS SOLUTION 1,000 ML/1,000 ML INFUS.BAG IV SCH (06:00)
[2018-06-12] MEDS: PIPERACILLIN/TAZOB 3.375 GM 3.375 GM in DEXTROSE 5%-WATER - 50 ML IVPB SCH (08:07)
--- NOTE | 2018-06-12 08:31 | PN ---
Progress Note, Physician - Current Medication List Current Medications: Active Medications Atorvastatin Calcium (Lipitor -) 40 mg PO HS [facility] Last Admin: 06/11/18 21:38 Dose: 40 mg Furosemide (Lasix Injection -) 40 mg IVPUSH ONCE ONE Stop: 06/09/18 16:46 Lactated Ringer's (Lactated Ringers Solution) 1,000 ml in 1,000 mls @ 60 mls/ hr IV ASDIR [facility] Last Admin: 06/12/18 06:00 Dose: Not Given Ceftriaxone Sodium 2 gm/ (Dextrose) 100 mls @ 200 mls/hr IVPB DAILY [facility]; Protocol Last Admin: 06/11/18 13:24 Dose: 200 mls/hr Insulin Aspart (Novolog Vial Sliding Scale -) 1 vial SQ ACHS [facility]; Protocol Last Admin: 06/12/18 06:00 Dose: Not Given Potassium Chloride (K-Dur -) 20 meq PO ONCE ONE Stop: 06/09/18 16:47 Thiamine HCl (Vitamin B1 Injection -) 250 mg IVPB TID [facility] Stop: 06/13/18 13:59 Last Admin: 06/12/18 05:48 Dose: 250 mg - Objective Vital Signs: Vital Signs Temperature 98.3 F 06/12/18 06:00 Pulse Rate 86 06/12/18 06:00 Respiratory Rate 18 06/12/18 06:00 Blood Pressure 100/55 L 06/12/18 06:00 O2 Sat by Pulse Oximetry (%) 98 06/11/18 21:00 Cardiovascular: Yes: S1, S2 Respiratory: Yes: Regular, CTA Bilaterally Gastrointestinal: Yes: Normal Bowel Sounds, Soft Labs: CBC, BMP 06/11/18 05:30 06/11/18 05:30 Problem List - Problems (1) Failure to thrive Assessment/Plan: -Dietary consult -May need peg Code(s): [id number] - (2) Syncope Assessment/Plan: -Neurology (Dr. Holden) consulted -Cardiology dr díaz -Physical therapy -Atorvastatin 40mg HS carotid doppler no significant stenosis no evidence of acute infarct-n MRI brain echo Code(s): R55 - SYNCOPE AND COLLAPSE (3) Prostate cancer Assessment/Plan: -With liver mets -Oncology consult noted Code(s): C61 - MALIGNANT NEOPLASM OF PROSTATE (4) Anemia Assessment/Plan: -S/P 1u pRBCs transfused last week -Continue to monitor for signs of active bleeding -prbc -gi consult Code(s): D64.9 - ANEMIA, UNSPECIFIED (5) Diabetes Assessment/Plan: -ISS BGMs ACHS Code(s): E11.9 - TYPE 2 DIABETES MELLITUS WITHOUT COMPLICATIONS (6) HTN (hypertension) Assessment/Plan: monitor Code(s): I10 - ESSENTIAL (PRIMARY) HYPERTENSION
[2018-06-12] MEDS ORDERED: DEXTROSE 5%-WATER 100 ML IVPB ONE (08:59)
[2018-06-12 09:00] LABS: BASO % 0.2 % (0-2.0); EOS % 0.1 % (0-4.5); HEMATOCRIT 26.8 % (35.4-49); LYMPH % 3.8 % (8-40); MCH 29.5 pg (25.7-33.7); MCHC 33.5 g/dl (32.0-35.9); MEAN CELL VOLUME 88.1 fl (80-96); NEUT % 90.9 % (42.8-82.8); PLATELET COUNT 179 K/MM3 (134-434); RBC 3.04 M/mm3 (4.00-5.60); WHITE BLOOD COUNT 10.7 K/mm3 (4.0-10.0)
[2018-06-12 09:12] LABS: ALBUMIN 1.6 g/dl (3.4-5.0); ALK PHOS 145 U/L (45-117); ANION GAP 9 MMOL/L (8-16); BILIRUBIN,TOTAL 1.7 mg/dL (0.2-1); BLOOD UREA NITROGEN 18 mg/dL (7-18); CALCIUM 8.3 mg/dL (8.5-10.1); CHLORIDE 105 mmol/L (98-107); CO2 24 mmol/L (21-32); CREATININE 0.9 mg/dL (0.55-1.3); GLUCOSE,RANDOM 66 mg/dL (74-106); SGOT/AST 79 U/L (15-37); SGPT/ALT 16 U/L (13-61); SODIUM 137 mmol/L (136-145)
[2018-06-12] MEDS: CEFTRIAXONE 2 GM in DEXTROSE 5%-WATER 100 ML IVPB SCH (09:29)
--- NOTE | 2018-06-12 12:04 | PN ---
Progress Note, DRAW FRAME RUNNER - Note Progress Note: Selected Entries 06/10/18 06/10/18 06/10/18 00:15 00:30 01:07 Breakfast Lunch Temperature 98.0 F 98.1 F 98.0 F 06/10/18 06/11/18 06/11/18 07:53 02:00 05:13 Breakfast Lunch Temperature 98.3 F 98.4 F 97.7 F 06/11/18 06/11/18 06/11/18 10:00 12:52 18:00 Breakfast 0 Lunch 25% Temperature 97.6 F 97.9 F 06/11/18 06/12/18 06/12/18 22:00 01:59 06:00 Breakfast Lunch Temperature 98.6 F 98.0 F 98.3 F 06/12/18 06/12/18 10:00 10:24 Breakfast 0 Lunch Temperature 98.0 F Laboratory Tests 06/10/18 06/11/18 06/12/18 06:00 05:30 05:30 WBC 9.7 10.7 H 10.7 H MBS completed. (-) aspiration Esophageal dysphagia Suggest-Puree/thin liquids/ensure/magic cup
[2018-06-12] MEDS: ATORVASTATIN CA 40 MG TABLET (FP) PO SCH (21:53)
[2018-06-13] MEDS: THIAMINE HCL 200 MG/2 ML VIAL IVPB SCH (05:44)
[2018-06-13 06:06] LABS: BASO % 0.5 % (0-2.0); EOS % 0.1 % (0-4.5); HEMATOCRIT 24.1 % (35.4-49); HEMOGLOBIN 8.2 GM/dL (11.7-16.9); LYMPH % 3.6 % (8-40); MCH 29.5 pg (25.7-33.7); MCHC 33.9 g/dl (32.0-35.9); MEAN CELL VOLUME 86.8 fl (80-96); MONO % 5.8 % (3.8-10.2); PLATELET COUNT 151 K/MM3 (134-434); RBC 2.78 M/mm3 (4.00-5.60); WHITE BLOOD COUNT 11.3 K/mm3 (4.0-10.0)
[2018-06-13] MEDS: INSULIN SLIDING SCALE (NOVOLOG) 1 VIAL SQ SCH ×4 (06:07→22:32)
[2018-06-13 06:27] LABS: ALBUMIN 1.4 g/dl (3.4-5.0); BILIRUBIN,TOTAL 1.5 mg/dL (0.2-1); CALCIUM 7.9 mg/dL (8.5-10.1); CREATININE 0.9 mg/dL (0.55-1.3); POTASSIUM 3.2 mmol/L (3.5-5.1)
--- NOTE | 2018-06-13 08:52 | PN.GI ---
GI Progress Note Subjective: As per RN report patient has been having poor appetite. Denies abdominal pain, nausea, vomiting, diarrhea, rectal bleeding, melena. - Objective Vital Signs: Vital Signs Temperature 98.3 F 06/13/18 05:34 Pulse Rate 102 H 06/13/18 08:46 Respiratory Rate 18 06/13/18 08:46 Blood Pressure 117/81 06/13/18 08:46 O2 Sat by Pulse Oximetry (%) 97 06/12/18 21:00 Constitutional: No Distress, Calm, Cachectic Eyes: Yes: Conjunctiva Clear HENT: Yes: Atraumatic Cardiovascular: Yes: Regular Rate and Rhythm Respiratory: Yes: Regular, Rhonchi Gastrointestinal Inspection: Yes: WNL. No: Ascites, Distention, Hernia, Scars, Other ...Auscultate: Yes: Normoactive Bowel Sounds. No: Hyperactive Bowel Sounds, Hypoactive Bowel Sounds, No Bowel Sounds, Other ...Palpate: Yes: Soft. No: Firm/Rigid, Guarding, Hepatomegaly, Mass, Pulsatile Mass, Splenomegaly, Tenderness, Tenderness, Epigastium, Tenderness, Rebound, Other ...Percussion: Yes: Tympanitic. No: Dullness, Fluid Wave, Other Neurological: Yes: Alert, Oriented Psychiatric: Yes: Alert, Oriented Labs: CBC, BMP 06/13/18 05:30 06/13/18 05:30 Problem List - Problems (1) Anemia Assessment/Plan: >monitor Hg daily >transfuse for Hg <8.2 Code(s): D64.9 - ANEMIA, UNSPECIFIED (2) Neoplasm of uncertain behavior of liver Assessment/Plan: >most likely secondary to metastatic lesion from prostate >Abdominal and Pelvic CT scan results reviewed >Viral Hep panel pending > AFP 3.6, CEA 73, CA 19-9 2021, PSA 46 >oncology consult >dietary consult Code(s): D37.6 - NEOPLASM OF UNCERTAIN BEHAVIOR OF LIVER, GB & BILE DUCT
[2018-06-13] MEDS ORDERED: DEXTROSE 5%-WATER 100 ML IVPB ONE (08:58)
[2018-06-13] MEDS: CEFTRIAXONE 2 GM in DEXTROSE 5%-WATER 100 ML IVPB SCH (09:29)
[2018-06-13] MEDS: LACTATED RINGERS SOLUTION 1,000 ML/1,000 ML INFUS.BAG IV SCH (10:58)
[2018-06-13] MEDS ORDERED: POTASSIUM CHLORIDE ORAL LIQUID 20 MEQ/15 ML PO ONE (12:16)
--- NOTE | 2018-06-13 12:48 | PN ---
Progress Note, Physician Chief Complaint: spoke to patient about he appetite and weight loss and regarding peg tube he is agreeable wants the peg sister has brought new olapararib- medication to start end of this week - Current Medication List Current Medications: Active Medications Atorvastatin Calcium (Lipitor -) 40 mg PO HS [facility] Last Admin: 06/12/18 21:53 Dose: 40 mg Lactated Ringer's (Lactated Ringers Solution) 1,000 ml in 1,000 mls @ 60 mls/ hr IV ASDIR [facility] Last Admin: 06/13/18 10:58 Dose: 60 mls/hr Ceftriaxone Sodium 2 gm/ (Dextrose) 100 mls @ 200 mls/hr IVPB DAILY [facility]; Protocol Last Admin: 06/13/18 09:29 Dose: 200 mls/hr Insulin Aspart (Novolog Vial Sliding Scale -) 1 vial SQ ACHS [facility]; Protocol Last Admin: 06/13/18 12:29 Dose: Not Given Thiamine HCl (Vitamin B1 Injection -) 250 mg IVPB TID [facility] Stop: 06/13/18 13:59 Last Admin: 06/13/18 05:44 Dose: 250 mg - Objective Vital Signs: Vital Signs Temperature 98.1 F 06/13/18 09:23 Pulse Rate 102 H 06/13/18 08:46 Respiratory Rate 18 06/13/18 08:46 Blood Pressure 117/81 06/13/18 08:46 O2 Sat by Pulse Oximetry (%) 97 06/13/18 09:00 Constitutional: Yes: Calm, Thin Cardiovascular: Yes: Regular Rate and Rhythm, S1, S2 Respiratory: Yes: CTA Bilaterally Gastrointestinal: Yes: Normal Bowel Sounds, Soft Edema: No Neurological: Yes: Alert, Oriented Labs: CBC, BMP 06/13/18 05:30 06/13/18 05:30 Problem List - Problems (1) Failure to thrive Assessment/Plan: weight loss and low albumin- malnutiriton agreeable to peg Code(s): [id number] - (2) Anemia Assessment/Plan: s/p prbc gi on board Code(s): D64.9 - ANEMIA, UNSPECIFIED (3) Syncope Assessment/Plan: carotid doppler no significant stenosis no evidence of acute infarct-n MRI brain echo - left ventricle size and systolic function is normal' on thiamine per neurology lytes repleted Code(s): R55 - SYNCOPE AND COLLAPSE (4) Liver mass Assessment/Plan: ct scan abdomen with contrast- multiple nodularites seen in liver- metastatic disease oncology n board to start new chemo medication end of this week l Code(s): R16.0 - HEPATOMEGALY, NOT ELSEWHERE CLASSIFIED
--- NOTE | 2018-06-13 13:04 | PN ---
Progress Note, REGULATION SUPERVISOR - Note Progress Note: Selected Entries 06/13/18 06/13/18 06/13/18 01:32 05:34 09:23 Breakfast Diet Tolerated Temperature 97.6 F 98.3 F 98.1 F 06/13/18 10:39 Breakfast 25% Diet Tolerated Poor Temperature Laboratory Tests 06/13/18 05:30 WBC 11.3 H MBS performed. Impaired esophageal emptying contributing to poor intake and places pt at risk of retrograde aspiration. TF being considered for improved nutritional intake.
[2018-06-13 21:09] LABS: HEP B CORE AB, IGM Negative (Negative); HEP B CORE AB, TOT Positive (Negative)
[2018-06-13] MEDS: ATORVASTATIN CA 40 MG TABLET (FP) PO SCH (22:32)
[2018-06-13] MEDS: OLAPARIB PO SCH (22:33)
--- NOTE | 2018-06-13 23:06 | PN ---
Progress Note (short form) - Note Progress Note: Patient seen and examined Poor performance status, failure to thrive Last Vital Signs Temp Pulse Resp BP Pulse Ox 97.9 F 71 18 115/71 96 06/14/18 06:00 06/14/18 06:00 06/14/18 08:57 06/14/18 06:00 06/14/18 08:57 Cor: RSR, No murmurs, No gallops Lungs: Clear to P&A Abd: Soft, Normal bowel sounds, No organomegaly Ext:No significant edema Labs/Meds reviewed A/P 73 y/o patient with metastatic prostate cancer, liver mets extensive, s/p lupron /casodex, abiraterone, enzalutamide. BRCA1 positive Now with failure to thrive. Also with achalasia Patient to start olaparib 200mg bid Goals of care discussion ongoing
[2018-06-14] MEDS: DEXTROSE 5%-0.45% SALINE 1,000 ML IV SCH (02:02)
[2018-06-14] MEDS: LACTATED RINGERS SOLUTION 1,000 ML/1,000 ML INFUS.BAG IV SCH (06:14)
[2018-06-14] MEDS: INSULIN SLIDING SCALE (NOVOLOG) 1 VIAL SQ SCH ×3 (06:14→17:53)
[2018-06-14 08:17] LABS: ALBUMIN 1.4 g/dl (3.4-5.0); BILIRUBIN,TOTAL 1.4 mg/dL (0.2-1); CREATININE 0.8 mg/dL (0.55-1.3); POTASSIUM 3.4 mmol/L (3.5-5.1); TOT PROT 4.7 g/dl (6.4-8.2)
[2018-06-14] MEDS ORDERED: DEXTROSE 5%-WATER 100 ML IVPB ONE (08:45)
[2018-06-14] MEDS: CEFTRIAXONE 2 GM in DEXTROSE 5%-WATER 100 ML IVPB SCH (09:09)
[2018-06-14] MEDS: OLAPARIB PO SCH ×2 (09:10→21:57)
[2018-06-14] MEDS ORDERED: PT OWN MED DRAWER 7, Y5N ONE ×2 (09:42→22:29)
[2018-06-14] MEDS ORDERED: POTASSIUM CHLORIDE TABS 20 MEQ TABLET.ER (FP) PO ONE (11:59)
[2018-06-14] MEDS ORDERED: AMINO ACIDS 4.25%/D5W 1,000 ML IV SCH (12:15)
--- NOTE | 2018-06-14 12:23 | PN ---
Progress Note, Physician - Current Medication List Current Medications: Active Medications Atorvastatin Calcium (Lipitor -) 40 mg PO HS [facility] Last Admin: 06/13/18 22:32 Dose: 40 mg Lactated Ringer's (Lactated Ringers Solution) 1,000 ml in 1,000 mls @ 60 mls/ hr IV ASDIR [facility] Last Admin: 06/14/18 06:14 Dose: Not Given Ceftriaxone Sodium 2 gm/ (Dextrose) 100 mls @ 200 mls/hr IVPB DAILY [facility]; Protocol Last Admin: 06/14/18 09:09 Dose: 200 mls/hr Dextrose/Sodium Chloride (D5-1/2ns -) 1,000 mls @ 60 mls/hr IV ASDIR [facility] Last Admin: 06/14/18 02:02 Dose: 60 mls/hr Insulin Aspart (Novolog Vial Sliding Scale -) 1 vial SQ ACHS [facility]; Protocol Last Admin: 06/14/18 11:34 Dose: Not Given Lynparza 100mg (Tablet) 2 each PO BID [facility] Last Admin: 06/14/18 09:10 Dose: 2 each - Objective Vital Signs: Vital Signs Temperature 98.1 F 06/14/18 10:00 Pulse Rate 96 H 06/14/18 10:00 Respiratory Rate 18 06/14/18 10:00 Blood Pressure 121/67 06/14/18 10:00 O2 Sat by Pulse Oximetry (%) 96 06/14/18 08:57 Labs: CBC, BMP 06/13/18 05:30 06/14/18 06:00 Problem List - Problems (1) Failure to thrive Code(s): [id number] - (2) Anemia Code(s): D64.9 - ANEMIA, UNSPECIFIED (3) Syncope Code(s): R55 - SYNCOPE AND COLLAPSE (4) Liver mass Code(s): R16.0 - HEPATOMEGALY, NOT ELSEWHERE CLASSIFIED
--- NOTE | 2018-06-14 12:28 | PN ---
Progress Note (short form) - Note Progress Note: NEUROLOGY PROGRESS: Consults from GI, heme-onc and FILL PLANT OPERATOR read and appreciated. Known prostatic cancer primary w/ liver mets. Lumbar MRI C+/C-(reviewed): straightening of lordosis. Multi-level disc desiccation. Scattered metastasis vertebral bodies raf. S1 and L1 but NO extension into spinal canal or lateral recesses to explain the distal weakness of the right leg. Continues with poor appetite, with consideration of parental Nutrition. Still receiving insulin. Remains on ceftriaxone for possible ? aspiration PNA. BS 60-120s. Neg SLR. NEURO: Awake, alert, responsive. Dysarthric. Ox to [facility]. OX name and "June 2019" Reduced rapid tongue mvm'ts. Gag impaired but Pt Swallows H2) without coughing . Motor: Strong grasps. Strength normal except right ankle dorsiflexion , plantarflexion, inversion and eversion (4-/5) Sensation: Decreased pinch in toes. 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 ? FUMIGATOR AND STERILIZER microvascular. ? Right sciatic mononeuropathy Suggest: Continue current regimen. Would consider D/C of Insulin and continued BS monitoring due to decreased PO intake and documented hypoglycemia PM&R consultation with EMG/NCS of legs if desired. Begin bedside PT. Prognosis guarded Thank you very much, Dillan Holden MD
--- NOTE | 2018-06-14 12:50 | PN ---
Progress Note, Physician Chief Complaint: patient seen and examined - Current Medication List Current Medications: Active Medications Atorvastatin Calcium (Lipitor -) 40 mg PO HS [facility] Last Admin: 06/13/18 22:32 Dose: 40 mg Lactated Ringer's (Lactated Ringers Solution) 1,000 ml in 1,000 mls @ 60 mls/ hr IV ASDIR [facility] Last Admin: 06/14/18 06:14 Dose: Not Given Ceftriaxone Sodium 2 gm/ (Dextrose) 100 mls @ 200 mls/hr IVPB DAILY [facility]; Protocol Last Admin: 06/14/18 09:09 Dose: 200 mls/hr Dextrose/Sodium Chloride (D5-1/2ns -) 1,000 mls @ 60 mls/hr IV ASDIR [facility] Last Admin: 06/14/18 02:02 Dose: 60 mls/hr Insulin Aspart (Novolog Vial Sliding Scale -) 1 vial SQ ACHS [facility]; Protocol Last Admin: 06/14/18 11:34 Dose: Not Given Lynparza 100mg (Tablet) 2 each PO BID [facility] Last Admin: 06/14/18 09:10 Dose: 2 each - Objective Vital Signs: Vital Signs Temperature 98.1 F 06/14/18 10:00 Pulse Rate 96 H 06/14/18 10:00 Respiratory Rate 18 06/14/18 10:00 Blood Pressure 121/67 06/14/18 10:00 O2 Sat by Pulse Oximetry (%) 96 06/14/18 08:57 Labs: CBC, BMP 06/13/18 05:30 06/14/18 06:00 Problem List - Problems (1) Failure to thrive Assessment/Plan: weight loss and low albumin- kamila agreeable to peg d/w IR and Dr biswas plan for Ng tube placement on sunday then GI to place peg tube clear liquid diet and reglan and then NPO after lunch on sunday Code(s): [id number] - (2) Anemia Assessment/Plan: s/p prbc gi on board egd Code(s): D64.9 - ANEMIA, UNSPECIFIED (3) Syncope Assessment/Plan: carotid doppler no significant stenosis no evidence of acute infarct-n MRI brain echo - left ventricle size and systolic function is normal' on thiamine per neurology lytes repleted Code(s): R55 - SYNCOPE AND COLLAPSE (4) Liver mass Assessment/Plan: ct scan abdomen with contrast- multiple nodularites seen in liver- metastatic disease oncology n board to start new chemo medication end of this week l Code(s): R16.0 - HEPATOMEGALY, NOT ELSEWHERE CLASSIFIED
[2018-06-14 12:58] LABS: BASO % 0.3 % (0-2.0); EOS % 0.1 % (0-4.5); HEMATOCRIT 23.9 % (35.4-49); HEMOGLOBIN 7.8 GM/dL (11.7-16.9); LYMPH % 2.8 % (8-40); MCH 28.8 pg (25.7-33.7); MCHC 32.7 g/dl (32.0-35.9); MEAN CELL VOLUME 88.1 fl (80-96); MEAN PLT VOLUME 9.3 fl (7.5-11.1); MONO % 4.1 % (3.8-10.2); NEUT % 92.7 % (42.8-82.8); PLATELET COUNT 149 K/MM3 (134-434); RBC 2.71 M/mm3 (4.00-5.60); RDW 16.7 % (11.9-15.9); WHITE BLOOD COUNT 9.2 K/mm3 (4.0-10.0)
[2018-06-14 14:33] LABS: PLATELET ESTIMATE DECREASED
[2018-06-14] MEDS: METOCLOPRAMIDE HCL 5 MG/5 ML UNIT DOSE CUP PO SCH ×2 (17:48→21:57)
[2018-06-14] MEDS: ATORVASTATIN CA 40 MG TABLET (FP) PO SCH (21:57)
[2018-06-15] MEDS: LACTATED RINGERS SOLUTION 1,000 ML/1,000 ML INFUS.BAG IV SCH (03:27)
[2018-06-15] MEDS: DEXTROSE 5%-0.45% SALINE 1,000 ML IV SCH (03:27)
[2018-06-15] MEDS: METOCLOPRAMIDE HCL 5 MG/5 ML UNIT DOSE CUP PO SCH ×2 (06:11→10:19)
[2018-06-15 08:20] LABS: ALBUMIN 1.4 g/dl (3.4-5.0); BILIRUBIN,TOTAL 1.3 mg/dL (0.2-1); CALCIUM 7.7 mg/dL (8.5-10.1); CREATININE 0.9 mg/dL (0.55-1.3); POTASSIUM 3.7 mmol/L (3.5-5.1); TOT PROT 4.9 g/dl (6.4-8.2)
[2018-06-15] MEDS ORDERED: DEXTROSE 5%-WATER 100 ML IVPB ONE (10:19)
[2018-06-15] MEDS: CEFTRIAXONE 2 GM in DEXTROSE 5%-WATER 100 ML IVPB SCH (10:19)
[2018-06-15] MEDS: OLAPARIB PO SCH ×2 (10:20→22:20)
--- NOTE | 2018-06-15 11:31 | PN ---
Progress Note, Physician Chief Complaint: FTT Liver metastasis Pneumonia History of Present Illness: Weak appearing Son at bedside moist Cough Overall poor prognosis on clear liquids, however coughing - Current Medication List Current Medications: Active Medications Atorvastatin Calcium (Lipitor -) 40 mg PO HS [facility] Last Admin: 06/14/18 21:57 Dose: 40 mg Lactated Ringer's (Lactated Ringers Solution) 1,000 ml in 1,000 mls @ 60 mls/ hr IV ASDIR [facility] Last Admin: 06/15/18 03:27 Dose: Not Given Ceftriaxone Sodium 2 gm/ (Dextrose) 100 mls @ 200 mls/hr IVPB DAILY [facility]; Protocol Last Admin: 06/15/18 10:19 Dose: 200 mls/hr Dextrose/Sodium Chloride (D5-1/2ns -) 1,000 mls @ 60 mls/hr IV ASDIR [facility] Last Admin: 06/15/18 03:27 Dose: 60 mls/hr Metoclopramide HCl (Reglan Oral Solution -) 5 mg PO ACHS [facility] Last Admin: 06/15/18 10:19 Dose: 5 mg Lynparza 100mg (Tablet) 2 each PO BID [facility] Last Admin: 06/15/18 10:20 Dose: 2 each - Objective Vital Signs: Vital Signs Temperature 98.4 F 06/15/18 08:37 Pulse Rate 96 H 06/15/18 08:37 Respiratory Rate 18 06/15/18 08:37 Blood Pressure 126/74 06/15/18 08:37 O2 Sat by Pulse Oximetry (%) 95 06/15/18 10:00 Constitutional: Yes: No Distress, Calm, Cachectic Cardiovascular: Yes: Regular Rate and Rhythm Respiratory: Yes: On Nasal O2, Rhonchi (diffuse) Gastrointestinal: Yes: Normal Bowel Sounds, Soft Genitourinary: Yes: WNL Musculoskeletal: Yes: Muscle Weakness Extremities: Yes: WNL Edema: No Peripheral Pulses WNL: Yes Neurological: Yes: Alert, Oriented Psychiatric: Yes: Alert, Oriented Labs: CBC, BMP 06/14/18 12:55 06/15/18 05:15 Problem List - Problems (1) Unintentional weight loss Assessment/Plan: -likely 2/2 to metastatic disease Code(s): R63.4 - ABNORMAL WEIGHT LOSS (2) Anemia Assessment/Plan: -check stool OB -B12 and thyroid normal -Check iron studies Code(s): D64.9 - ANEMIA, UNSPECIFIED (3) Diabetes Assessment/Plan: -not diabetic -A1c at 5.4 -On LR -On clear liquid diet Code(s): E11.9 - TYPE 2 DIABETES MELLITUS WITHOUT COMPLICATIONS (4) Metastatic cancer Assessment/Plan: -liver -Oncology/hematology on board -started on lynparza Code(s): C79.9 - SECONDARY MALIGNANT NEOPLASM OF UNSPECIFIED SITE (5) Failure to thrive Assessment/Plan: -Plan for G tube Code(s): SRF8408 - (6) Pneumonia Assessment/Plan: -CXR developing right LL infiltrates -afebrile -On ceftriaxone IV -Nasal O2 PRN -Bronchodilators -Mucomyst neb -Seen by [place]- likely aspirating -Change to NPO Code(s): J18.9 - PNEUMONIA, UNSPECIFIED ORGANISM (7) Malnutrition Code(s): E46 - UNSPECIFIED PROTEIN-CALORIE MALNUTRITION Qualifiers: Protein-calorie malnutrition severity: severe Assessment/Plan see problem list Poor prognosis Plan for G tube on Sunday
[2018-06-15] MEDS ORDERED: DEXTROSE 50%-WATER - 25 GM/50 ML VIAL IVPUSH PRN (11:52)
[2018-06-15] MEDS: ACETYLCYSTEINE 20% 200MG/ML 4 ML VIAL *FOR ORAL / INH USE ONLY NEB SCH ×2 (12:20→21:30)
[2018-06-15] MEDS: ALBUTEROL SO4 0.083% IH SOL 2.5 MG/3 ML VIAL.NEB. NEB SCH ×3 (12:20→21:30)
[2018-06-15] MEDS: DEXTROSE 10%-WATER - 1,000 ML IV SCH (13:07)
[2018-06-15] MEDS: METOCLOPRAMIDE HCL INJECTION 10 MG/2 ML VIAL IVPUSH SCH ×2 (17:14→22:12)
[2018-06-16] MEDS: METOCLOPRAMIDE HCL INJECTION 10 MG/2 ML VIAL IVPUSH SCH ×4 (06:17→21:44)
[2018-06-16] MEDS: DEXTROSE 10%-WATER - 1,000 ML IV SCH (07:14)
[2018-06-16] MEDS: ALBUTEROL SO4 0.083% IH SOL 2.5 MG/3 ML VIAL.NEB. NEB SCH ×4 (08:00→21:30)
[2018-06-16 08:08] LABS: SERUM IRON SATURATION 19 % (15-55); TOTAL IRON BINDING CAPACITY 142 ug/dL (250-450); UIBC 115 ug/dL (111-343)
--- NOTE | 2018-06-16 09:46 | PN ---
Progress Note, Physician Chief Complaint: FTT Liver metastasis Pneumonia History of Present Illness: Weak appearing Son at bedside moist Cough Overall poor prognosis NPO now due to aspiration Started on D10 due to hypoglycemic episodes Labs for this AM still pending - Current Medication List Current Medications: Active Medications Acetylcysteine (Mucomyst 20 Oral / Inh Use Only*) 400 mg NEB BID [facility] Last Admin: 06/15/18 21:30 Dose: 400 mg Albuterol Sulfate (Ventolin 0.083% Nebulizer Soln -) 1 amp NEB RQID [facility] Last Admin: 06/16/18 08:00 Dose: 1 amp Dextrose (D50w (Vial) -) 25 gm IVPUSH PRN PRN PRN Reason: HYPOGLYCEMIA Ceftriaxone Sodium 2 gm/ (Dextrose) 100 mls @ 200 mls/hr IVPB DAILY [facility]; Protocol Last Admin: 06/15/18 10:19 Dose: 200 mls/hr Dextrose (D10w -) 1,000 mls @ 50 mls/hr IV ASDIR [facility] Last Admin: 06/16/18 07:14 Dose: 50 mls/hr Metoclopramide HCl (Reglan Injection -) 5 mg IVPUSH ACHS [facility] Last Admin: 06/16/18 06:17 Dose: 5 mg Lynparza 100mg (Tablet) 2 each PO BID [facility] Last Admin: 06/15/18 22:20 Dose: 2 each - Objective Vital Signs: Vital Signs Temperature 97.4 F L 06/16/18 06:05 Pulse Rate 95 H 06/16/18 06:05 Respiratory Rate 20 06/16/18 06:05 Blood Pressure 92/52 L 06/16/18 06:05 O2 Sat by Pulse Oximetry (%) 99 06/15/18 21:00 Constitutional: Yes: No Distress, Calm, Cachectic Cardiovascular: Yes: Regular Rate and Rhythm Respiratory: Yes: On Nasal O2, Rhonchi (diffuse), SOB on Exertion Gastrointestinal: Yes: Normal Bowel Sounds, Soft, Ascites Musculoskeletal: Yes: Muscle Weakness Extremities: Yes: WNL Edema: No Peripheral Pulses WNL: Yes Neurological: Yes: Alert, Oriented Psychiatric: Yes: Alert, Oriented Labs: CBC, BMP 06/14/18 12:55 06/15/18 05:15 Problem List - Problems (1) Unintentional weight loss Assessment/Plan: -likely 2/2 to metastatic disease Code(s): R63.4 - ABNORMAL WEIGHT LOSS (2) Anemia Assessment/Plan: -check stool OB -B12 and thyroid normal -Check iron studies Code(s): D64.9 - ANEMIA, UNSPECIFIED (3) Diabetes Assessment/Plan: -not diabetic -A1c at 5.4 -On LR -NPO -Started on D10, Code(s): E11.9 - TYPE 2 DIABETES MELLITUS WITHOUT COMPLICATIONS (4) Metastatic cancer Assessment/Plan: -liver -Oncology/hematology on board -started on lynparza Code(s): C79.9 - SECONDARY MALIGNANT NEOPLASM OF UNSPECIFIED SITE (5) Failure to thrive Assessment/Plan: -Plan for G tube -place NGT Code(s): VQA8307 - (6) Pneumonia Assessment/Plan: -CXR developing right LL infiltrates -afebrile -On ceftriaxone IV -Nasal O2 PRN -Bronchodilators -Mucomyst neb -Seen by HOSPICE CASE MANAGER- likely aspirating -NPO Code(s): J18.9 - PNEUMONIA, UNSPECIFIED ORGANISM (7) Malnutrition Code(s): E46 - UNSPECIFIED PROTEIN-CALORIE MALNUTRITION Qualifiers: Protein-calorie malnutrition severity: severe Assessment/Plan see problem list Poor prognosis Plan for G tube on Sunday by [facility]
[2018-06-16] MEDS: ACETYLCYSTEINE 20% 200MG/ML 4 ML VIAL *FOR ORAL / INH USE ONLY NEB SCH ×2 (10:00→21:30)
[2018-06-16 10:26] LABS: BASO % 0.4 % (0-2.0); EOS % 0.2 % (0-4.5); HEMATOCRIT 23.3 % (35.4-49); HEMOGLOBIN 7.9 GM/dL (11.7-16.9); LYMPH % 3.3 % (8-40); MCH 29.5 pg (25.7-33.7); MCHC 33.9 g/dl (32.0-35.9); MEAN CELL VOLUME 86.8 fl (80-96); MEAN PLT VOLUME 9.3 fl (7.5-11.1); NEUT % 89.1 % (42.8-82.8); PLATELET COUNT 173 K/MM3 (134-434); RBC 2.68 M/mm3 (4.00-5.60); RDW 16.8 % (11.9-15.9); WHITE BLOOD COUNT 10.5 K/mm3 (4.0-10.0)
[2018-06-16] MEDS ORDERED: DEXTROSE 5%-WATER 100 ML IVPB ONE (10:30)
[2018-06-16] MEDS: OLAPARIB PO SCH ×2 (10:38→21:45)
[2018-06-16] MEDS: CEFTRIAXONE 2 GM in DEXTROSE 5%-WATER 100 ML IVPB SCH (10:39)
[2018-06-16 12:48] LABS: ALBUMIN 1.5 g/dl (3.4-5.0); BILIRUBIN,TOTAL 1.4 mg/dL (0.2-1); CALCIUM 8.1 mg/dL (8.5-10.1); CREATININE 1.1 mg/dL (0.55-1.3); POTASSIUM 3.9 mmol/L (3.5-5.1); TOT PROT 5.3 g/dl (6.4-8.2)
[2018-06-17] MEDS: METOCLOPRAMIDE HCL INJECTION 10 MG/2 ML VIAL IVPUSH SCH ×4 (06:04→22:20)
[2018-06-17 07:45] LABS: BASO % 0.2 % (0-2.0); EOS % 0.4 % (0-4.5); HEMATOCRIT 22.4 % (35.4-49); HEMOGLOBIN 7.7 GM/dL (11.7-16.9); LYMPH % 3.2 % (8-40); MCH 29.2 pg (25.7-33.7); MCHC 34.3 g/dl (32.0-35.9); MEAN CELL VOLUME 85.1 fl (80-96); MONO % 5.7 % (3.8-10.2); NEUT % 90.5 % (42.8-82.8); PLATELET COUNT 162 K/MM3 (134-434); RBC 2.63 M/mm3 (4.00-5.60); RDW 16.2 % (11.9-15.9); WHITE BLOOD COUNT 10.5 K/mm3 (4.0-10.0)
[2018-06-17 08:06] LABS: INR 1.29 (0.83-1.09); PROTHROMBIN TIME (PATIENT) 15.3 SEC (9.7-13.0)
[2018-06-17] MEDS: ACETYLCYSTEINE 20% 200MG/ML 4 ML VIAL *FOR ORAL / INH USE ONLY NEB SCH ×2 (08:16→20:50)
[2018-06-17] MEDS: ALBUTEROL SO4 0.083% IH SOL 2.5 MG/3 ML VIAL.NEB. NEB SCH ×4 (08:17→20:50)
[2018-06-17 08:27] LABS: ACTIVATED PTT 92.2 SECONDS (25.2-36.5)
[2018-06-17 08:44] LABS: ALBUMIN 1.4 g/dl (3.4-5.0); BILIRUBIN,TOTAL 1.6 mg/dL (0.2-1); CALCIUM 8.1 mg/dL (8.5-10.1); CREATININE 1.1 mg/dL (0.55-1.3); POTASSIUM 3.8 mmol/L (3.5-5.1); TOT PROT 5.2 g/dl (6.4-8.2)
--- NOTE | 2018-06-17 09:34 | PN.GI ---
GI Progress Note Subjective: Patient is scheduled for G-tube placement today. Noted with most recent Hg 7.7. Denies dysphagia, nausea, vomiting, abdominal pain, rectal bleeding, melena, or diarrhea. - Objective Vital Signs: Vital Signs Temperature 96.1 F L 06/17/18 08:13 Pulse Rate 106 H 06/17/18 08:13 Respiratory Rate 22 H 06/17/18 08:13 Blood Pressure 118/77 06/17/18 08:13 O2 Sat by Pulse Oximetry (%) 97 06/16/18 21:00 Constitutional: No Distress, Calm Eyes: Yes: Conjunctiva Clear Cardiovascular: Yes: Tachycardia Respiratory: Yes: Diminished Gastrointestinal Inspection: Yes: WNL. No: Ascites, Distention, Hernia, Scars, Other ...Auscultate: Yes: Normoactive Bowel Sounds. No: Hyperactive Bowel Sounds, Hypoactive Bowel Sounds, No Bowel Sounds, Other ...Palpate: Yes: Soft. No: Firm/Rigid, Guarding, Hepatomegaly, Mass, Pulsatile Mass, Splenomegaly, Tenderness, Tenderness, Epigastium, Tenderness, Rebound, Other ...Percussion: Yes: Tympanitic Neurological: Yes: Alert, Oriented Psychiatric: Yes: Alert Labs: CBC, BMP 06/17/18 06:30 06/17/18 06:30 INR, PTT INR 1.29 (0.83-1.09) H 06/17/18 06:30 Active Medications Generic Name Dose Route Start Last Admin Trade Name Freq PRN Reason Stop Dose Admin Acetylcysteine 400 mg 06/17/18 08:15 06/17/18 08:16 Mucomyst 20 Oral / Inh Use Only* NEB 400 mg RBID [facility] Administration Albuterol Sulfate 1 amp 06/15/18 12:15 06/17/18 08:17 Ventolin 0.083% Nebulizer Soln - NEB 1 amp RQID [facility] Administration Dextrose 25 gm 06/15/18 11:52 D50w (Vial) - IVPUSH PRN PRN HYPOGLYCEMIA Ceftriaxone Sodium 2 gm/ 100 mls @ 200 mls/hr 06/11/18 12:45 06/16/18 10:39 Dextrose IVPB 200 mls/hr DAILY [facility] Administration Protocol Dextrose 1,000 mls @ 50 mls/hr 06/15/18 12:00 06/16/18 07:14 D10w - IV 50 mls/hr ASDIR [facility] Administration Metoclopramide HCl 5 mg 06/15/18 16:30 06/17/18 06:04 Reglan Injection - IVPUSH 5 mg ACHS [facility] Administration Lynparza 100mg 2 each 06/13/18 22:00 06/16/18 21:45 Tablet PO Not Given BID [facility] Problem List - Problems (1) Anemia Assessment/Plan: >monitor Hg daily >transfuse for Hg <8.0 >Hg 7.7--will transfuse 1U PRBC >stool OB Code(s): D64.9 - ANEMIA, UNSPECIFIED (2) Neoplasm of uncertain behavior of liver Assessment/Plan: >most likely secondary to metastatic lesion from prostate >Abdominal and Pelvic CT scan results reviewed > AFP 3.6, CEA 73, CA 19-9 2021, PSA 46 >oncology consult >dietary consult >patient scheduled for G tube placement with IR Code(s): D37.6 - NEOPLASM OF UNCERTAIN BEHAVIOR OF LIVER, GB & BILE DUCT
[2018-06-17] MEDS ORDERED: DEXTROSE 5%-WATER 100 ML IVPB ONE (10:17)
[2018-06-17] MEDS: DEXTROSE 10%-WATER - 1,000 ML IV SCH ×2 (10:35→17:32)
[2018-06-17] MEDS: CEFTRIAXONE 2 GM in DEXTROSE 5%-WATER 100 ML IVPB SCH (10:35)
[2018-06-17] MEDS: OLAPARIB PO SCH ×2 (10:35→22:19)
--- NOTE | 2018-06-17 11:36 | PN ---
Progress Note, Physician History of Present Illness: patient awake alert h/h noted to get prbc today and then to go to IR for peg placement - Current Medication List Current Medications: Active Medications Acetylcysteine (Mucomyst 20 Oral / Inh Use Only*) 400 mg NEB [facility] Last Admin: 06/17/18 08:16 Dose: 400 mg Albuterol Sulfate (Ventolin 0.083% Nebulizer Soln -) 1 amp NEB RQID [facility] Last Admin: 06/17/18 11:01 Dose: 1 amp Dextrose (D50w (Vial) -) 25 gm IVPUSH PRN PRN PRN Reason: HYPOGLYCEMIA Ceftriaxone Sodium 2 gm/ (Dextrose) 100 mls @ 200 mls/hr IVPB DAILY [facility]; Protocol Last Admin: 06/17/18 10:35 Dose: 200 mls/hr Dextrose (D10w -) 1,000 mls @ 50 mls/hr IV ASDIR [facility] Last Admin: 06/17/18 10:35 Dose: 50 mls/hr Metoclopramide HCl (Reglan Injection -) 5 mg IVPUSH ACHS [facility] Last Admin: 06/17/18 10:36 Dose: 5 mg Lynparza 100mg (Tablet) 2 each PO BID [facility] Last Admin: 06/17/18 10:35 Dose: Not Given - Objective Vital Signs: Vital Signs Temperature 96.1 F L 06/17/18 08:13 Pulse Rate 106 H 06/17/18 08:13 Respiratory Rate 22 H 06/17/18 08:13 Blood Pressure 118/77 06/17/18 08:13 O2 Sat by Pulse Oximetry (%) 97 06/16/18 21:00 Constitutional: Yes: Calm, Thin Cardiovascular: Yes: Regular Rate and Rhythm, S1, S2 Respiratory: Yes: CTA Bilaterally Gastrointestinal: Yes: Normal Bowel Sounds, Soft Edema: No Neurological: Yes: Alert Labs: CBC, BMP 06/17/18 06:30 06/17/18 06:30 INR, PTT INR 1.29 (0.83-1.09) H 06/17/18 06:30 Problem List - Problems (1) Failure to thrive Assessment/Plan: weight loss and low albumin- malnutiriton agreeable to peg d/w IR and Dr Peñaloza to get peg tube today by IR Code(s): [id number] - (2) Anemia Assessment/Plan: s/p prbc today h/h dopped and unti prbc ordered gi on board egd iv venofer Code(s): D64.9 - ANEMIA, UNSPECIFIED (3) Syncope Assessment/Plan: carotid doppler no significant stenosis no evidence of acute infarct-n MRI brain echo - left ventricle size and systolic function is normal' on thiamine per neurology lytes repleted Code(s): R55 - SYNCOPE AND COLLAPSE (4) Liver mass Assessment/Plan: ct scan abdomen with contrast- multiple nodularites seen in liver- metastatic disease oncology n board to start new chemo medication end of this week l Code(s): R16.0 - HEPATOMEGALY, NOT ELSEWHERE CLASSIFIED
--- NOTE | 2018-06-17 20:56 | PN ---
Progress Note (short form) - Note Progress Note: Patient seen and examined Poor performance status, failure to thrive Last Vital Signs Temp Pulse Resp BP Pulse Ox 97.9 F 119 H 18 140/77 98 06/17/18 19:02 06/17/18 19:02 06/17/18 19:02 06/17/18 19:02 06/17/18 20:45 Cor: RSR, No murmurs, No gallops Lungs: Clear to P&A Abd: Soft, Normal bowel sounds, No organomegaly Ext:No significant edema Labs/Meds reviewed A/P 73 y/o patient with metastatic prostate cancer, liver mets extensive, s/p lupron /casodex, abiraterone, enzalutamide. BRCA1 positive Now with failure to thrive. Also with achalasia. planned for PEG placement on Patient not able to swallow olaparib 200mg bid Goals of care discussion ongoing. will request palliative care team
--- NOTE | 2018-06-18 | PN ---
Progress Note, Physician History of Present Illness: AWAKE, LETHARGIC IN BED DENIES PAIN BREATHING NON LABORED AFEBRILE FOR PEG INSERTION - Current Medication List Current Medications: Active Medications Acetylcysteine (Mucomyst 20 Oral / Inh Use Only*) 400 mg NEB RBID [facility] Last Admin: 06/17/18 20:50 Dose: 400 mg Albuterol Sulfate (Ventolin 0.083% Nebulizer Soln -) 1 amp NEB RQID [facility] Last Admin: 06/17/18 20:50 Dose: 1 amp Dextrose (D50w (Vial) -) 25 gm IVPUSH PRN PRN PRN Reason: HYPOGLYCEMIA Ceftriaxone Sodium 2 gm/ (Dextrose) 100 mls @ 200 mls/hr IVPB DAILY [facility]; Protocol Last Admin: 06/17/18 10:35 Dose: 200 mls/hr Dextrose (D10w -) 1,000 mls @ 50 mls/hr IV ASDIR [facility] Last Admin: 06/17/18 17:32 Dose: Not Given Metoclopramide HCl (Reglan Injection -) 5 mg IVPUSH ACHS [facility] Last Admin: 06/17/18 22:20 Dose: 5 mg Lynparza 100mg (Tablet) 2 each PO BID [facility] Last Admin: 06/17/18 22:19 Dose: Not Given - Objective Vital Signs: Vital Signs Temperature 97.9 F 06/17/18 19:02 Pulse Rate 119 H 06/17/18 19:02 Respiratory Rate 18 06/17/18 19:02 Blood Pressure 140/77 06/17/18 19:02 O2 Sat by Pulse Oximetry (%) 98 06/17/18 20:45 Constitutional: Yes: Cachectic Cardiovascular: Yes: Regular Rate and Rhythm, S1, S2 Respiratory: Yes: Diminished Gastrointestinal: Yes: Normal Bowel Sounds, Soft Edema: No Labs: CBC, BMP 06/17/18 06:30 06/17/18 06:30 INR, PTT INR 1.29 (0.83-1.09) H 06/17/18 06:30 Assessment/Plan R/O ASP PNEUMONIA METASTATIC CA CACHEXIA CONTINUE CEFTRIAXONE FOR PEG
[2018-06-18] MEDS: METOCLOPRAMIDE HCL INJECTION 10 MG/2 ML VIAL IVPUSH SCH ×4 (06:24→22:06)
[2018-06-18 07:13] LABS: BASO % 0.3 % (0-2.0); EOS % 0.1 % (0-4.5); HEMATOCRIT 27.2 % (35.4-49); HEMOGLOBIN 9.4 GM/dL (11.7-16.9); LYMPH % 3.1 % (8-40); MCH 28.9 pg (25.7-33.7); MCHC 34.6 g/dl (32.0-35.9); MEAN CELL VOLUME 83.6 fl (80-96); MEAN PLT VOLUME 8.1 fl (7.5-11.1); MONO % 5.8 % (3.8-10.2); NEUT % 90.7 % (42.8-82.8); PLATELET COUNT 110 K/MM3 (134-434); RBC 3.25 M/mm3 (4.00-5.60); RDW 16.5 % (11.9-15.9); WHITE BLOOD COUNT 10.7 K/mm3 (4.0-10.0)
[2018-06-18 07:41] LABS: ALBUMIN 1.4 g/dl (3.4-5.0); BILIRUBIN,TOTAL 2.1 mg/dL (0.2-1); CALCIUM 8.3 mg/dL (8.5-10.1); CREATININE 1.4 mg/dL (0.55-1.3); POTASSIUM 3.9 mmol/L (3.5-5.1); TOT PROT 5.9 g/dl (6.4-8.2)
[2018-06-18] MEDS: ACETYLCYSTEINE 20% 200MG/ML 4 ML VIAL *FOR ORAL / INH USE ONLY NEB SCH ×2 (07:45→19:30)
[2018-06-18] MEDS: ALBUTEROL SO4 0.083% IH SOL 2.5 MG/3 ML VIAL.NEB. NEB SCH ×4 (07:45→19:30)
--- NOTE | 2018-06-18 08:23 | PN ---
Progress Note, Physician - Current Medication List Current Medications: Active Medications Acetylcysteine (Mucomyst 20 Oral / Inh Use Only*) 400 mg NEB RBID [facility] Last Admin: 06/17/18 20:50 Dose: 400 mg Albuterol Sulfate (Ventolin 0.083% Nebulizer Soln -) 1 amp NEB RQID [facility] Last Admin: 06/17/18 20:50 Dose: 1 amp Dextrose (D50w (Vial) -) 25 gm IVPUSH PRN PRN PRN Reason: HYPOGLYCEMIA Ceftriaxone Sodium 2 gm/ (Dextrose) 100 mls @ 200 mls/hr IVPB DAILY [facility]; Protocol Last Admin: 06/17/18 10:35 Dose: 200 mls/hr Dextrose (D10w -) 1,000 mls @ 50 mls/hr IV ASDIR [facility] Last Admin: 06/17/18 17:32 Dose: Not Given Metoclopramide HCl (Reglan Injection -) 5 mg IVPUSH ACHS [facility] Last Admin: 06/18/18 06:24 Dose: 5 mg Lynparza 100mg (Tablet) 2 each PO BID [facility] Last Admin: 06/17/18 22:19 Dose: Not Given - Objective Vital Signs: Vital Signs Temperature 97.9 F 06/18/18 05:27 Pulse Rate 106 H 06/18/18 05:27 Respiratory Rate 20 06/18/18 05:27 Blood Pressure 115/72 06/18/18 05:27 O2 Sat by Pulse Oximetry (%) 98 06/17/18 20:45 Cardiovascular: Yes: S1, S2 Respiratory: Yes: Regular, CTA Bilaterally Gastrointestinal: Yes: Normal Bowel Sounds, Soft Labs: CBC, BMP 06/18/18 06:00 06/18/18 06:00 INR, PTT INR 1.29 (0.83-1.09) H 06/17/18 06:30 Problem List - Problems (1) Failure to thrive Code(s): KSM0961 - (2) Syncope Code(s): R55 - SYNCOPE AND COLLAPSE (3) Prostate cancer Code(s): C61 - MALIGNANT NEOPLASM OF PROSTATE (4) Anemia Code(s): D64.9 - ANEMIA, UNSPECIFIED (5) Diabetes Code(s): E11.9 - TYPE 2 DIABETES MELLITUS WITHOUT COMPLICATIONS (6) HTN (hypertension) Code(s): I10 - ESSENTIAL (PRIMARY) HYPERTENSION Assessment/Plan - Problems (1) Failure to thrive Assessment/Plan: weight loss and low albumin- kamila agreeable to peg by IR Dr Peñaloza peg tube on hold since no ngt--gi folllow up Code(s): [id number] - (2) Anemia Assessment/Plan: s/p prbc today h/h dopped and unti prbc ordered gi on board egd iv venofer Code(s): D64.9 - ANEMIA, UNSPECIFIED (3) Syncope Assessment/Plan: carotid doppler no significant stenosis no evidence of acute infarct-n MRI brain echo - left ventricle size and systolic function is normal' on thiamine per neurology lytes repleted Code(s): R55 - SYNCOPE AND COLLAPSE (4) Liver mass Assessment/Plan: ct scan abdomen with contrast- multiple nodularites seen in liver- metastatic disease oncology n board to start new chemo medication end of this week l Code(s): R16.0 - HEPATOMEGALY, NOT ELSEWHERE CLASSIFIED
[2018-06-18] MEDS: OLAPARIB PO SCH (10:15)
[2018-06-18] MEDS ORDERED: DEXTROSE 5%-WATER 100 ML IVPB ONE (10:20)
[2018-06-18] MEDS: CEFTRIAXONE 2 GM in DEXTROSE 5%-WATER 100 ML IVPB SCH (10:37)
[2018-06-18] MEDS ORDERED: ceFAZolin SODIUM 1 GM VIAL IVPB ONE (13:55)
[2018-06-18] MEDS ORDERED: CEFAZOLIN 1 GM/D5W 1 GM/50 ML BAG ONE (13:55)
[2018-06-18] MEDS ORDERED: DEXTROSE 10%-WATER - 1,000 ML IV SCH (15:37)
[2018-06-18] MEDS ORDERED: DEXTROSE 50%-WATER - 25 GM/50 ML VIAL IVPUSH PRN (15:37)
[2018-06-19] MEDS: METOCLOPRAMIDE HCL INJECTION 10 MG/2 ML VIAL IVPUSH SCH ×4 (06:46→21:08)
--- NOTE | 2018-06-19 07:51 | PN ---
Progress Note, Physician History of Present Illness: facial droop and lethargy this am s/p peg awake responds to some questions - Current Medication List Current Medications: Active Medications Acetylcysteine (Mucomyst 20 Oral / Inh Use Only*) 400 mg NEB RBID [facility] Last Admin: 06/18/18 19:30 Dose: 400 mg Albuterol Sulfate (Ventolin 0.083% Nebulizer Soln -) 1 amp NEB RQID [facility] Last Admin: 06/18/18 19:30 Dose: 1 amp Bacitracin (Bacitracin -) 1 applic TP DAILY [facility] Dextrose (D50w (Vial) -) 25 gm IVPUSH PRN PRN PRN Reason: HYPOGLYCEMIA Ceftriaxone Sodium 2 gm/ (Dextrose) 100 mls @ 200 mls/hr IVPB DAILY [facility]; Protocol Dextrose (D10w -) 1,000 mls @ 50 mls/hr IV ASDIR [facility] Last Admin: 06/18/18 17:12 Dose: 50 mls/hr Metoclopramide HCl (Reglan Injection -) 5 mg IVPUSH ACHS [facility] Last Admin: 06/19/18 06:46 Dose: 5 mg Non-Formulary Medication (Patient's Own Med) 2 each PO BID [facility] Last Admin: 06/18/18 22:07 Dose: Not Given - Objective Vital Signs: Vital Signs Temperature 97.8 F 06/19/18 06:00 Pulse Rate 92 H 06/19/18 06:00 Respiratory Rate 18 06/19/18 06:00 Blood Pressure 74/46 L 06/19/18 06:00 O2 Sat by Pulse Oximetry (%) 98 06/18/18 20:24 Cardiovascular: Yes: S2, S3 Respiratory: Yes: Diminished, On Nasal O2, Rhonchi Gastrointestinal: Yes: Normal Bowel Sounds, Soft, Other (peg--bleeding) Edema: No Neurological: Yes: Facial Droop, Lethargy Labs: INR, PTT INR 1.29 (0.83-1.09) H 06/17/18 06:30 Problem List - Problems (1) Failure to thrive Code(s): [id number] - (2) Syncope Code(s): R55 - SYNCOPE AND COLLAPSE (3) Prostate cancer Code(s): C61 - MALIGNANT NEOPLASM OF PROSTATE (4) Anemia Code(s): D64.9 - ANEMIA, UNSPECIFIED (5) Diabetes Code(s): E11.9 - TYPE 2 DIABETES MELLITUS WITHOUT COMPLICATIONS (6) HTN (hypertension) Code(s): I10 - ESSENTIAL (PRIMARY) HYPERTENSION Assessment/Plan - Problems (1) Failure to thrive Assessment/Plan: weight loss and low albumin- malnutiriton peg done by IR Dr Peñaloza Code(s): [id number] - (2) Anemia Assessment/Plan: s/p prbc today h/h pending if hgb low prbc to be ordered gi on board Code(s): D64.9 - ANEMIA, UNSPECIFIED (3) Syncope Assessment/Plan: carotid doppler no significant stenosis no evidence of acute infarct-n MRI brain echo - left ventricle size and systolic function is normal' on thiamine per neurology lytes repleted Code(s): R55 - SYNCOPE AND COLLAPSE (4) Liver mass Assessment/Plan: ct scan abdomen with contrast- multiple nodularites seen in liver- metastatic disease oncology n board to start new chemo medication end of this week l Code(s): R16.0 - HEPATOMEGALY, NOT ELSEWHERE CLASSIFIED (5) Facial droop Assessment/Plan: R/O CVA ct scan once bp stable neuro follow up (6) Hypotension Assessment/Plan: R/O GI Bleed cbc stat ivf (7) GI Bleed Assessment/Plan: PPI Follow labs
[2018-06-19] MEDS: ACETYLCYSTEINE 20% 200MG/ML 4 ML VIAL *FOR ORAL / INH USE ONLY NEB SCH ×2 (08:05→21:15)
[2018-06-19] MEDS: ALBUTEROL SO4 0.083% IH SOL 2.5 MG/3 ML VIAL.NEB. NEB SCH ×4 (08:06→21:15)
--- NOTE | 2018-06-19 08:18 | PN.GI ---
GI Progress Note Subjective: Patient seen in the ICU at 6:44 pmPrior to PEG placement the patient was lethargic. CT negattive for CVA. INR was 1.5 this morningPatient is s/p G-tube placement yesterday. Tolerating feeds at 10cc/hr, no reports of vomiting. Dressing over G-tube site noted with sangiunous drainage. No reports of melena or blood in stool from RN. Patient on exam noted to be lethargic. No reports of diarrhea, abdominal pain. The patients dressing was soakeed with blood. Under sterile area, two 4-0 sutures were applied and surgicel applied, good tamponade was accomplished KUB with gastrograffin study - Objective Vital Signs: Vital Signs Temperature 97.8 F 06/19/18 06:00 Pulse Rate 92 H 06/19/18 06:00 Respiratory Rate 18 06/19/18 06:00 Blood Pressure 74/46 L 06/19/18 06:00 O2 Sat by Pulse Oximetry (%) 98 06/18/18 20:24 Constitutional: Mild Distress Cardiovascular: Yes: Regular Rate and Rhythm Respiratory: Yes: Accessory Muscle Use, On Venti-Mask, Rhonchi (bilaterally) Gastrointestinal Inspection: Yes: WNL, Other (G-tube). No: Ascites, Distention , Hernia, Scars ...Auscultate: Yes: Hypoactive Bowel Sounds. No: Normoactive Bowel Sounds, Hyperactive Bowel Sounds, No Bowel Sounds, Other ...Palpate: Yes: Soft. No: Firm/Rigid, Guarding, Hepatomegaly, Mass, Pulsatile Mass, Splenomegaly, Tenderness, Tenderness, Epigastium, Tenderness, Rebound, Other ...Percussion: Yes: Tympanitic. No: Dullness, Fluid Wave, Other Neurological: Yes: Lethargy Labs: INR, PTT INR 1.29 (0.83-1.09) H 06/17/18 06:30 Active Medications Generic Name Dose Route Start Last Admin Trade Name Freq PRN Reason Stop Dose Admin Acetylcysteine 400 mg 06/18/18 20:00 06/19/18 08:05 Mucomyst 20 Oral / Inh Use Only* NEB 400 mg RBID [facility] Administration Albuterol Sulfate 1 amp 06/18/18 16:00 06/19/18 08:06 Ventolin 0.083% Nebulizer Soln - NEB 1 amp RQID [facility] Administration Bacitracin 1 applic 06/19/18 10:00 Bacitracin - TP DAILY [facility] Dextrose 25 gm 06/18/18 15:37 D50w (Vial) - IVPUSH PRN PRN HYPOGLYCEMIA Ceftriaxone Sodium 2 gm/ 100 mls @ 200 mls/hr 06/19/18 10:00 Dextrose IVPB DAILY [facility] Protocol Dextrose 1,000 mls @ 50 mls/hr 06/18/18 15:37 06/18/18 17:12 D10w - IV 50 mls/hr ASDIR [facility] Administration Pantoprazole Sodium 80 mg/ 100 mls @ 10 mls/hr 06/19/18 08:30 Sodium Chloride IVPB Q10H [facility] 8 MG/HR Metoclopramide HCl 5 mg 06/18/18 16:30 06/19/18 06:46 Reglan Injection - IVPUSH 5 mg ACHS [facility] Administration Non-Formulary Medication 2 each 06/18/18 22:00 06/18/18 22:07 Patient's Own Med PO Not Given BID [facility] Problem List - Problems (1) Anemia Assessment/Plan: >monitor Hg daily >transfuse for Hg <8.0 >on 06/18/18 Hg 9.4--most current result pending >stool OB Bleeding from the incision site of the PEG because of coagulopathy from malnutrition R> observe for further bleeding Code(s): D64.9 - ANEMIA, UNSPECIFIED (2) Neoplasm of uncertain behavior of liver Assessment/Plan: >most likely secondary to metastatic lesion from prostate >Abdominal and Pelvic CT scan results reviewed > AFP 3.6, CEA 73, CA 19-9 2021, PSA 46 >oncology consult >dietary consult Code(s): D37.6 - NEOPLASM OF UNCERTAIN BEHAVIOR OF LIVER, GB & BILE DUCT (3) Gastrointestinal tube present Assessment/Plan: >PT/INR ordered >keep abdominal binder open for 4hrs to re-assess site >increase feeds to 30cc/hr, discontinue free water Code(s): Z93.1 - GASTROSTOMY STATUS
[2018-06-19 08:48] LABS: BASO % 0.3 % (0-2.0); EOS % 0.1 % (0-4.5); HEMATOCRIT 21.6 % (35.4-49); HEMOGLOBIN 7.2 GM/dL (11.7-16.9); LYMPH % 4.2 % (8-40); MCH 28.9 pg (25.7-33.7); MCHC 33.3 g/dl (32.0-35.9); MEAN CELL VOLUME 86.9 fl (80-96); MEAN PLT VOLUME 8.2 fl (7.5-11.1); NEUT % 90.4 % (42.8-82.8); PLATELET COUNT 70 K/MM3 (134-434); RBC 2.48 M/mm3 (4.00-5.60); RDW 17.2 % (11.9-15.9); WHITE BLOOD COUNT 9.6 K/mm3 (4.0-10.0)
[2018-06-19] MEDS ORDERED: PT OWN MED DRAWER 7, Y5N ONE ×2 (09:03→21:26)
[2018-06-19 09:22] LABS: ALBUMIN 1.1 g/dl (3.4-5.0); CALCIUM 8.1 mg/dL (8.5-10.1); CREATININE 1.9 mg/dL (0.55-1.3); POTASSIUM 4.1 mmol/L (3.5-5.1); TOT PROT 4.8 g/dl (6.4-8.2)
[2018-06-19 09:55] LABS: INR 1.57 (0.83-1.09); PROTHROMBIN TIME (PATIENT) 18.6 SEC (9.7-13.0)
[2018-06-19] MEDS ORDERED: CEFTRIAXONE 2 GM in DEXTROSE 5%-WATER 100 ML IVPB SCH (10:00)
[2018-06-19] MEDS: DEXTROSE 5%-NORMAL SALINE 1,000 ML IV SCH (10:00)
[2018-06-19 10:21] LABS: ACTIVATED PTT 137.4 SECONDS (25.2-36.5)
[2018-06-19] MEDS ORDERED: SODIUM CHLORIDE 1,000 ML IV STA (10:25)
--- NOTE | 2018-06-19 10:47 | EKG ---
Test Reason : Blood Pressure : / mmHG Vent. Rate : 089 BPM Atrial Rate : 089 BPM P-R Int : 126 ms QRS Dur : 076 ms QT Int : 382 ms P-R-T Axes : 055 -44 059 degrees QTc Int : 464 ms SINUS RHYTHM WITH OCCASIONAL PREMATURE VENTRICULAR COMPLEXES AND PREMATURE ATRIAL COMPLEXES LEFT AXIS DEVIATION ABNORMAL ECG WHEN COMPARED WITH ECG OF 09-JUN-2018 01:18, PREMATURE VENTRICULAR COMPLEXES ARE NOW PRESENT Confirmed by JOVITA PUGH, BERE ([id number]) on 06/19/2018 10:46:53 AM Referred By: Alec TREVIZO Confirmed By:BERE HUSSEIN MD
--- NOTE | 2018-06-19 11:03 | PN ---
Progress Note, Physician History of Present Illness: EVENTS NOTED S/P PEG YESTERDAY COMPLICATED BY BLEEDING AT SITE, HYPOTENSION, LETHARGY AWAKE, LETHARGIC IN BED DENIES PAIN BREATHING NON LABORED AFEBRILE, WBC IMPROVED PLT COUNT DROPPING CR INCREASED - Current Medication List Current Medications: Active Medications Acetylcysteine (Mucomyst 20 Oral / Inh Use Only*) 400 mg NEB RBID [facility] Last Admin: 06/19/18 08:05 Dose: 400 mg Albuterol Sulfate (Ventolin 0.083% Nebulizer Soln -) 1 amp NEB RQID [facility] Last Admin: 06/19/18 08:06 Dose: 1 amp Bacitracin (Bacitracin -) 1 applic TP DAILY [facility] Dextrose (D50w (Vial) -) 25 gm IVPUSH PRN PRN PRN Reason: HYPOGLYCEMIA Ceftriaxone Sodium 2 gm/ (Dextrose) 100 mls @ 200 mls/hr IVPB DAILY [facility]; Protocol Pantoprazole Sodium 80 mg/ (Sodium Chloride) 100 mls @ 10 mls/hr IVPB Q10H [facility] Dextrose/Sodium Chloride (D5-Ns -) 1,000 mls @ 150 mls/hr IV ASDIR [facility] Sodium Chloride (Normal Saline -) 1,000 mls @ 1,000 mls/hr IV ASDIR [facility] Stop: 06/19/18 11:24 Metoclopramide HCl (Reglan Injection -) 5 mg IVPUSH ACHS [facility] Last Admin: 06/19/18 06:46 Dose: 5 mg Non-Formulary Medication (Patient's Own Med) 2 each PO BID [facility] Last Admin: 06/18/18 22:07 Dose: Not Given - Objective Vital Signs: Vital Signs Temperature 97.8 F 06/19/18 06:00 Pulse Rate 94 H 06/19/18 09:50 Respiratory Rate 18 06/19/18 09:50 Blood Pressure 74/57 L 06/19/18 09:50 O2 Sat by Pulse Oximetry (%) 100 06/19/18 09:00 Constitutional: Yes: Cachectic Cardiovascular: Yes: Regular Rate and Rhythm, S1, S2 Respiratory: Yes: Diminished Gastrointestinal: Yes: Normal Bowel Sounds, Soft, Other (BLOODY DRAINAGE ON DRESSING). No: Tenderness Edema: No Labs: CBC, BMP 06/19/18 06:00 06/19/18 06:00 INR, PTT INR 1.57 (0.83-1.09) H 06/19/18 09:30 Assessment/Plan S/P PEG COMPLICATED BY BLEEDING AT SITE HYPOTENSION/ THROMBOCYTOPENIA R/O SEPSIS R/O ASP PNEUMONIA METASTATIC CA CACHEXIA DISCONTINUE CEFTRIAXONE BC X [address] ABDOMEN [facility] [employer] ZOSYN +VANCOMYCIN X 1
[2018-06-19 11:14] LABS: ARTERIAL BLD GAS O2 SATURATION 97.5 % (95-98); ARTERIAL BLOOD GAS BASE EXCESS -6.4 meq/l (-2-2); ARTERIAL BLOOD GAS PCO2 28.2 mmHg (35-45); ARTERIAL BLOOD GAS PO2 112 mmHg (80-105)
[2018-06-19 11:17] LABS: ALLENS TEST POSITIVE
[2018-06-19] MEDS: PANTOPRAZOLE SODIUM 80 MG in SODIUM CHLORIDE 100 ML IVPB SCH ×3 (11:28→22:00)
[2018-06-19] MEDS ORDERED: VANCOMYCIN 1 GRAM (PRE-DOCKED) 1,000 MG/250 ML BAG IVPB ONE (11:30)
[2018-06-19] MEDS ORDERED: DEXTROSE 5%-WATER - 50 ML IVPB ONE ×3 (11:31→21:05)
[2018-06-19] MEDS ORDERED: PIPERACILLIN/TAZOBACTAM 3.375 GM VIAL IVPB ONE ×3 (11:31→21:05)
[2018-06-19] MEDS: BACITRACIN 15 GM TUBE TOPICAL OINTMENT TP SCH (11:35)
[2018-06-19] MEDS: PIPERACILLIN/TAZOB 3.375 GM 3.375 GM in DEXTROSE 5%-WATER - 50 ML IVPB SCH ×2 (11:39→18:06)
--- NOTE | 2018-06-19 12:07 | PN ---
Teaching Attending Note Name of Resident: Mattehw Hall ATTENDING PHYSICIAN STATEMENT I saw and evaluated the patient. I reviewed the resident's note and discussed the case with the resident. I agree with the resident's findings and plan as documented. SUBJECTIVE: Pt seen and examined in the ICU. Transferred down for bleeding from PEG site, hypotension and respiratory distress. OBJECTIVE: Vital Signs Period Temp Pulse Resp BP Sys/Bermudez Pulse Ox Last 24 Hr 97.0 F-98.7 F 89-102 18-20 69-125/43-72 93-100 Intake & Output 06/16/18 06/17/18 06/18/18 06/19/18 23:59 23:59 23:59 23:59 Intake Total 7325 617 8351 470 Balance 9107 377 7159 470 Gen: tachypneic, lethargic but arousable Heart: RRR Lung: scattered rhonchi Abd: soft, +PEG with fresh blood Ext: no edema CBC, BMP 06/19/18 06:00 06/19/18 06:00 Active Medications Acetylcysteine (Mucomyst 20 Oral / Inh Use Only*) 400 mg NEB RBID [facility] Last Admin: 06/19/18 08:05 Dose: 400 mg Albuterol Sulfate (Ventolin 0.083% Nebulizer Soln -) 1 amp NEB RQID [facility] Last Admin: 06/19/18 11:43 Dose: 1 amp Bacitracin (Bacitracin -) 1 applic TP DAILY [facility] Last Admin: 06/19/18 11:35 Dose: 1 applic Dextrose (D50w (Vial) -) 25 gm IVPUSH PRN PRN PRN Reason: HYPOGLYCEMIA Pantoprazole Sodium 80 mg/ (Sodium Chloride) 100 mls @ 10 mls/hr IVPB Q10H [facility] Last Admin: 06/19/18 11:28 Dose: 10 mls/hr Dextrose/Sodium Chloride (D5-Ns -) 1,000 mls @ 150 mls/hr IV ASDIR [facility] Last Admin: 06/19/18 10:00 Dose: 150 mls/hr Piperacillin Sod/Tazobactam (Sod 3.375 gm/ Dextrose) 50 mls @ 100 mls/hr IVPB Q8H-IV [facility]; Protocol Last Admin: 06/19/18 11:39 Dose: 100 mls/hr Vancomycin HCl (Vancomycin (Pre-Docked)) 1,000 mg in 250 mls @ 166.667 mls/hr IVPB ONCE ONE; Protocol Stop: 06/19/18 12:59 Last Admin: 06/19/18 11:39 Dose: 166.667 mls/hr Metoclopramide HCl (Reglan Injection -) 5 mg IVPUSH ACHS [facility] Last Admin: 06/19/18 11:33 Dose: 5 mg Non-Formulary Medication (Patient's Own Med) 2 each PO BID [facility] Last Admin: 06/19/18 11:37 Dose: Not Given ASSESSMENT AND PLAN: Acute Blood Loss Anemia Thrombocytopenia s/p Recent PEG Hypovolemic Shock +Troponins likely Demand Ischemia Acute on Chronic Diastolic Heart Failure Acute Kidney Injury Hyponatremia HTN DM Hyperlipidemia h/o CVA Metastatic Prostate Ca - transfuse PRBC stat - monitor H/H - CT A/P stat - protonix for now - IVF boluses - may need intubation and central line placement - ICU monitoring critical care time spent in revieiwng chart, evaluating patient and formulating plan 35 min
--- NOTE | 2018-06-19 12:10 | CONSULT ---
Consult Consult Specialty:: Pulm/CCM Referred by:: Dr. Chong Reason for Consultation:: GI bleed with hypotension and AMS - History of Present Illness History of Present Illness: 73 yo M h/o NIDDM, HLD, HTN, 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: CVA Cardio/Vascular: Yes: HTN, Hyperlipdemia Endocrine: Yes: Diabetes Mellitus - Alcohol/Substance Use Hx Alcohol Use: No - Smoking History Smoking history: Unknown if ever smoked Have you smoked in the past 12 months: No If you are a former smoker, when did you quit?: 2008 - Social History History of Recent Travel: No Home Medications - Allergies Allergies/Adverse Reactions: Allergies Allergy/AdvReac Type Severity Reaction Status Date / Time No Known Allergies Allergy Verified 11/28/16 11:31 - Home Medications Home Medications: Ambulatory Orders Amlodipine Besylate 10 mg PO DAILY 11/28/16 Aspirin [ASA -] 81 mg PO DAILY 11/28/16 Atorvastatin Ca [Lipitor] 40 mg PO HS 11/28/16 Bicalutamide 50 mg PO DAILY 05/31/17 Albuterol 0.083% Nebulizer Fanny [Ventolin 0.083% Nebulizer Soln -] 1 neb NEB Q6H PRN 06/09/18 Docusate Sodium [Colace] 100 mg PO DAILY 06/09/18 Dronabinol 2.5 mg PO DAILY 06/09/18 Enzalutamide [Xtandi] 160 mg PO DAILY 06/09/18 Folic Acid 1 mg PO DAILY 06/09/18 Mirtazapine [Remeron -] 15 mg PO DAILY 06/09/18 Vitamin B Complex 1 each PO DAILY 06/09/18 Physical Exam Vital Signs: Vital Signs Temperature 97.8 F 06/19/18 06:00 Pulse Rate 94 H 06/19/18 09:50 Respiratory Rate 18 06/19/18 09:50 Blood Pressure 74/57 L 06/19/18 09:50 O2 Sat by Pulse Oximetry (%) 100 06/19/18 09:00 Constitutional: Yes: Moderate Distress Cardiovascular: Yes: Regular Rate and Rhythm, S1, S2 Respiratory: Yes: Mechanically Ventilated Gastrointestinal: Yes: Hypoactive Bowel Sounds, Other (G tube) Edema: No Neurological: Yes: Alert, Oriented Labs: CBC, BMP 06/19/18 06:00 06/19/18 06:00 Assessment/Plan 73 yo M h/o NIDDM, HLD, HTN, 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 pulm: acute respiratory failure - likely due to hypovolemic shock from GI bleed - intubated and sedated gi: acute GI bleed, recent peg - stat CT abd - start protonix gtt cv: hld, htn, demand ischemia - trend trop - hold bp meds heme: acute anemia from gi bleed, metastatic prostate CA, thrombocytopenia - transfuse 2 PRBC - trend cbc renal: ginger, hyponatremia - prerenal from hypoperfusion - cont. receiving prbc and fluids - trend Cr and Na+ neuro: sedated, h/o CVA - sedation vocation daily FEN - cont. prbc and fluids - npo Prophylaxis - DVT: scd - GI: on protonix gtt Matthew Hall MD Visit type - Emergency Visit Emergency Visit: No - New Patient This patient is new to me today: Yes Date on this admission: 06/19/18 - Critical Care Critical Care patient: Yes Total Critical Care Time (in minutes): 35 Critical Care Statement: The care of this patient involved high complexity decision making to prevent further life threatening deterioration of the patient 's condition and/or to evaluate & treat vital organ system(s) failure or risk of failure.
[2018-06-19] MEDS ORDERED: RAPID SEQUENCE INTUBATION KIT NR ONE (12:15)
[2018-06-19] MEDS ORDERED: VASOPRESSIN 20 UNITS/ML VIAL IV ONE ×2 (12:17→19:25)
--- NOTE | 2018-06-19 13:49 | PROC ---
Intubation - Intubation Reason for Intubation: Respiratory Insufficiency Time of Intubation: 12:30 Intubation Method: orotracheal Blade used: Mac (4) Tube Size (cm): 8.0 Tube position @ lip (cm): 23 Tube position confirmed by: Direct visualization, CO2 detector, Chest x-ray Breath Sounds after Intubation: equal Post Intubation Xray: Yes
[2018-06-19] MEDS ORDERED: fentaNYL CITRATE 250 MCG/5 ML VIAL ONE (14:33)
[2018-06-19] MEDS ORDERED: MIDAZOLAM 100 MG/100 ML MG IVPB ONE (14:34)
[2018-06-19] MEDS ORDERED: FENTANYL INJECTION 500 MCG in DEXTROSE 5%-WATER - 90 ML IVPB SCH (15:45)
[2018-06-19] MEDS: MIDAZOLAM 100 MG in SODIUM CHLORIDE 100 ML IVPB SCH (15:58)
[2018-06-19] MEDS ORDERED: PHYTONADIONE 10 MG/1 ML AMP IVPB ONE (19:05)
[2018-06-19] MEDS ORDERED: PHYTONADIONE 10 MG/1 ML AMP ONE (21:13)
[2018-06-19 21:21] LABS: BASO % 0.3 % (0-2.0); EOS % 0.4 % (0-4.5); HEMATOCRIT 18.2 % (35.4-49); LYMPH % 3.1 % (8-40); MCH 28.5 pg (25.7-33.7); MCHC 33.6 g/dl (32.0-35.9); MEAN CELL VOLUME 84.7 fl (80-96); MEAN PLT VOLUME 7.8 fl (7.5-11.1); NEUT % 91.2 % (42.8-82.8); PLATELET COUNT 45 K/MM3 (134-434); RBC 2.14 M/mm3 (4.00-5.60); RDW 16.9 % (11.9-15.9); WHITE BLOOD COUNT 7.5 K/mm3 (4.0-10.0)
[2018-06-19 21:32] LABS: HEMOGLOBIN 6.1 GM/dL (11.7-16.9)
[2018-06-19] MEDS ORDERED: NOREPINEPHRINE BITARTRATE 4 MG/4 ML ML IV ONE (22:33)
[2018-06-19 22:51] LABS: PLATELET ESTIMATE DECREASED
[2018-06-20] MEDS: PIPERACILLIN/TAZOB 3.375 GM 3.375 GM in DEXTROSE 5%-WATER - 50 ML IVPB SCH ×3 (02:17→17:20)
[2018-06-20] MEDS: VASOPRESSIN 50 UNITS in SODIUM CHLORIDE 97.5 ML IVPB SCH (03:00)
[2018-06-20] MEDS ORDERED: VASOPRESSIN 20 UNITS/ML VIAL IV ONE ×2 (03:21→14:34)
[2018-06-20 05:55] LABS: ARTERIAL BLD GAS O2 SATURATION 98.1 % (95-98); ARTERIAL BLOOD GAS BASE EXCESS -7.8 meq/l (-2-2); ARTERIAL BLOOD GAS PCO2 28.3 mmHg (35-45); ARTERIAL BLOOD GAS PO2 114 mmHg (80-105); ARTERIAL BLOOD GAS pH 7.37 (7.35-7.45)
[2018-06-20 06:13] LABS: ALLENS TEST POSITIVE
[2018-06-20] MEDS: METOCLOPRAMIDE HCL INJECTION 10 MG/2 ML VIAL IVPUSH SCH ×4 (06:50→22:17)
[2018-06-20 06:53] LABS: BASO % 0.4 % (0-2.0); EOS % 0.3 % (0-4.5); HEMATOCRIT 26.3 % (35.4-49); HEMOGLOBIN 9.1 GM/dL (11.7-16.9); LYMPH % 1.7 % (8-40); MCH 28.6 pg (25.7-33.7); MCHC 34.4 g/dl (32.0-35.9); MEAN PLT VOLUME 8.1 fl (7.5-11.1); MONO % 5.9 % (3.8-10.2); NEUT % 91.7 % (42.8-82.8); RBC 3.17 M/mm3 (4.00-5.60); RDW 16.7 % (11.9-15.9); WHITE BLOOD COUNT 8.8 K/mm3 (4.0-10.0)
[2018-06-20 07:04] LABS: INR 1.5 (0.83-1.09); PROTHROMBIN TIME (PATIENT) 17.8 SEC (9.7-13.0)
[2018-06-20 07:20] LABS: BILIRUBIN,TOTAL 2.3 mg/dL (0.2-1); CALCIUM 7.6 mg/dL (8.5-10.1); PHOSPHOROUS 3.9 mg/dL (2.5-4.9); POTASSIUM 3.5 mmol/L (3.5-5.1); TOT PROT 4.6 g/dl (6.4-8.2)
[2018-06-20] MEDS: ALBUTEROL SO4 0.083% IH SOL 2.5 MG/3 ML VIAL.NEB. NEB SCH ×4 (08:02→20:11)
[2018-06-20] MEDS: ACETYLCYSTEINE 20% 200MG/ML 4 ML VIAL *FOR ORAL / INH USE ONLY NEB SCH ×2 (08:02→20:11)
--- NOTE | 2018-06-20 08:20 | PN.GI ---
GI Progress Note Subjective: Patient examined in ICU, mechanically ventilated. Bleeding G tube has subsided only mild amount of blood noted to gauze covering G-tube stoma. Patient Hg 7.2 yesterday and received 2U PRBC and 2U FFP transfused with repeat Hg 6.1. After repeat Hg showed downtrend patient received another 2U PRBC transfusion, currently pending repeat Hg result for this morning. Lab results from 06/19 8pm shows Plt 45, AST 693, ALT 90, Alk 322. Melena noted in diaper, stool OB ordered. - Objective Vital Signs: Vital Signs Temperature 97.4 F L 06/20/18 06:00 Pulse Rate 77 06/20/18 07:00 Respiratory Rate 14 06/20/18 07:00 Blood Pressure 94/65 06/20/18 07:00 O2 Sat by Pulse Oximetry (%) 97 06/19/18 20:33 Constitutional: Mild Distress Cardiovascular: Yes: Regular Rate and Rhythm Respiratory: Yes: Mechanically Ventilated, Rhonchi Gastrointestinal Inspection: Yes: WNL, Other (G tube). No: Ascites, Distention , Hernia, Scars ...Auscultate: Yes: Hypoactive Bowel Sounds ...Palpate: Yes: Soft. No: Firm/Rigid, Guarding, Hepatomegaly, Mass, Pulsatile Mass, Splenomegaly, Tenderness, Tenderness, Epigastium, Tenderness, Rebound, Other ...Percussion: Yes: Tympanitic. No: Dullness, Fluid Wave, Other Neurological: Yes: Other (sedation) Labs: CBC, BMP 06/20/18 05:30 INR, PTT INR 1.50 (0.83-1.09) H 06/20/18 05:30 Problem List - Problems (1) Anemia Assessment/Plan: >monitor Hg daily >transfuse for Hg <8.0 >on 06/19/18 8pm Hg 6.1 received total 4U PRBC and 2U FFP pending repeat Hg >stool OB Bleeding from the incision site of the PEG because of coagulopathy from malnutrition R> observe for further bleeding Code(s): D64.9 - ANEMIA, UNSPECIFIED (2) Neoplasm of uncertain behavior of liver Assessment/Plan: >most likely secondary to metastatic lesion from prostate >Abdominal and Pelvic CT scan results reviewed > AFP 3.6, CEA 73, CA 19-9 2021, PSA 46 >oncology consult >dietary consult Code(s): D37.6 - NEOPLASM OF UNCERTAIN BEHAVIOR OF LIVER, GB & BILE DUCT (3) Gastrointestinal tube present Assessment/Plan: >PT/INR ordered >keep abdominal binder open for 4hrs to re-assess site >increase feeds to 30cc/hr Code(s): Z93.1 - GASTROSTOMY STATUS (4) Thrombocytopenia Assessment/Plan: r/o DIC R> consider Fibrinogen level Hematology consult Code(s): D69.6 - THROMBOCYTOPENIA, UNSPECIFIED
[2018-06-20] MEDS ORDERED: PIPERACILLIN/TAZOBACTAM 3.375 GM VIAL IVPB ONE ×3 (08:21→22:03)
[2018-06-20] MEDS ORDERED: DEXTROSE 5%-WATER - 50 ML IVPB ONE ×3 (08:22→22:04)
[2018-06-20] MEDS ORDERED: PT OWN MED DRAWER 7, Y5N ONE ×2 (08:39→18:56)
[2018-06-20] MEDS: PANTOPRAZOLE SODIUM 80 MG in SODIUM CHLORIDE 100 ML IVPB SCH ×3 (08:48→17:20)
[2018-06-20] MEDS: BACITRACIN 15 GM TUBE TOPICAL OINTMENT TP SCH (09:01)
[2018-06-20] MEDS: DEXTROSE 5%-NORMAL SALINE 1,000 ML IV SCH (09:01)
[2018-06-20 09:14] LABS: PLATELET COUNT 36 K/MM3 (134-434)
[2018-06-20 09:40] LABS: ACTIVATED PTT 104.7 SECONDS (25.2-36.5)
--- NOTE | 2018-06-20 10:31 | PN ---
Progress Note, Physician History of Present Illness: UNRESPONSIVE ON VENTILATOR HYPOTENSION ON PRESSORS AFEBRILE, WBC WNL PLT COUNT DROPPING 36k CR INCREASED 2.O - Current Medication List Current Medications: Active Medications Acetylcysteine (Mucomyst 20 Oral / Inh Use Only*) 400 mg NEB RBID [facility] Last Admin: 06/20/18 08:02 Dose: 400 mg Albuterol Sulfate (Ventolin 0.083% Nebulizer Soln -) 1 amp NEB RQID [facility] Last Admin: 06/20/18 08:02 Dose: 1 amp Bacitracin (Bacitracin -) 1 applic TP DAILY [facility] Last Admin: 06/20/18 09:01 Dose: 1 applic Dextrose (D50w (Vial) -) 25 gm IVPUSH PRN PRN PRN Reason: HYPOGLYCEMIA Pantoprazole Sodium 80 mg/ (Sodium Chloride) 100 mls @ 10 mls/hr IVPB Q10H [facility] Last Admin: 06/20/18 08:48 Dose: 10 mls/hr Dextrose/Sodium Chloride (D5-Ns -) 1,000 mls @ 150 mls/hr IV ASDIR [facility] Last Admin: 06/20/18 09:01 Dose: 150 mls/hr Piperacillin Sod/Tazobactam (Sod 3.375 gm/ Dextrose) 50 mls @ 100 mls/hr IVPB Q8H-IV [facility]; Protocol Last Admin: 06/20/18 09:01 Dose: 100 mls/hr Fentanyl 500 mcg/ Dextrose 100 mls @ 5.35 mls/hr IVPB TITR [facility]; Protocol Last Admin: 06/19/18 21:16 Dose: Not Given Midazolam HCl 100 mg/ Sodium (Chloride) 100 mls @ 1 mls/hr IVPB TITR [facility]; Protocol Last Titration: 06/20/18 09:04 Dose: 1 mg/hr, 1 mls/hr Vasopressin 50 units/ Sodium (Chloride) 100 mls @ 4 mls/hr IVPB ASDIR [facility]; Protocol Last Titration: 06/20/18 07:00 Dose: 12 units/hr, 24 mls/hr Insulin Aspart (Novolog Vial Sliding Scale -) 1 vial SQ ACHS [facility]; Protocol Metoclopramide HCl (Reglan Injection -) 5 mg IVPUSH ACHS [facility] Last Admin: 06/20/18 06:50 Dose: 5 mg Non-Formulary Medication (Patient's Own Med) 2 each PO BID [facility] Last Admin: 06/20/18 09:02 Dose: Not Given - Objective Vital Signs: Vital Signs Temperature 97.4 F L 06/20/18 06:00 Pulse Rate 74 06/20/18 10:19 Respiratory Rate 15 06/20/18 10:19 Blood Pressure 99/63 06/20/18 10:19 O2 Sat by Pulse Oximetry (%) 100 06/20/18 10:00 Constitutional: Yes: No Distress, Cachectic Cardiovascular: Yes: Regular Rate and Rhythm, S1, S2 Respiratory: Yes: Mechanically Ventilated Gastrointestinal: Yes: Normal Bowel Sounds, Soft, Other (NO BLEEDING AT PEG NOTED). No: Tenderness Labs: CBC, BMP 06/20/18 05:30 06/20/18 05:30 INR, PTT INR 1.50 (0.83-1.09) H 06/20/18 05:30 Fibrinogen 365.0 mg/dL (238-498) 06/20/18 05:30 Assessment/Plan S/P PEG COMPLICATED BY BLEEDING AT SITE HYPOTENSION/ THROMBOCYTOPENIA R/O SEPSIS R/O ASP PNEUMONIA THROMBOCYTOSPENIA METASTATIC CA [employer] ANTIMICROBIAL C[employer]AGE ZOSYN +VANCOMYCIN X 1 PENDING C/S
[2018-06-20] MEDS: INSULIN SLIDING SCALE (NOVOLOG) 1 VIAL SQ SCH ×3 (11:14→22:16)
[2018-06-20 11:34] LABS: ANISOCYTOSIS 1+; MACROCYTOSIS 1+; OVALOCYTE 1+; PLATELET ESTIMATE DECREASED; TARGET CELLS 1+
--- NOTE | 2018-06-20 11:38 | PN ---
Progress Note, Physician Chief Complaint: patient seen and examiend no more bleeding noted from g tube site s/p 4 units PRBC h/h improved from 6 to 9 range - Current Medication List Current Medications: Active Medications Acetylcysteine (Mucomyst 20 Oral / Inh Use Only*) 400 mg NEB RBID WILMER Last Admin: 06/20/18 08:02 Dose: 400 mg Albuterol Sulfate (Ventolin 0.083% Nebulizer Soln -) 1 amp NEB RQID [facility]ILMER Last Admin: 06/20/18 08:02 Dose: 1 amp Bacitracin (Bacitracin -) 1 applic TP DAILY [facility] Last Admin: 06/20/18 09:01 Dose: 1 applic Dextrose (D50w (Vial) -) 25 gm IVPUSH PRN PRN PRN Reason: HYPOGLYCEMIA Pantoprazole Sodium 80 mg/ (Sodium Chloride) 100 mls @ 10 mls/hr IVPB Q10H [facility] Last Admin: 06/20/18 08:48 Dose: 10 mls/hr Dextrose/Sodium Chloride (D5-Ns -) 1,000 mls @ 150 mls/hr IV ASDIR [facility]ILMER Last Admin: 06/20/18 09:01 Dose: 150 mls/hr Piperacillin Sod/Tazobactam (Sod 3.375 gm/ Dextrose) 50 mls @ 100 mls/hr IVPB Q8H-IV [facility]; Protocol Last Admin: 06/20/18 09:01 Dose: 100 mls/hr Fentanyl 500 mcg/ Dextrose 100 mls @ 5.35 mls/hr IVPB TITR [facility]; Protocol Last Admin: 06/19/18 21:16 Dose: Not Given Midazolam HCl 100 mg/ Sodium (Chloride) 100 mls @ 1 mls/hr IVPB TITR [facility]; Protocol Last Titration: 06/20/18 09:04 Dose: 1 mg/hr, 1 mls/hr Vasopressin 50 units/ Sodium (Chloride) 100 mls @ 4 mls/hr IVPB ASDIR [facility]; Protocol Last Titration: 06/20/18 07:00 Dose: 12 units/hr, 24 mls/hr Insulin Aspart (Novolog Vial Sliding Scale -) 1 vial SQ ACHS [facility]; Protocol Last Admin: 06/20/18 11:14 Dose: 4 units Metoclopramide HCl (Reglan Injection -) 5 mg IVPUSH ACHS [facility] Last Admin: 06/20/18 06:50 Dose: 5 mg Non-Formulary Medication (Patient's Own Med) 2 each PO BID [facility] Last Admin: 06/20/18 09:02 Dose: Not Given Phytonadione (Aqua Mephyton Injection -) 10 mg IVPB DAILY [facility] Stop: 06/23/18 10:01 - Objective Vital Signs: Vital Signs Temperature 97.5 F L 06/20/18 10:19 Pulse Rate 74 06/20/18 10:19 Respiratory Rate 14 06/20/18 11:28 Blood Pressure 99/63 06/20/18 10:19 O2 Sat by Pulse Oximetry (%) 100 06/20/18 10:00 Constitutional: Yes: Calm Cardiovascular: Yes: Regular Rate and Rhythm, S1, S2 Respiratory: Yes: Mechanically Ventilated Gastrointestinal: Yes: Soft, Other (g tube) Neurological: Yes: Other (sedated) Labs: CBC, BMP 06/20/18 05:30 06/20/18 05:30 INR, PTT INR 1.50 (0.83-1.09) H 06/20/18 05:30 Fibrinogen 365.0 mg/dL (238-498) 06/20/18 05:30 Problem List - Problems (1) Hypotension Assessment/Plan: on pressor inc the LFT and renal function could be secondary to hypotension ivf maintain MAP > 65 Code(s): I95.9 - HYPOTENSION, UNSPECIFIED (2) Failure to thrive Assessment/Plan: s/p peg tube placement became hypotensive and drop in h/h transferred to unit, s /p bleeding from the peg tube site PRBC ffp vitamin K Code(s): IFG8144 - (3) Anemia Assessment/Plan: s/p prbc and FFP got vitamin K heme reconsulted platelet dropped to 36 possible concern for DIC PPI drip elevated d dimer Code(s): D64.9 - ANEMIA, UNSPECIFIED (4) Syncope Assessment/Plan: intubated on pressors possible aspiration pna iv abx Code(s): R55 - SYNCOPE AND COLLAPSE (5) Liver mass Assessment/Plan: ct scan abdomen with contrast- multiple nodularites seen in liver- metastatic disease oncology n board to start new chemo medication end of this week l Code(s): R16.0 - HEPATOMEGALY, NOT ELSEWHERE CLASSIFIED
--- NOTE | 2018-06-20 12:07 | PN ---
Teaching Attending Note Name of Resident: Vickie Purcell ATTENDING PHYSICIAN STATEMENT I saw and evaluated the patient. I reviewed the resident's note and discussed the case with the resident. I agree with the resident's findings and plan as documented. SUBJECTIVE: Pt seen and examined in the ICU. Remains intubated, sedated. Dark tarry stools overnight. Required 4 units PRBC, 2 units FFP yesterday. Remains on vasopressin gtt. OBJECTIVE: Vital Signs Period Temp Pulse Resp BP Sys/Bermudez Pulse Ox Last 24 Hr 97.4 F-97.7 F 74-89 14-20 80-121/54-68 97-100 Intake & Output 06/17/18 06/18/18 06/19/18 06/20/18 23:59 23:59 23:59 23:59 Intake Total 700 1204 4184 2730 Output Total 100 Balance 700 1204 4184 2630 Weight 62.171 kg Gen: intubated, sedated Heart: RRR Lung: decreased breath sounds at the bases Abd: soft, nontender Ext: no edema CBC, BMP 06/20/18 05:30 06/20/18 05:30 Active Medications Acetylcysteine (Mucomyst 20 Oral / Inh Use Only*) 400 mg NEB RBID WILMER Last Admin: 06/20/18 08:02 Dose: 400 mg Albuterol Sulfate (Ventolin 0.083% Nebulizer Soln -) 1 amp NEB RQID [facility] Last Admin: 06/20/18 08:02 Dose: 1 amp Bacitracin (Bacitracin -) 1 applic TP DAILY [facility] Last Admin: 06/20/18 09:01 Dose: 1 applic Dextrose (D50w (Vial) -) 25 gm IVPUSH PRN PRN PRN Reason: HYPOGLYCEMIA Pantoprazole Sodium 80 mg/ (Sodium Chloride) 100 mls @ 10 mls/hr IVPB Q10H [facility] Last Admin: 06/20/18 08:48 Dose: 10 mls/hr Dextrose/Sodium Chloride (D5-Ns -) 1,000 mls @ 150 mls/hr IV ASDIR [facility]ILMER Last Admin: 06/20/18 09:01 Dose: 150 mls/hr Piperacillin Sod/Tazobactam (Sod 3.375 gm/ Dextrose) 50 mls @ 100 mls/hr IVPB Q8H-IV [facility]; Protocol Last Admin: 06/20/18 09:01 Dose: 100 mls/hr Midazolam HCl 100 mg/ Sodium (Chloride) 100 mls @ 1 mls/hr IVPB TITR [facility]; Protocol Last Titration: 06/20/18 09:04 Dose: 1 mg/hr, 1 mls/hr Vasopressin 50 units/ Sodium (Chloride) 100 mls @ 4 mls/hr IVPB ASDIR [facility]; Protocol Last Titration: 06/20/18 07:00 Dose: 12 units/hr, 24 mls/hr Insulin Aspart (Novolog Vial Sliding Scale -) 1 vial SQ ACHS [facility]; Protocol Last Admin: 06/20/18 11:14 Dose: 4 units Metoclopramide HCl (Reglan Injection -) 5 mg IVPUSH ACHS [facility] Last Admin: 06/20/18 11:58 Dose: 5 mg Non-Formulary Medication (Patient's Own Med) 2 each PO BID [facility] Last Admin: 06/20/18 09:02 Dose: Not Given Phytonadione (Aqua Mephyton Injection -) 10 mg IVPB DAILY [facility] Stop: 06/23/18 10:01 ASSESSMENT AND PLAN: Acute Blood Loss Anemia Thrombocytopenia s/p Recent PEG Hypovolemic Shock +Troponins likely Demand Ischemia Acute on Chronic Diastolic Heart Failure Acute Kidney Injury Hyponatremia HTN DM Hyperlipidemia h/o CVA Metastatic Prostate Ca - monitor H/H, coags - transfuse as needed - place central line - check CVP - IVF boluses to keep CVP 8-12 - titrate pressors to maintain MAP >65 - continue protonix - NPO - when hemodynamically stable, lighten sedation to assess mental status - spontaneous breathing trials as tolerated when mental status improved - continue ICU monitoring critical care time spent in revieiwng chart, evaluating patient and formulating plan 35 min
[2018-06-20 13:58] LABS: BILIRUBIN,DIRECT 1.8 mg/dL (0.0-0.2)
--- NOTE | 2018-06-20 14:59 | PROC ---
Central Line Insertion Indication: Vasopressor Risks and Benefits Explained: No (emergent situation) Consent on Chart: No (emergent situation) Central Line: Triple Lumen Catheter Anesthesia: 1% Lidocaine Sterile Technique: Yes Ultrasound Guided Assistance: Yes Position: Left Internal Jugular Post Insertion: Yes: Bilateral Chest Expansion, Chest X-Ray Ordered Sterile Dressing Applied: Yes
[2018-06-20 15:20] VITALS: BMI 19.1
--- NOTE | 2018-06-20 16:07 | PN ---
Physical Exam: SUBJECTIVE: Patient seen and examined at bedside this morning. No acute events overnight. Patient remains intubated and sedated. OBJECTIVE: Vital Signs Temperature 97.4 F L 06/20/18 13:08 Pulse Rate 88 06/20/18 14:44 Respiratory Rate 24 H 06/20/18 14:44 Blood Pressure 115/63 06/20/18 14:44 O2 Sat by Pulse Oximetry (%) 100 06/20/18 10:00 GENERAL: The patient is intubated and sedated. HEAD: Normal with no signs of trauma. EYES: PERRLA, EOMI, sclera anicteric, conjunctiva clear. ENT: moist mucous membranes. NECK: Trachea midline, full range of motion, supple. LUNGS: Breath sounds equal, clear to auscultation bilaterally. HEART: Regular rate and rhythm, S1, S2 without murmur, rub or gallop. ABDOMEN: Soft, nontender, nondistended, hypoactive bowel sounds, PEG tube in place, minimal bleeding noted EXTREMITIES: 2+ pulses, warm, well-perfused, +1 bilateral LE pitting edema SKIN: Warm, dry, normal turgor, no rashes or lesions noted Laboratory Results - last 24 hr 06/17/18 06/19/18 06/19/18 09:50 20:00 20:00 WBC 7.5 RBC 2.14 L Hgb 6.1 L* Hct 18.2 L D MCV 84.7 MCH 28.5 MCHC 33.6 RDW 16.9 H Plt Count 45 L D MPV 7.8 Absolute Neuts (auto) 6.9 Neutrophils % 91.2 H Neutrophils % (Manual) 91.0 H Band Neutrophils % 1.0 Lymphocytes % 3.1 L D Lymphocytes % (Manual) 7.0 L D Monocytes % 5.0 Monocytes % (Manual) 0 L D Eosinophils % 0.4 D Eosinophils % (Manual) 0.0 Basophils % 0.3 Basophils % (Manual) 0.0 Myelocytes % (Man) Promyelocytes % (Man) Blast Cells % (Manual) Nucleated RBC % 0 Metamyelocytes 1 D Hypochromia Platelet Estimate Decreased Platelet Comment No clumping noted Polychromasia Poikilocytosis Anisocytosis Microcytosis Macrocytosis Target Cells Ovalocytes PT with INR INR PTT (Actin FS) Fibrinogen D-Dimer Puncture Site ABG pH ABG pCO2 at Pt Temp ABG pO2 at Pt Temp ABG HCO3 ABG O2 Sat (Measured) ABG O2 Content ABG Base Excess Jose Test O2 Delivery Device Oxygen Flow Rate Vent Mode Vent Rate PEEP Pressure Support Vent Sodium Potassium Chloride Carbon Dioxide Anion Gap BUN Creatinine Est GFR (CKD-EPI)AfAm Est GFR (CKD-EPI)NonAf POC Glucometer Random Glucose Hemoglobin A1c % Calcium Phosphorus Magnesium Total Bilirubin Direct Bilirubin AST ALT Alkaline Phosphatase Troponin I 0.09 H Total Protein Albumin Blood Type O POSITIVE Antibody Screen Negative Crossmatch See Detail 06/20/18 06/20/18 06/20/18 05:30 05:30 05:30 WBC 8.8 RBC 3.17 L Hgb 9.1 L Hct 26.3 L D MCV 83.0 MCH 28.6 MCHC 34.4 RDW 16.7 H Plt Count 36 L* MPV 8.1 Absolute Neuts (auto) 8.1 H Neutrophils % 91.7 H Neutrophils % (Manual) 94.0 H Band Neutrophils % 1.0 Lymphocytes % 1.7 L D Lymphocytes % (Manual) 2.0 L D Monocytes % 5.9 Monocytes % (Manual) 3 L D Eosinophils % 0.3 Eosinophils % (Manual) 0.0 Basophils % 0.4 Basophils % (Manual) 0.0 Myelocytes % (Man) 0 Promyelocytes % (Man) 0 Blast Cells % (Manual) 0 Nucleated RBC % 0 Metamyelocytes 0 D Hypochromia 0 Platelet Estimate Decreased Platelet Comment Polychromasia 0 Poikilocytosis 2+ Anisocytosis 1+ Microcytosis 1+ Macrocytosis 1+ Target Cells 1+ Ovalocytes 1+ PT with INR 17.80 H INR 1.50 H PTT (Actin FS) 104.7 H Fibrinogen D-Dimer Puncture Site ABG pH ABG pCO2 at Pt Temp ABG pO2 at Pt Temp ABG HCO3 ABG O2 Sat (Measured) ABG O2 Content ABG Base Excess Jose Test O2 Delivery Device Oxygen Flow Rate Vent Mode Vent Rate PEEP Pressure Support Vent Sodium 129 L Potassium 3.5 Chloride 101 Carbon Dioxide 16 L Anion Gap 12 BUN 33 H Creatinine 2.0 H Est GFR (CKD-EPI)AfAm 37.01 Est GFR (CKD-EPI)NonAf 31.93 POC Glucometer Random Glucose 228 H Hemoglobin A1c % Calcium 7.6 L Phosphorus 3.9 Magnesium 2.0 Total Bilirubin 2.3 H Direct Bilirubin 1.8 H AST 875 H ALT 89 H Alkaline Phosphatase 314 H Troponin I Total Protein 4.6 L Albumin 1.0 L Blood Type Antibody Screen Crossmatch 06/20/18 06/20/18 06/20/18 05:30 05:30 06:00 WBC RBC Hgb Hct MCV MCH MCHC RDW Plt Count MPV Absolute Neuts (auto) Neutrophils % Neutrophils % (Manual) Band Neutrophils % Lymphocytes % Lymphocytes % (Manual) Monocytes % Monocytes % (Manual) Eosinophils % Eosinophils % (Manual) Basophils % Basophils % (Manual) Myelocytes % (Man) Promyelocytes % (Man) Blast Cells % (Manual) Nucleated RBC % Metamyelocytes Hypochromia Platelet Estimate Platelet Comment Polychromasia Poikilocytosis Anisocytosis Microcytosis Macrocytosis Target Cells Ovalocytes PT with INR INR PTT (Actin FS) Fibrinogen 365.0 D-Dimer 4757 H Puncture Site Left radial ABG pH 7.37 ABG pCO2 at Pt Temp 28.3 L ABG pO2 at Pt Temp 114 H ABG HCO3 15.9 L ABG O2 Sat (Measured) 98.1 H ABG O2 Content 15.6 ABG Base Excess -7.8 L Jose Test Positive O2 Delivery Device Vent Oxygen Flow Rate 40% Vent Mode A/c Vent Rate 14 PEEP 5.0 Pressure Support Vent 500 Sodium Potassium Chloride Carbon Dioxide Anion Gap BUN Creatinine Est GFR (CKD-EPI)AfAm Est GFR (CKD-EPI)NonAf POC Glucometer Random Glucose Hemoglobin A1c % 6.0 Calcium Phosphorus Magnesium Total Bilirubin Direct Bilirubin AST ALT Alkaline Phosphatase Troponin I Total Protein Albumin Blood Type Antibody Screen Crossmatch 06/20/18 11:13 WBC RBC Hgb Hct MCV MCH MCHC RDW Plt Count MPV Absolute Neuts (auto) Neutrophils % Neutrophils % (Manual) Band Neutrophils % Lymphocytes % Lymphocytes % (Manual) Monocytes % Monocytes % (Manual) Eosinophils % Eosinophils % (Manual) Basophils % Basophils % (Manual) Myelocytes % (Man) Promyelocytes % (Man) Blast Cells % (Manual) Nucleated RBC % Metamyelocytes Hypochromia Platelet Estimate Platelet Comment Polychromasia Poikilocytosis Anisocytosis Microcytosis Macrocytosis Target Cells Ovalocytes PT with INR INR PTT (Actin FS) Fibrinogen D-Dimer Puncture Site ABG pH ABG pCO2 at Pt Temp ABG pO2 at Pt Temp ABG HCO3 ABG O2 Sat (Measured) ABG O2 Content ABG Base Excess Jose Test O2 Delivery Device Oxygen Flow Rate Vent Mode Vent Rate PEEP Pressure Support Vent Sodium Potassium Chloride Carbon Dioxide Anion Gap BUN Creatinine Est GFR (CKD-EPI)AfAm Est GFR (CKD-EPI)NonAf POC Glucometer 220 Random Glucose Hemoglobin A1c % Calcium Phosphorus Magnesium Total Bilirubin Direct Bilirubin AST ALT Alkaline Phosphatase Troponin I Total Protein Albumin Blood Type Antibody Screen Crossmatch Active Medications Generic Name Dose Route Start Last Admin Trade Name Freq PRN Reason Stop Dose Admin Acetylcysteine 400 mg 06/18/18 20:00 06/20/18 08:02 Mucomyst 20 Oral / Inh Use Only* NEB 400 mg RBID WILMER Administration Albuterol Sulfate 1 amp 06/18/18 16:00 06/20/18 11:30 Ventolin 0.083% Nebulizer Soln - NEB 1 amp RQID WILMER Administration Bacitracin 1 applic 06/19/18 10:00 06/20/18 09:01 Bacitracin - TP 1 applic DAILY [facility] Administration Dextrose 25 gm 06/18/18 15:37 D50w (Vial) - IVPUSH PRN PRN HYPOGLYCEMIA Pantoprazole Sodium 80 mg/ 100 mls @ 10 mls/hr 06/19/18 08:30 06/20/18 08:48 Sodium Chloride IVPB 10 mls/hr Q10H [facility] Administration 8 MG/HR Dextrose/Sodium Chloride 1,000 mls @ 150 mls/hr 06/19/18 09:15 06/20/18 09:01 D5-Ns - IV 150 mls/hr ASDIR [facility] Administration Piperacillin Sod/Tazobactam 50 mls @ 100 mls/hr 06/19/18 11:30 06/20/18 09:01 Sod 3.375 gm/ Dextrose IVPB 100 mls/hr Q8H-IV [facility] Administration Protocol Midazolam HCl 100 mg/ Sodium 100 mls @ 1 mls/hr 06/19/18 15:45 06/20/18 09:04 Chloride IVPB 1 mg/hr TITR [facility] 1 mls/hr Titration Protocol 1 MG/HR Vasopressin 50 units/ Sodium 100 mls @ 4 mls/hr 06/20/18 03:15 06/20/18 07:00 Chloride IVPB 12 units/hr ASDIR WILMER 24 mls/hr Titration Protocol 2 UNITS/HR Insulin Aspart 1 vial 06/20/18 11:00 06/20/18 11:14 Novolog Vial Sliding Scale - SQ 4 units ACHS [facility] Administration Protocol Metoclopramide HCl 5 mg 06/18/18 16:30 06/20/18 11:58 Reglan Injection - IVPUSH 5 mg ACHS [facility] Administration Non-Formulary Medication 2 each 06/18/18 22:00 06/20/18 09:02 Patient's Own Med PO Not Given BID [facility] Phytonadione 10 mg 06/21/18 10:00 Aqua Mephyton Injection - IVPB 06/23/18 10:01 DAILY [facility] ASSESSMENT/PLAN: Patient is a 73 yo M h/o NIDDM, HLD, HTN, 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 #Neuro -Intubated and sedated -On versed -Daily sedation holiday to assess mental status #Cardiovascular -Hypovolemic shock likely 2/2 GI bleed -On Vasopressor -Central line placed -Titrate pressors to maintain MAP >65 -Keep CVP at 8-12 -IVF boluses PRN -Elevated Troponins, likely demand, trending down -will hold meds for HTN #Pulmo -Acute hypoxic respiratory failure -intubated and sedated -spontaneous breathing trials as tolerated when mental status improved -ABG and CXR daily #GI -Minimal bleeding noted on the PEG tube site -CTAP: no intraabdominal or retroperitoneal hemorrhage -Will monitor H/H and coags -when H/H remain stable, will decrease IV Protonix to 40mg BID -Will hold tube feeds for now. -Keep NPO. -GI (Dr. Dc) consulted. #Renal -[place] likely 2/2 ATN, hypoperfusion -will continue to monitor -continue IV fluids -Martin cath inserted for accurate I&Os -KUB ultrasound ordered #Heme/Onc -Anemia likely 2/2 acute blood loss -Hgb 9.1 this morning s/p 4units pRBC -Stool occult ordered and sample sent to the lab at 8AM this morning. Called the lab and will run the sample now. -Thrombocytopenia, 2 units of platelets transfused -Will repeat CBC and coags at 4pm today -Vit K 10mg daily x3 doses -Hem/Onc (Dr. Daniels) consulted. #Endo -NIDDM -Insulin sliding scale -BGM q6h #FEN -IV D5/Ns at 150cc/hr -HypoNa, repleted -Routine bmp monitoring -NPo for now #Prophylaxis -DVT: SCDs -GI: Protonix drip #Disposition -full code -ICU monitoring -palliative care on board Visit type - Emergency Visit Emergency Visit: Yes ED Registration Date: 06/09/18 Care time: The patient presented to the Emergency Department on the above date and was hospitalized for further evaluation of their emergent condition. - New Patient This patient is new to me today: Yes Date on this admission: 06/20/18 - Critical Care Critical Care patient: Yes Total Critical Care Time (in minutes): 38 Critical Care Statement: The care of this patient involved high complexity decision making to prevent further life threatening deterioration of the patient 's condition and/or to evaluate & treat vital organ system(s) failure or risk of failure.
[2018-06-20 16:38] LABS: BASO % 0.1 % (0-2.0); EOS % 0.4 % (0-4.5); HEMATOCRIT 24.1 % (35.4-49); HEMOGLOBIN 8.2 GM/dL (11.7-16.9); LYMPH % 1.6 % (8-40); MCH 28.2 pg (25.7-33.7); MCHC 34.1 g/dl (32.0-35.9); MEAN CELL VOLUME 82.6 fl (80-96); MEAN PLT VOLUME 7.4 fl (7.5-11.1); MONO % 5.1 % (3.8-10.2); NEUT % 92.8 % (42.8-82.8); PLATELET COUNT 111 K/MM3 (134-434); RBC 2.92 M/mm3 (4.00-5.60); RDW 17.6 % (11.9-15.9); WHITE BLOOD COUNT 8.6 K/mm3 (4.0-10.0)
[2018-06-20] MEDS: MIDAZOLAM 100 MG in SODIUM CHLORIDE 100 ML IVPB SCH (17:20)
[2018-06-20 18:09] LABS: INR 1.39 (0.83-1.09); PROTHROMBIN TIME (PATIENT) 16.4 SEC (9.7-13.0)
[2018-06-20 18:25] LABS: ACTIVATED PTT 120.5 SECONDS (25.2-36.5)
[2018-06-20 20:11] LABS: PLATELET ESTIMATE DECREASED
--- NOTE | 2018-06-20 23:11 | PN ---
Progress Note (short form) - Note Progress Note: Patient seen and examined Poor performance status, failure to thrive afvss Cor: RSR, No murmurs, No gallops Lungs: Clear to P&A Abd: Soft, Normal bowel sounds, No organomegaly Ext:No significant edema Labs/Meds reviewed A/P 73 y/o patient with metastatic prostate cancer, liver mets extensive, s/p lupron /casodex, abiraterone, enzalutamide. 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 Also with achalasia. s/p peg complicated by bleeding now on pressors ? aspiration/sepsis ongoing discussions regarding palliative care
[2018-06-20 23:52] LABS: BASO % 0.5 % (0-2.0); EOS % 0.3 % (0-4.5); HEMATOCRIT 25.2 % (35.4-49); HEMOGLOBIN 8.6 GM/dL (11.7-16.9); LYMPH % 2.3 % (8-40); MCH 28.3 pg (25.7-33.7); MCHC 34.1 g/dl (32.0-35.9); MEAN PLT VOLUME 7.1 fl (7.5-11.1); MONO % 5.7 % (3.8-10.2); NEUT % 91.2 % (42.8-82.8); PLATELET COUNT 83 K/MM3 (134-434); RBC 3.04 M/mm3 (4.00-5.60); RDW 17.6 % (11.9-15.9); WHITE BLOOD COUNT 9.2 K/mm3 (4.0-10.0)
[2018-06-21] MEDS: PIPERACILLIN/TAZOB 3.375 GM 3.375 GM in DEXTROSE 5%-WATER - 50 ML IVPB SCH ×3 (02:00→18:21)
[2018-06-21] MEDS ORDERED: MIDAZOLAM 100 MG/100 ML MG IVPB ONE (03:45)
[2018-06-21] MEDS: VASOPRESSIN 50 UNITS in SODIUM CHLORIDE 97.5 ML IVPB SCH ×3 (03:47→18:25)
[2018-06-21] MEDS: MIDAZOLAM 100 MG in SODIUM CHLORIDE 100 ML IVPB SCH ×2 (03:59→16:22)
[2018-06-21] MEDS ORDERED: MIDAZOLAM 100 MG/100 ML MG IVPB SCH (04:30)
[2018-06-21] MEDS: METOCLOPRAMIDE HCL INJECTION 10 MG/2 ML VIAL IVPUSH SCH ×2 (06:08→11:24)
[2018-06-21] MEDS: INSULIN SLIDING SCALE (NOVOLOG) 1 VIAL SQ SCH ×4 (06:08→21:31)
[2018-06-21 06:55] LABS: BASO % 0.3 % (0-2.0); EOS % 0.2 % (0-4.5); HEMATOCRIT 24.4 % (35.4-49); HEMOGLOBIN 8.5 GM/dL (11.7-16.9); LYMPH % 2.6 % (8-40); MCH 28.6 pg (25.7-33.7); MCHC 34.7 g/dl (32.0-35.9); MEAN CELL VOLUME 82.3 fl (80-96); MEAN PLT VOLUME 7.4 fl (7.5-11.1); MONO % 6.5 % (3.8-10.2); NEUT % 90.4 % (42.8-82.8); PLATELET COUNT 75 K/MM3 (134-434); RBC 2.96 M/mm3 (4.00-5.60); RDW 17.4 % (11.9-15.9); WHITE BLOOD COUNT 9.3 K/mm3 (4.0-10.0)
[2018-06-21 07:12] LABS: ARTERIAL BLD GAS O2 SATURATION 90.8 % (95-98); ARTERIAL BLOOD GAS BASE EXCESS -9.8 meq/l (-2-2); ARTERIAL BLOOD GAS PO2 68.6 mmHg (80-105); ARTERIAL BLOOD GAS pH 7.35 (7.35-7.45)
[2018-06-21 07:12] LABS: BILIRUBIN,TOTAL 2.4 mg/dL (0.2-1); CALCIUM 7.4 mg/dL (8.5-10.1); CREATININE 2.1 mg/dL (0.55-1.3); MAGNESIUM 1.8 mg/dL (1.8-2.4); PHOSPHOROUS 3.9 mg/dL (2.5-4.9); POTASSIUM 3.2 mmol/L (3.5-5.1); TOT PROT 4.5 g/dl (6.4-8.2)
[2018-06-21 07:16] LABS: ALLENS TEST POSITIVE
[2018-06-21 07:28] LABS: INR 1.49 (0.83-1.09); PROTHROMBIN TIME (PATIENT) 17.7 SEC (9.7-13.0)
[2018-06-21] MEDS: ALBUTEROL SO4 0.083% IH SOL 2.5 MG/3 ML VIAL.NEB. NEB SCH ×4 (07:40→20:40)
[2018-06-21] MEDS: ACETYLCYSTEINE 20% 200MG/ML 4 ML VIAL *FOR ORAL / INH USE ONLY NEB SCH ×2 (07:40→20:40)
[2018-06-21] MEDS ORDERED: PIPERACILLIN/TAZOBACTAM 3.375 GM VIAL IVPB ONE ×2 (08:23→15:52)
[2018-06-21] MEDS ORDERED: DEXTROSE 5%-WATER - 50 ML IVPB ONE ×2 (08:23→15:52)
[2018-06-21] MEDS ORDERED: VASOPRESSIN 20 UNITS/ML VIAL IV ONE (08:24)
--- NOTE | 2018-06-21 08:30 | PN.GI ---
GI Progress Note Subjective: Patient is sedated on mechanical ventilator. Report of small dark stool during night. Most recent labs show uptrend of Hg currently 8.6 and Plt 83. Stool OB positive. G tube gauze shows minimal amount of bleeding from stoma site. - Objective Vital Signs: Vital Signs Temperature 97.6 F 06/21/18 06:00 Pulse Rate 87 06/21/18 06:00 Respiratory Rate 16 06/21/18 07:05 Blood Pressure 96/60 06/21/18 06:00 O2 Sat by Pulse Oximetry (%) 100 06/20/18 21:00 Cardiovascular: Yes: Regular Rate and Rhythm Respiratory: Yes: Other (crackles B/L) Gastrointestinal Inspection: Yes: Distention, Other (G tube). No: WNL, Ascites , Hernia, Scars ...Auscultate: Yes: Hypoactive Bowel Sounds. No: Normoactive Bowel Sounds, Hyperactive Bowel Sounds, No Bowel Sounds, Other ...Palpate: Yes: Soft. No: Firm/Rigid, Guarding, Hepatomegaly, Mass, Pulsatile Mass, Splenomegaly, Tenderness, Tenderness, Epigastium, Tenderness, Rebound, Other ...Percussion: Yes: Dullness. No: Fluid Wave, Tympanitic, Other Labs: CBC, BMP 06/21/18 05:30 06/21/18 05:30 INR, PTT INR 1.49 (0.83-1.09) H 06/21/18 05:30 Fibrinogen 365.0 mg/dL (238-498) 06/20/18 05:30 Active Medications Generic Name Dose Route Start Last Admin Trade Name Freq PRN Reason Stop Dose Admin Acetylcysteine 400 mg 06/18/18 20:00 06/21/18 07:40 Mucomyst 20 Oral / Inh Use Only* NEB 400 mg RBID WILMER Administration Albuterol Sulfate 1 amp 06/18/18 16:00 06/21/18 07:40 Ventolin 0.083% Nebulizer Soln - NEB 1 amp RQID WILMER Administration Bacitracin 1 applic 06/19/18 10:00 06/20/18 09:01 Bacitracin - TP 1 applic DAILY WILMER Administration Dextrose 25 gm 06/18/18 15:37 D50w (Vial) - IVPUSH PRN PRN HYPOGLYCEMIA Pantoprazole Sodium 80 mg/ 100 mls @ 10 mls/hr 06/19/18 08:30 06/21/18 00:00 Sodium Chloride IVPB 10 mls/hr Q10H WILMER Administration 8 MG/HR Dextrose/Sodium Chloride 1,000 mls @ 150 mls/hr 06/19/18 09:15 06/20/18 09:01 D5-Ns - IV 150 mls/hr ASDIR WILMER Administration Piperacillin Sod/Tazobactam 50 mls @ 100 mls/hr 06/19/18 11:30 06/21/18 02:00 Sod 3.375 gm/ Dextrose IVPB 100 mls/hr Q8H-IV WILMER Administration Protocol Midazolam HCl 100 mg/ Sodium 100 mls @ 1 mls/hr 06/19/18 15:45 06/21/18 03:59 Chloride IVPB 1 mg/hr TITR WILMER 1 mls/hr Administration Protocol 1 MG/HR Vasopressin 50 units/ Sodium 100 mls @ 4 mls/hr 06/20/18 03:15 06/21/18 03:47 Chloride IVPB Not Given ASDIR WILMER Protocol 2 UNITS/HR Midazolam HCl 100 mg in 100 mls @ 1 mls/hr 06/21/18 04:30 06/21/18 04:58 Versed - IVPB Not Given TITR WILMER Protocol 1 MG/HR Potassium Chloride 10 meq in 100 mls @ 100 mls/hr 06/21/18 08:30 Potassium Chloride 10 Meq Premix Ivpb - IVPB 06/21/18 11:29 Q60M WILMER Insulin Aspart 1 vial 06/20/18 11:00 06/21/18 06:08 Novolog Vial Sliding Scale - SQ Not Given ACHS WILMER Protocol Metoclopramide HCl 5 mg 06/18/18 16:30 06/21/18 06:08 Reglan Injection - IVPUSH 5 mg ACHS WILMER Administration Non-Formulary Medication 2 each 06/18/18 22:00 06/20/18 22:16 Patient's Own Med PO Not Given BID WILMER Phytonadione 10 mg 06/21/18 10:00 Aqua Mephyton Injection - IVPB 06/23/18 10:01 DAILY [facility] Problem List - Problems (1) Anemia Assessment/Plan: >monitor Hg daily >transfuse for Hg <8.0 >on 06/19/18 8pm Hg 6.1 received total 4U PRBC and 2U FFP >stool OB positive >current Hg 8.6 Bleeding from the incision site of the PEG because of coagulopathy from malnutrition R> observe for further bleeding Code(s): D64.9 - ANEMIA, UNSPECIFIED (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
[2018-06-21 08:37] LABS: ACTIVATED PTT 120.5 SECONDS (25.2-36.5)
[2018-06-21] MEDS: PHYTONADIONE 10 MG/1 ML AMP IVPB SCH (10:16)
[2018-06-21] MEDS: KCL 10 MEQ IVPB 10 MEQ/100 ML INFUS.BAG IVPB SCH ×3 (10:16→11:40)
[2018-06-21] MEDS: BACITRACIN 15 GM TUBE TOPICAL OINTMENT TP SCH (10:29)
[2018-06-21] MEDS: DEXTROSE 5%-NORMAL SALINE 1,000 ML IV SCH (10:30)
--- NOTE | 2018-06-21 10:45 | PN ---
Physical Exam: SUBJECTIVE: Patient seen and examined at bedside this morning. Patient is intubated and sedated. No acute events overnight. On Levophed 6 units, versed discontinued this morning to assess mental status. Black tarry stools noted again today. Minimal bleeding on the PEG tube site. OBJECTIVE: Vital Signs Temperature 97.6 F 06/21/18 06:00 Pulse Rate 84 06/21/18 10:00 Respiratory Rate 16 06/21/18 10:00 Blood Pressure 107/62 06/21/18 10:00 O2 Sat by Pulse Oximetry (%) 98 06/21/18 10:00 GENERAL: The patient is intubated and sedated. HEAD: Normal with no signs of trauma. EYES: PERRLA, EOMI, sclera anicteric, conjunctiva clear. ENT: moist mucous membranes. NECK: Trachea midline, full range of motion, supple. LUNGS: Breath sounds equal, clear to auscultation bilaterally. HEART: Regular rate and rhythm, S1, S2 without murmur, rub or gallop. ABDOMEN: Soft, nontender, nondistended, hypoactive bowel sounds, PEG tube in place, minimal bleeding noted EXTREMITIES: 2+ pulses, warm, well-perfused, +1 bilateral LE pitting edema SKIN: Warm, dry, normal turgor, no rashes or lesions noted Laboratory Results - last 24 hr 06/17/18 06/20/18 06/20/18 09:50 05:30 05:30 WBC RBC Hgb Hct MCV MCH MCHC RDW Plt Count MPV Absolute Neuts (auto) Neutrophils % Neutrophils % (Manual) 94.0 H Band Neutrophils % 1.0 Lymphocytes % Lymphocytes % (Manual) 2.0 L D Monocytes % Monocytes % (Manual) 3 L D Eosinophils % Eosinophils % (Manual) 0.0 Basophils % Basophils % (Manual) 0.0 Myelocytes % (Man) 0 Promyelocytes % (Man) 0 Blast Cells % (Manual) 0 Nucleated RBC % Metamyelocytes 0 D Hypochromia 0 Platelet Estimate Decreased Platelet Comment Polychromasia 0 Poikilocytosis 2+ Anisocytosis 1+ Microcytosis 1+ Macrocytosis 1+ Target Cells 1+ Ovalocytes 1+ PT with INR INR PTT (Actin FS) Fibrinogen Anticoagulation Therapy Puncture Site ABG pH ABG pCO2 at Pt Temp ABG pO2 at Pt Temp ABG HCO3 ABG O2 Sat (Measured) ABG O2 Content ABG Base Excess Jose Test O2 Delivery Device Oxygen Flow Rate Vent Mode Vent Rate Mechanical Rate PEEP Pressure Support Vent Sodium 129 L Potassium 3.5 Chloride 101 Carbon Dioxide 16 L Anion Gap 12 BUN 33 H Creatinine 2.0 H Est GFR (CKD-EPI)AfAm 37.01 Est GFR (CKD-EPI)NonAf 31.93 POC Glucometer Random Glucose 228 H Hemoglobin A1c % Calcium 7.6 L Phosphorus 3.9 Magnesium 2.0 Total Bilirubin 2.3 H Direct Bilirubin 1.8 H AST 875 H ALT 89 H Alkaline Phosphatase 314 H Total Protein 4.6 L Albumin 1.0 L Stool Occult Blood Blood Type O POSITIVE Antibody Screen Negative Crossmatch See Detail 06/20/18 06/20/18 06/20/18 05:30 08:00 08:50 WBC RBC Hgb Hct MCV MCH MCHC RDW Plt Count MPV Absolute Neuts (auto) Neutrophils % Neutrophils % (Manual) Band Neutrophils % Lymphocytes % Lymphocytes % (Manual) Monocytes % Monocytes % (Manual) Eosinophils % Eosinophils % (Manual) Basophils % Basophils % (Manual) Myelocytes % (Man) Promyelocytes % (Man) Blast Cells % (Manual) Nucleated RBC % Metamyelocytes Hypochromia Platelet Estimate Platelet Comment Polychromasia Poikilocytosis Anisocytosis Microcytosis Macrocytosis Target Cells Ovalocytes PT with INR INR PTT (Actin FS) Fibrinogen Anticoagulation Therapy Puncture Site ABG pH ABG pCO2 at Pt Temp ABG pO2 at Pt Temp ABG HCO3 ABG O2 Sat (Measured) ABG O2 Content ABG Base Excess Jose Test O2 Delivery Device Oxygen Flow Rate Vent Mode Vent Rate Mechanical Rate PEEP Pressure Support Vent Sodium Potassium Chloride Carbon Dioxide Anion Gap BUN Creatinine Est GFR (CKD-EPI)AfAm Est GFR (CKD-EPI)NonAf POC Glucometer Random Glucose Hemoglobin A1c % 6.0 Calcium Phosphorus Magnesium Total Bilirubin Direct Bilirubin AST ALT Alkaline Phosphatase Total Protein Albumin Stool Occult Blood Positive Blood Type O POSITIVE Antibody Screen Negative Crossmatch 06/20/18 06/20/18 06/20/18 11:13 16:00 17:22 WBC 8.6 RBC 2.92 L Hgb 8.2 L Hct 24.1 L MCV 82.6 MCH 28.2 MCHC 34.1 RDW 17.6 H Plt Count 111 L D MPV 7.4 L Absolute Neuts (auto) 8.0 Neutrophils % 92.8 H Neutrophils % (Manual) 87.0 H Band Neutrophils % 7.0 Lymphocytes % 1.6 L Lymphocytes % (Manual) 5.0 L D Monocytes % 5.1 Monocytes % (Manual) 0 L D Eosinophils % 0.4 Eosinophils % (Manual) 1.0 D Basophils % 0.1 Basophils % (Manual) 0.0 Myelocytes % (Man) Promyelocytes % (Man) Blast Cells % (Manual) Nucleated RBC % 0 Metamyelocytes Hypochromia Platelet Estimate Decreased Platelet Comment No clumping noted Polychromasia Poikilocytosis Anisocytosis Microcytosis Macrocytosis Target Cells Ovalocytes PT with INR INR PTT (Actin FS) Fibrinogen Anticoagulation Therapy Puncture Site ABG pH ABG pCO2 at Pt Temp ABG pO2 at Pt Temp ABG HCO3 ABG O2 Sat (Measured) ABG O2 Content ABG Base Excess Jose Test O2 Delivery Device Oxygen Flow Rate Vent Mode Vent Rate Mechanical Rate PEEP Pressure Support Vent Sodium Potassium Chloride Carbon Dioxide Anion Gap BUN Creatinine Est GFR (CKD-EPI)AfAm Est GFR (CKD-EPI)NonAf POC Glucometer 220 124 Random Glucose Hemoglobin A1c % Calcium Phosphorus Magnesium Total Bilirubin Direct Bilirubin AST ALT Alkaline Phosphatase Total Protein Albumin Stool Occult Blood Blood Type Antibody Screen Crossmatch 06/20/18 06/20/18 06/20/18 17:30 21:55 23:30 WBC 9.2 RBC 3.04 L Hgb 8.6 L Hct 25.2 L MCV 83.0 MCH 28.3 MCHC 34.1 RDW 17.6 H Plt Count 83 L D MPV 7.1 L Absolute Neuts (auto) 8.4 H Neutrophils % 91.2 H Neutrophils % (Manual) Band Neutrophils % Lymphocytes % 2.3 L D Lymphocytes % (Manual) Monocytes % 5.7 Monocytes % (Manual) Eosinophils % 0.3 Eosinophils % (Manual) Basophils % 0.5 D Basophils % (Manual) Myelocytes % (Man) Promyelocytes % (Man) Blast Cells % (Manual) Nucleated RBC % 0 Metamyelocytes Hypochromia Platelet Estimate Platelet Comment No clumping noted Polychromasia Poikilocytosis Anisocytosis Microcytosis Macrocytosis Target Cells Ovalocytes PT with INR 16.40 H INR 1.39 H PTT (Actin FS) 120.5 H Fibrinogen Anticoagulation Therapy Puncture Site ABG pH ABG pCO2 at Pt Temp ABG pO2 at Pt Temp ABG HCO3 ABG O2 Sat (Measured) ABG O2 Content ABG Base Excess Jose Test O2 Delivery Device Oxygen Flow Rate Vent Mode Vent Rate Mechanical Rate PEEP Pressure Support Vent Sodium Potassium Chloride Carbon Dioxide Anion Gap BUN Creatinine Est GFR (CKD-EPI)AfAm Est GFR (CKD-EPI)NonAf POC Glucometer 138 Random Glucose Hemoglobin A1c % Calcium Phosphorus Magnesium Total Bilirubin Direct Bilirubin AST ALT Alkaline Phosphatase Total Protein Albumin Stool Occult Blood Blood Type Antibody Screen Crossmatch 06/21/18 06/21/18 06/21/18 05:30 05:30 05:30 WBC 9.3 RBC 2.96 L Hgb 8.5 L Hct 24.4 L MCV 82.3 MCH 28.6 MCHC 34.7 RDW 17.4 H Plt Count 75 L MPV 7.4 L Absolute Neuts (auto) 8.4 H Neutrophils % 90.4 H Neutrophils % (Manual) Band Neutrophils % Lymphocytes % 2.6 L Lymphocytes % (Manual) Monocytes % 6.5 Monocytes % (Manual) Eosinophils % 0.2 Eosinophils % (Manual) Basophils % 0.3 Basophils % (Manual) Myelocytes % (Man) Promyelocytes % (Man) Blast Cells % (Manual) Nucleated RBC % 0 Metamyelocytes Hypochromia Platelet Estimate Platelet Comment Polychromasia Poikilocytosis Anisocytosis Microcytosis Macrocytosis Target Cells Ovalocytes PT with INR 17.70 H INR 1.49 H PTT (Actin FS) 120.5 H Fibrinogen Anticoagulation Therapy Puncture Site ABG pH ABG pCO2 at Pt Temp ABG pO2 at Pt Temp ABG HCO3 ABG O2 Sat (Measured) ABG O2 Content ABG Base Excess Jose Test O2 Delivery Device Oxygen Flow Rate Vent Mode Vent Rate Mechanical Rate PEEP Pressure Support Vent Sodium 136 Potassium 3.2 L Chloride 106 Carbon Dioxide 17 L Anion Gap 12 BUN 34 H Creatinine 2.1 H Est GFR (CKD-EPI)AfAm 34.89 Est GFR (CKD-EPI)NonAf 30.10 POC Glucometer Random Glucose 162 H Hemoglobin A1c % Calcium 7.4 L Phosphorus 3.9 Magnesium 1.8 Total Bilirubin 2.4 H Direct Bilirubin AST 617 H ALT 58 Alkaline Phosphatase 290 H Total Protein 4.5 L Albumin 1.0 L Stool Occult Blood Blood Type Antibody Screen Crossmatch 06/21/18 06/21/18 06/21/18 05:55 06:45 08:40 WBC RBC Hgb Hct MCV MCH MCHC RDW Plt Count MPV Absolute Neuts (auto) Neutrophils % Neutrophils % (Manual) Band Neutrophils % Lymphocytes % Lymphocytes % (Manual) Monocytes % Monocytes % (Manual) Eosinophils % Eosinophils % (Manual) Basophils % Basophils % (Manual) Myelocytes % (Man) Promyelocytes % (Man) Blast Cells % (Manual) Nucleated RBC % Metamyelocytes Hypochromia Platelet Estimate Platelet Comment Polychromasia Poikilocytosis Anisocytosis Microcytosis Macrocytosis Target Cells Ovalocytes PT with INR INR PTT (Actin FS) Fibrinogen 384.0 Anticoagulation Therapy No Result Required. Puncture Site Left radial ABG pH 7.35 ABG pCO2 at Pt Temp 27.0 L ABG pO2 at Pt Temp 68.6 L ABG HCO3 14.5 L ABG O2 Sat (Measured) 90.8 L ABG O2 Content 9.3 L* ABG Base Excess -9.8 L Jose Test Positive O2 Delivery Device Vent Oxygen Flow Rate 40% Vent Mode No Result Required. Vent Rate 14 Mechanical Rate No Result Required. PEEP 5.0 Pressure Support Vent No Result Required. Sodium Potassium Chloride Carbon Dioxide Anion Gap BUN Creatinine Est GFR (CKD-EPI)AfAm Est GFR (CKD-EPI)NonAf POC Glucometer 153 Random Glucose Hemoglobin A1c % Calcium Phosphorus Magnesium Total Bilirubin Direct Bilirubin AST ALT Alkaline Phosphatase Total Protein Albumin Stool Occult Blood Blood Type Antibody Screen Crossmatch Active Medications Generic Name Dose Route Start Last Admin Trade Name Freq PRN Reason Stop Dose Admin Acetylcysteine 400 mg 06/18/18 20:00 06/21/18 07:40 Mucomyst 20 Oral / Inh Use Only* NEB 400 mg RBID WILMER Administration Albuterol Sulfate 1 amp 06/18/18 16:00 06/21/18 07:40 Ventolin 0.083% Nebulizer Soln - NEB 1 amp RQID WILMER Administration Bacitracin 1 applic 06/19/18 10:00 06/21/18 10:29 Bacitracin - TP 1 applic DAILY WILMER Administration Dextrose 25 gm 06/18/18 15:37 D50w (Vial) - IVPUSH PRN PRN HYPOGLYCEMIA Pantoprazole Sodium 80 mg/ 100 mls @ 10 mls/hr 06/19/18 08:30 06/21/18 00:00 Sodium Chloride IVPB 10 mls/hr Q10H WILMER Administration 8 MG/HR Dextrose/Sodium Chloride 1,000 mls @ 150 mls/hr 06/19/18 09:15 06/21/18 10:30 D5-Ns - IV 150 mls/hr ASDIR WILMER Administration Piperacillin Sod/Tazobactam 50 mls @ 100 mls/hr 06/19/18 11:30 06/21/18 10:25 Sod 3.375 gm/ Dextrose IVPB 100 mls/hr Q8H-IV WILMER Administration Protocol Midazolam HCl 100 mg/ Sodium 100 mls @ 1 mls/hr 06/19/18 15:45 06/21/18 03:59 Chloride IVPB 1 mg/hr TITR WILMER 1 mls/hr Administration Protocol 1 MG/HR Vasopressin 50 units/ Sodium 100 mls @ 4 mls/hr 06/20/18 03:15 06/21/18 10:27 Chloride IVPB 12 units/hr ASDIR WILMER 24 mls/hr Administration Protocol 2 UNITS/HR Midazolam HCl 100 mg in 100 mls @ 1 mls/hr 06/21/18 04:30 06/21/18 04:58 Versed - IVPB Not Given TITR WILMER Protocol 1 MG/HR Potassium Chloride 10 meq in 100 mls @ 100 mls/hr 06/21/18 08:30 06/21/18 10: 16 Potassium Chloride 10 Meq Premix Ivpb - IVPB 06/21/18 11:29 100 mls/hr Q60M WILMER Administration Insulin Aspart 1 vial 06/20/18 11:00 06/21/18 06:08 Novolog Vial Sliding Scale - SQ Not Given ACHS WILMER Protocol Metoclopramide HCl 5 mg 06/18/18 16:30 06/21/18 06:08 Reglan Injection - IVPUSH 5 mg ACHS WILMER Administration Non-Formulary Medication 2 each 06/18/18 22:00 06/21/18 10:27 Patient's Own Med PO Not Given BID WILMER Phytonadione 10 mg 06/21/18 10:00 06/21/18 10:16 Aqua Mephyton Injection - IVPB 06/23/18 10:01 10 mg DAILY WILMER Administration ASSESSMENT/PLAN: Patient is a 73 yo M h/o NIDDM, HLD, HTN, 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 #Neuro -Intubated and sedated -Will discontinue Versed drip -Propofol IV PRN for sedation -Daily mental status assessment #Cardiovascular -Hypovolemic shock likely 2/2 GI bleed -On Vasopressor -Central line placed -Titrate pressors to maintain MAP >65 -Keep CVP at 8-12 -On IV D5/NS @150cc/hr. IVF boluses PRN -Elevated Troponins, likely demand, trending down -will hold meds for HTN #Pulmo -Acute hypoxic respiratory failure -intubated and sedated -spontaneous breathing trials as tolerated when mental status improved -ABG and CXR daily #GI -Minimal bleeding noted on the PEG tube site -Stool occult positive -Melena noted today -CTAP: no intraabdominal or retroperitoneal hemorrhage -Will monitor H/H and coags -Iv Protonix drip -Will hold tube feeds for now. -Keep NPO. -GI (Dr. Dc) consulted. #Renal -[place] likely 2/2 ATN, hypoperfusion -will continue to monitor -continue IV fluids -Martin cath inserted for accurate I&Os -KUB ultrasound #Heme/Onc -Anemia likely 2/2 acute blood loss -H/H stable today. s/p 4units pRBC. -Thrombocytopenia, 2 units of platelets transfused yesterday -Will monitor CBC and coags -Vit K 10mg daily x3 doses -Hem/Onc (Dr. Daniels) consulted. #ID -r/o aspiration Pneumonia -ID (Dr. Dominguez) consulted. Recommendations appreciated. -Zosyn 3.375 q8h -Blood cultures negative x24 h #Endo -NIDDM -Insulin sliding scale -BGM q6h #FEN -IV D5/Ns at 150cc/hr -HypoK, repleted -Routine bmp monitoring -NPo for now #Prophylaxis -DVT: SCDs -GI: Protonix drip #Disposition -full code -ICU monitoring -palliative care on board Visit type - Emergency Visit Emergency Visit: Yes ED Registration Date: 06/09/18 Care time: The patient presented to the Emergency Department on the above date and was hospitalized for further evaluation of their emergent condition. - New Patient This patient is new to me today: No - Critical Care Critical Care patient: Yes Total Critical Care Time (in minutes): 37 Critical Care Statement: The care of this patient involved high complexity decision making to prevent further life threatening deterioration of the patient 's condition and/or to evaluate & treat vital organ system(s) failure or risk of failure.
--- NOTE | 2018-06-21 10:57 | PN ---
Progress Note (short form) - Note Progress Note: remains intubated, on levophed +melena Vital Signs Period Temp Pulse Resp BP Sys/Bermudez Pulse Ox Last 24 Hr 97.4 F-98 F 76-88 14-24 95-117/59-72 98-100 cor-rrr lungs decreased bs at bases abd firm, +blood on dressing for GT +penile/scrotal edema ext no edema CBC, BMP 06/21/18 05:30 06/21/18 05:30 Microbiology 06/19/18 20:00 Blood - Peripheral Venous Blood Culture - Preliminary NO GROWTH OBTAINED AFTER 24 HOURS, INCUBATION TO CONTINUE FOR 4 DAYS. 06/19/18 11:35 Blood - Peripheral Venous Blood Culture - Preliminary NO GROWTH OBTAINED AFTER 24 HOURS, INCUBATION TO CONTINUE FOR 4 DAYS. 06/10/18 23:10 Blood - Peripheral Venous Blood Culture - Final NO GROWTH AFTER 5 DAYS INCUBATION 06/10/18 23:10 Blood - Peripheral Venous Blood Culture - Final NO GROWTH AFTER 5 DAYS INCUBATION 06/09/18 03:27 Urine - Urine Clean Catch Urine Culture - Final NO GROWTH OBTAINED Current Medications Acetylcysteine (Mucomyst 20 Oral / Inh Use Only*) 400 mg NEB RBID WILMER Last Admin: 06/21/18 07:40 Dose: 400 mg Albuterol Sulfate (Ventolin 0.083% Nebulizer Soln -) 1 amp NEB RQID WILMER Last Admin: 06/21/18 07:40 Dose: 1 amp Bacitracin (Bacitracin -) 1 applic TP DAILY [facility] Last Admin: 06/21/18 10:29 Dose: 1 applic Dextrose (D50w (Vial) -) 25 gm IVPUSH PRN PRN PRN Reason: HYPOGLYCEMIA Pantoprazole Sodium 80 mg/ (Sodium Chloride) 100 mls @ 10 mls/hr IVPB Q10H WILMER Last Admin: 06/21/18 00:00 Dose: 10 mls/hr Dextrose/Sodium Chloride (D5-Ns -) 1,000 mls @ 150 mls/hr IV ASDIR WILMER Last Admin: 06/21/18 10:30 Dose: 150 mls/hr Piperacillin Sod/Tazobactam (Sod 3.375 gm/ Dextrose) 50 mls @ 100 mls/hr IVPB Q8H-IV WILMER; Protocol Last Admin: 06/21/18 10:25 Dose: 100 mls/hr Midazolam HCl 100 mg/ Sodium (Chloride) 100 mls @ 1 mls/hr IVPB TITR [facility]; Protocol Last Admin: 06/21/18 03:59 Dose: 1 mg/hr, 1 mls/hr Vasopressin 50 units/ Sodium (Chloride) 100 mls @ 4 mls/hr IVPB ASDIR [facility]; Protocol Last Admin: 06/21/18 10:27 Dose: 12 units/hr, 24 mls/hr Midazolam HCl (Versed -) 100 mg in 100 mls @ 1 mls/hr IVPB TITR [facility]; Protocol Last Admin: 06/21/18 04:58 Dose: Not Given Potassium Chloride (Potassium Chloride 10 Meq Premix Ivpb -) 10 meq in 100 mls @ 100 mls/hr IVPB Q60M [facility] Stop: 06/21/18 11:29 Last Admin: 06/21/18 10:16 Dose: 100 mls/hr Insulin Aspart (Novolog Vial Sliding Scale -) 1 vial SQ [facility]; Protocol Last Admin: 06/21/18 06:08 Dose: Not Given Metoclopramide HCl (Reglan Injection -) 5 mg IVPUSH ACHS [facility] Last Admin: 06/21/18 06:08 Dose: 5 mg Non-Formulary Medication (Patient's Own Med) 2 each PO BID [facility] Last Admin: 06/21/18 10:27 Dose: Not Given Phytonadione (Aqua Mephyton Injection -) 10 mg IVPB DAILY [facility] Stop: 06/23/18 10:01 Last Admin: 06/21/18 10:16 Dose: 10 mg a/p s/p PEG with bleeding hypotension/thrombocytopenia- ?sepsis ?aspiration pneumonia metastatic cancer continue zosyn sputum culture ordered f/u cultures GI f/u ongoing d/w ICU staff
--- NOTE | 2018-06-21 10:58 | PN ---
Progress Note, Physician Chief Complaint: patient seen and examined intubated sedated on ventilator h/h monitoring - Current Medication List Current Medications: Active Medications Acetylcysteine (Mucomyst 20 Oral / Inh Use Only*) 400 mg NEB RBID [facility] Last Admin: 06/21/18 07:40 Dose: 400 mg Albuterol Sulfate (Ventolin 0.083% Nebulizer Soln -) 1 amp NEB RQID [facility] Last Admin: 06/21/18 07:40 Dose: 1 amp Bacitracin (Bacitracin -) 1 applic TP DAILY [facility] Last Admin: 06/21/18 10:29 Dose: 1 applic Dextrose (D50w (Vial) -) 25 gm IVPUSH PRN PRN PRN Reason: HYPOGLYCEMIA Pantoprazole Sodium 80 mg/ (Sodium Chloride) 100 mls @ 10 mls/hr IVPB Q10H [facility] Last Admin: 06/21/18 00:00 Dose: 10 mls/hr Dextrose/Sodium Chloride (D5-Ns -) 1,000 mls @ 150 mls/hr IV ASDIR [facility] Last Admin: 06/21/18 10:30 Dose: 150 mls/hr Piperacillin Sod/Tazobactam (Sod 3.375 gm/ Dextrose) 50 mls @ 100 mls/hr IVPB Q8H-IV [facility]; Protocol Last Admin: 06/21/18 10:25 Dose: 100 mls/hr Midazolam HCl 100 mg/ Sodium (Chloride) 100 mls @ 1 mls/hr IVPB TITR [facility]; Protocol Last Admin: 06/21/18 03:59 Dose: 1 mg/hr, 1 mls/hr Vasopressin 50 units/ Sodium (Chloride) 100 mls @ 4 mls/hr IVPB ASDIR [facility]; Protocol Last Admin: 06/21/18 10:27 Dose: 12 units/hr, 24 mls/hr Midazolam HCl (Versed -) 100 mg in 100 mls @ 1 mls/hr IVPB TITR [facility]; Protocol Last Admin: 06/21/18 04:58 Dose: Not Given Potassium Chloride (Potassium Chloride 10 Meq Premix Ivpb -) 10 meq in 100 mls @ 100 mls/hr IVPB Q60M [facility] Stop: 06/21/18 11:29 Last Admin: 06/21/18 10:16 Dose: 100 mls/hr Insulin Aspart (Novolog Vial Sliding Scale -) 1 vial SQ ACHS [facility]; Protocol Last Admin: 06/21/18 06:08 Dose: Not Given Metoclopramide HCl (Reglan Injection -) 5 mg IVPUSH ACHS [facility] Last Admin: 06/21/18 06:08 Dose: 5 mg Non-Formulary Medication (Patient's Own Med) 2 each PO BID [facility] Last Admin: 06/21/18 10:27 Dose: Not Given Phytonadione (Aqua Mephyton Injection -) 10 mg IVPB DAILY [facility] Stop: 06/23/18 10:01 Last Admin: 06/21/18 10:16 Dose: 10 mg - Objective Vital Signs: Vital Signs Temperature 97.6 F 06/21/18 06:00 Pulse Rate 84 06/21/18 10:00 Respiratory Rate 16 06/21/18 10:00 Blood Pressure 107/62 06/21/18 10:00 O2 Sat by Pulse Oximetry (%) 98 06/21/18 10:00 Constitutional: Yes: Calm Cardiovascular: Yes: Regular Rate and Rhythm, S1, S2 Respiratory: Yes: Mechanically Ventilated Gastrointestinal: Yes: Soft, Other (g tube gauze slightly blood stained) Genitourinary: Yes: Scrotal Edema (penile edema) Edema: No Labs: CBC, BMP 06/21/18 05:30 06/21/18 05:30 INR, PTT INR 1.49 (0.83-1.09) H 06/21/18 05:30 Fibrinogen 384.0 mg/dL (238-498) 06/21/18 08:40 Problem List - Problems (1) Hypotension Assessment/Plan: on pressor inc the LFT and renal function could be secondary to hypotension maintain MAP > 65 Code(s): I95.9 - HYPOTENSION, UNSPECIFIED (2) Failure to thrive Assessment/Plan: s/p peg tube placement became hypotensive and drop in h/h transferred to unit, s /p bleeding from the peg tube site PRBC ffp vitamin K currently tube feeds on hold Code(s): [id number] - (3) Anemia Assessment/Plan: s/p prbc and FFP got vitamin K heme reconsulted platelet count now is 75 PPI drip Code(s): D64.9 - ANEMIA, UNSPECIFIED (4) Syncope Assessment/Plan: intubated on pressors possible aspiration pna iv abx Code(s): R55 - SYNCOPE AND COLLAPSE (5) Liver mass Assessment/Plan: ct scan abdomen with contrast- multiple nodularites seen in liver- metastatic disease oncology n board to start new chemo medication - currently on hold as not using g tube l Code(s): R16.0 - HEPATOMEGALY, NOT ELSEWHERE CLASSIFIED
[2018-06-21] MEDS: PANTOPRAZOLE SODIUM 80 MG in SODIUM CHLORIDE 100 ML IVPB SCH ×3 (11:22→21:18)
--- NOTE | 2018-06-21 12:21 | PN ---
Teaching Attending Note Name of Resident: Vickie Purcell ATTENDING PHYSICIAN STATEMENT I saw and evaluated the patient. I reviewed the resident's note and discussed the case with the resident. I agree with the resident's findings and plan as documented. SUBJECTIVE: Patient seen and examined in the ICU. Remains intubated, sedated. Low dose pressors for hemodynamic support. OBJECTIVE: Intake & Output 06/18/18 06/19/18 06/20/18 06/21/18 23:59 23:59 23:59 23:59 Intake Total 1204 4184 5801 1141 Output Total 300 250 Balance 1204 4184 5501 891 Weight 137 lb 1 oz 143 lb 9 oz Last Vital Signs Temp Pulse Resp BP Pulse Ox 97.6 F 84 17 107/62 98 06/21/18 06:00 06/21/18 10:00 06/21/18 11:50 06/21/18 10:00 06/21/18 10:00 Active Medications Acetylcysteine (Mucomyst 20 Oral / Inh Use Only*) 400 mg NEB RBID [facility] Last Admin: 06/21/18 07:40 Dose: 400 mg Albuterol Sulfate (Ventolin 0.083% Nebulizer Soln -) 1 amp NEB RQID [facility] Last Admin: 06/21/18 11:20 Dose: 1 amp Bacitracin (Bacitracin -) 1 applic TP DAILY [facility] Last Admin: 06/21/18 10:29 Dose: 1 applic Pantoprazole Sodium 80 mg/ (Sodium Chloride) 100 mls @ 10 mls/hr IVPB Q10H [facility] Last Admin: 06/21/18 11:22 Dose: 10 mls/hr Dextrose/Sodium Chloride (D5-Ns -) 1,000 mls @ 150 mls/hr IV ASDIR [facility] Last Admin: 06/21/18 10:30 Dose: 150 mls/hr Piperacillin Sod/Tazobactam (Sod 3.375 gm/ Dextrose) 50 mls @ 100 mls/hr IVPB Q8H-IV [facility]; Protocol Last Admin: 06/21/18 10:25 Dose: 100 mls/hr Vasopressin 50 units/ Sodium (Chloride) 100 mls @ 4 mls/hr IVPB ASDIR [facility]; Protocol Last Admin: 06/21/18 10:27 Dose: 12 units/hr, 24 mls/hr Insulin Aspart (Novolog Vial Sliding Scale -) 1 vial SQ ACHS [facility]; Protocol Last Admin: 06/21/18 11:22 Dose: 2 units Non-Formulary Medication (Patient's Own Med) 2 each PO BID [facility] Last Admin: 06/21/18 10:27 Dose: Not Given Phytonadione (Aqua Mephyton Injection -) 10 mg IVPB DAILY [facility] Stop: 06/23/18 10:01 Last Admin: 06/21/18 10:16 Dose: 10 mg Gen: intubated, sedated Heart: RRR Lung: decreased breath sounds at the bases Abd: soft, nontender Ext: no edema Laboratory Results - last 24 hr 06/17/18 06/20/18 06/20/18 09:50 05:30 05:30 WBC RBC Hgb Hct MCV MCH MCHC RDW Plt Count MPV Absolute Neuts (auto) Neutrophils % Neutrophils % (Manual) Band Neutrophils % Lymphocytes % Lymphocytes % (Manual) Monocytes % Monocytes % (Manual) Eosinophils % Eosinophils % (Manual) Basophils % Basophils % (Manual) Nucleated RBC % Platelet Estimate Platelet Comment PT with INR INR PTT (Actin FS) Fibrinogen Anticoagulation Therapy Puncture Site ABG pH ABG pCO2 at Pt Temp ABG pO2 at Pt Temp ABG HCO3 ABG O2 Sat (Measured) ABG O2 Content ABG Base Excess Jose Test O2 Delivery Device Oxygen Flow Rate Vent Mode Vent Rate Mechanical Rate PEEP Pressure Support Vent Sodium 129 L Potassium 3.5 Chloride 101 Carbon Dioxide 16 L Anion Gap 12 BUN 33 H Creatinine 2.0 H Est GFR (CKD-EPI)AfAm 37.01 Est GFR (CKD-EPI)NonAf 31.93 POC Glucometer Random Glucose 228 H Hemoglobin A1c % 6.0 Calcium 7.6 L Phosphorus 3.9 Magnesium 2.0 Total Bilirubin 2.3 H Direct Bilirubin 1.8 H AST 875 H ALT 89 H Alkaline Phosphatase 314 H Total Protein 4.6 L Albumin 1.0 L Stool Occult Blood Blood Type O POSITIVE Antibody Screen Negative Crossmatch See Detail 06/20/18 06/20/18 06/20/18 08:00 08:50 16:00 WBC 8.6 RBC 2.92 L Hgb 8.2 L Hct 24.1 L MCV 82.6 MCH 28.2 MCHC 34.1 RDW 17.6 H Plt Count 111 L D MPV 7.4 L Absolute Neuts (auto) 8.0 Neutrophils % 92.8 H Neutrophils % (Manual) 87.0 H Band Neutrophils % 7.0 Lymphocytes % 1.6 L Lymphocytes % (Manual) 5.0 L D Monocytes % 5.1 Monocytes % (Manual) 0 L D Eosinophils % 0.4 Eosinophils % (Manual) 1.0 D Basophils % 0.1 Basophils % (Manual) 0.0 Nucleated RBC % 0 Platelet Estimate Decreased Platelet Comment No clumping noted PT with INR INR PTT (Actin FS) Fibrinogen Anticoagulation Therapy Puncture Site ABG pH ABG pCO2 at Pt Temp ABG pO2 at Pt Temp ABG HCO3 ABG O2 Sat (Measured) ABG O2 Content ABG Base Excess Jose Test O2 Delivery Device Oxygen Flow Rate Vent Mode Vent Rate Mechanical Rate PEEP Pressure Support Vent Sodium Potassium Chloride Carbon Dioxide Anion Gap BUN Creatinine Est GFR (CKD-EPI)AfAm Est GFR (CKD-EPI)NonAf POC Glucometer Random Glucose Hemoglobin A1c % Calcium Phosphorus Magnesium Total Bilirubin Direct Bilirubin AST ALT Alkaline Phosphatase Total Protein Albumin Stool Occult Blood Positive Blood Type O POSITIVE Antibody Screen Negative Crossmatch 06/20/18 06/20/18 06/20/18 17:22 17:30 21:55 WBC RBC Hgb Hct MCV MCH MCHC RDW Plt Count MPV Absolute Neuts (auto) Neutrophils % Neutrophils % (Manual) Band Neutrophils % Lymphocytes % Lymphocytes % (Manual) Monocytes % Monocytes % (Manual) Eosinophils % Eosinophils % (Manual) Basophils % Basophils % (Manual) Nucleated RBC % Platelet Estimate Platelet Comment PT with INR 16.40 H INR 1.39 H PTT (Actin FS) 120.5 H Fibrinogen Anticoagulation Therapy Puncture Site ABG pH ABG pCO2 at Pt Temp ABG pO2 at Pt Temp ABG HCO3 ABG O2 Sat (Measured) ABG O2 Content ABG Base Excess Jose Test O2 Delivery Device Oxygen Flow Rate Vent Mode Vent Rate Mechanical Rate PEEP Pressure Support Vent Sodium Potassium Chloride Carbon Dioxide Anion Gap BUN Creatinine Est GFR (CKD-EPI)AfAm Est GFR (CKD-EPI)NonAf POC Glucometer 124 138 Random Glucose Hemoglobin A1c % Calcium Phosphorus Magnesium Total Bilirubin Direct Bilirubin AST ALT Alkaline Phosphatase Total Protein Albumin Stool Occult Blood Blood Type Antibody Screen Crossmatch 06/20/18 06/21/18 06/21/18 23:30 05:30 05:30 WBC 9.2 9.3 RBC 3.04 L 2.96 L Hgb 8.6 L 8.5 L Hct 25.2 L 24.4 L MCV 83.0 82.3 MCH 28.3 28.6 MCHC 34.1 34.7 RDW 17.6 H 17.4 H Plt Count 83 L D 75 L MPV 7.1 L 7.4 L Absolute Neuts (auto) 8.4 H 8.4 H Neutrophils % 91.2 H 90.4 H Neutrophils % (Manual) Band Neutrophils % Lymphocytes % 2.3 L D 2.6 L Lymphocytes % (Manual) Monocytes % 5.7 6.5 Monocytes % (Manual) Eosinophils % 0.3 0.2 Eosinophils % (Manual) Basophils % 0.5 D 0.3 Basophils % (Manual) Nucleated RBC % 0 0 Platelet Estimate Platelet Comment No clumping noted PT with INR 17.70 H INR 1.49 H PTT (Actin FS) 120.5 H Fibrinogen Anticoagulation Therapy Puncture Site ABG pH ABG pCO2 at Pt Temp ABG pO2 at Pt Temp ABG HCO3 ABG O2 Sat (Measured) ABG O2 Content ABG Base Excess Jose Test O2 Delivery Device Oxygen Flow Rate Vent Mode Vent Rate Mechanical Rate PEEP Pressure Support Vent Sodium Potassium Chloride Carbon Dioxide Anion Gap BUN Creatinine Est GFR (CKD-EPI)AfAm Est GFR (CKD-EPI)NonAf POC Glucometer Random Glucose Hemoglobin A1c % Calcium Phosphorus Magnesium Total Bilirubin Direct Bilirubin AST ALT Alkaline Phosphatase Total Protein Albumin Stool Occult Blood Blood Type Antibody Screen Crossmatch 06/21/18 06/21/18 06/21/18 05:30 05:55 06:45 WBC RBC Hgb Hct MCV MCH MCHC RDW Plt Count MPV Absolute Neuts (auto) Neutrophils % Neutrophils % (Manual) Band Neutrophils % Lymphocytes % Lymphocytes % (Manual) Monocytes % Monocytes % (Manual) Eosinophils % Eosinophils % (Manual) Basophils % Basophils % (Manual) Nucleated RBC % Platelet Estimate Platelet Comment PT with INR INR PTT (Actin FS) Fibrinogen Anticoagulation Therapy No Result Required. Puncture Site Left radial ABG pH 7.35 ABG pCO2 at Pt Temp 27.0 L ABG pO2 at Pt Temp 68.6 L ABG HCO3 14.5 L ABG O2 Sat (Measured) 90.8 L ABG O2 Content 9.3 L* ABG Base Excess -9.8 L Jose Test Positive O2 Delivery Device Vent Oxygen Flow Rate 40% Vent Mode No Result Required. Vent Rate 14 Mechanical Rate No Result Required. PEEP 5.0 Pressure Support Vent No Result Required. Sodium 136 Potassium 3.2 L Chloride 106 Carbon Dioxide 17 L Anion Gap 12 BUN 34 H Creatinine 2.1 H Est GFR (CKD-EPI)AfAm 34.89 Est GFR (CKD-EPI)NonAf 30.10 POC Glucometer 153 Random Glucose 162 H Hemoglobin A1c % Calcium 7.4 L Phosphorus 3.9 Magnesium 1.8 Total Bilirubin 2.4 H Direct Bilirubin AST 617 H ALT 58 Alkaline Phosphatase 290 H Total Protein 4.5 L Albumin 1.0 L Stool Occult Blood Blood Type Antibody Screen Crossmatch 06/21/18 06/21/18 08:40 11:16 WBC RBC Hgb Hct MCV MCH MCHC RDW Plt Count MPV Absolute Neuts (auto) Neutrophils % Neutrophils % (Manual) Band Neutrophils % Lymphocytes % Lymphocytes % (Manual) Monocytes % Monocytes % (Manual) Eosinophils % Eosinophils % (Manual) Basophils % Basophils % (Manual) Nucleated RBC % Platelet Estimate Platelet Comment PT with INR INR PTT (Actin FS) Fibrinogen 384.0 Anticoagulation Therapy Puncture Site ABG pH ABG pCO2 at Pt Temp ABG pO2 at Pt Temp ABG HCO3 ABG O2 Sat (Measured) ABG O2 Content ABG Base Excess Jose Test O2 Delivery Device Oxygen Flow Rate Vent Mode Vent Rate Mechanical Rate PEEP Pressure Support Vent Sodium Potassium Chloride Carbon Dioxide Anion Gap BUN Creatinine Est GFR (CKD-EPI)AfAm Est GFR (CKD-EPI)NonAf POC Glucometer 165 Random Glucose Hemoglobin A1c % Calcium Phosphorus Magnesium Total Bilirubin Direct Bilirubin AST ALT Alkaline Phosphatase Total Protein Albumin Stool Occult Blood Blood Type Antibody Screen Crossmatch ASSESSMENT AND PLAN: Acute Blood Loss Anemia Thrombocytopenia s/p Recent PEG Hypovolemic Shock +Troponins likely Demand Ischemia Acute on Chronic Diastolic Heart Failure Acute Kidney Injury Hyponatremia HTN DM Hyperlipidemia h/o CVA Metastatic Prostate Ca - monitor H/H, coags - transfuse as needed - IVF boluses to keep CVP 8-12 - titrate pressors to maintain MAP >65 - continue protonix - NPO - spontaneous breathing trials as tolerated when clinical condition / mental status improved - Will need to arrange a family meeting to further discuss GOC due to overall poor prognosis. Would recommend compassionate extubation - continue ICU monitoring critical care time spent in revieiwng chart, evaluating patient and formulating plan 35 min
[2018-06-21 14:20] LABS: BASO % 0.4 % (0-2.0); EOS % 0.5 % (0-4.5); HEMATOCRIT 27.4 % (35.4-49); HEMOGLOBIN 9.1 GM/dL (11.7-16.9); MCH 28.4 pg (25.7-33.7); MCHC 33.3 g/dl (32.0-35.9); MEAN CELL VOLUME 85.3 fl (80-96); MONO % 6.3 % (3.8-10.2); NEUT % 89.8 % (42.8-82.8); RBC 3.21 M/mm3 (4.00-5.60); RDW 17.9 % (11.9-15.9); WHITE BLOOD COUNT 9.9 K/mm3 (4.0-10.0)
[2018-06-21 15:20] LABS: ANISOCYTOSIS 1+; MACROCYTOSIS 1+; OVALOCYTE 1+; PLATELET ESTIMATE DECREASED; TARGET CELLS 1+
[2018-06-21 15:49] LABS: PLATELET COUNT 61 K/MM3 (134-434)
[2018-06-21] MEDS ORDERED: MIDAZOLAM HCL 5 MG/1 ML Single Dose Vial IVPUSH ONE (15:49)
[2018-06-21 15:50] LABS: PLATELET ESTIMATE MOD DECREASED
[2018-06-21 17:30] LABS: INR 1.55 (0.83-1.09); PROTHROMBIN TIME (PATIENT) 18.4 SEC (9.7-13.0)
[2018-06-21 18:19] LABS: ACTIVATED PTT 136.4 SECONDS (25.2-36.5)
[2018-06-21] MEDS: PROPOFOL 1,000,000 MCG/100 ML VIAL IVPB SCH (18:21)
[2018-06-21] MEDS ORDERED: SODIUM CHLORIDE 500 ML IV STA ×2 (18:39→23:31)
--- NOTE | 2018-06-21 20:54 | PN ---
Progress Note (short form) - Note Progress Note: Patient seen and examined Intubated/sedated With melena On pressors Cor: RSR, No murmurs, No gallops Lungs: CTA anteriorly Abd: Soft, Normal bowel sounds, Ext:No significant edema Labs/Meds reviewed A/P 73 y/o patient with metastatic prostate cancer, liver mets extensive, s/p lupron /casodex, abiraterone, enzalutamide. 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 Also with achalasia. s/p peg complicated by bleeding now on pressors ? aspiration/sepsis --GNR in sputum--on zosyn Discussed with patient sister Ms. Whiting and recommended compassionate extubation and hospice.She wants to discuss it with his son and then decide. will continue palliative care discussions
[2018-06-22] MEDS ORDERED: NOREPINEPHRINE BITARTRATE 4 MG/4 ML ML IV ONE ×3 (00:01→23:03)
[2018-06-22] MEDS ORDERED: NOREPINEPHRINE BITARTRATE 4,000 MCG in DEXTROSE 5%-WATER - 496 ML IV SCH (00:15)
[2018-06-22] MEDS ORDERED: DEXTROSE 5%-WATER - 50 ML IVPB ONE ×4 (01:08→21:07)
[2018-06-22] MEDS ORDERED: PIPERACILLIN/TAZOBACTAM 3.375 GM VIAL IVPB ONE ×4 (01:08→21:07)
[2018-06-22] MEDS: PIPERACILLIN/TAZOB 3.375 GM 3.375 GM in DEXTROSE 5%-WATER - 50 ML IVPB SCH ×3 (01:09→17:22)
[2018-06-22 06:14] LABS: BASO % 0.4 % (0-2.0); EOS % 0.3 % (0-4.5); HEMATOCRIT 20.1 % (35.4-49); HEMOGLOBIN 7.1 GM/dL (11.7-16.9); MCHC 35.4 g/dl (32.0-35.9); MEAN CELL VOLUME 81.9 fl (80-96); MONO % 5.1 % (3.8-10.2); NEUT % 91.2 % (42.8-82.8); PLATELET COUNT 87 K/MM3 (134-434); RBC 2.46 M/mm3 (4.00-5.60); RDW 17.6 % (11.9-15.9); WHITE BLOOD COUNT 10.9 K/mm3 (4.0-10.0)
[2018-06-22] MEDS: VASOPRESSIN 50 UNITS in SODIUM CHLORIDE 97.5 ML IVPB SCH (06:15)
[2018-06-22] MEDS: INSULIN SLIDING SCALE (NOVOLOG) 1 VIAL SQ SCH ×4 (06:15→21:22)
[2018-06-22] MEDS: PANTOPRAZOLE SODIUM 80 MG in SODIUM CHLORIDE 100 ML IVPB SCH ×3 (06:36→17:22)
[2018-06-22 07:23] LABS: ARTERIAL BLD GAS O2 SATURATION 96.1 % (95-98); ARTERIAL BLOOD GAS BASE EXCESS -10.2 meq/l (-2-2); ARTERIAL BLOOD GAS PCO2 27.8 mmHg (35-45); ARTERIAL BLOOD GAS PO2 91.3 mmHg (80-105); ARTERIAL BLOOD GAS pH 7.34 (7.35-7.45)
[2018-06-22 07:30] LABS: ALLENS TEST POSITIVE
[2018-06-22 07:40] LABS: ALBUMIN 1.3 g/dl (3.4-5.0); BILIRUBIN,TOTAL 2.8 mg/dL (0.2-1); CALCIUM 7.6 mg/dL (8.5-10.1); CREATININE 2.2 mg/dL (0.55-1.3); MAGNESIUM 1.8 mg/dL (1.8-2.4); PHOSPHOROUS 3.9 mg/dL (2.5-4.9); POTASSIUM 3.3 mmol/L (3.5-5.1); TOT PROT 4.3 g/dl (6.4-8.2)
[2018-06-22] MEDS: ACETYLCYSTEINE 20% 200MG/ML 4 ML VIAL *FOR ORAL / INH USE ONLY NEB SCH ×2 (08:29→20:38)
[2018-06-22] MEDS: ALBUTEROL SO4 0.083% IH SOL 2.5 MG/3 ML VIAL.NEB. NEB SCH ×4 (08:29→20:39)
[2018-06-22] MEDS: DEXTROSE 5%-NORMAL SALINE 1,000 ML IV SCH (09:16)
[2018-06-22] MEDS: PHYTONADIONE 10 MG/1 ML AMP IVPB SCH (09:16)
--- NOTE | 2018-06-22 10:14 | PN ---
Progress Note (short form) - Note Progress Note: remains intubated, on levophed +melena this am receivedd ffp and platelets yesterday Vital Signs Period Temp Pulse Resp BP Sys/Bermudez Pulse Ox Last 24 Hr 97.3 F-98.3 F 68-100 12-21 71-111/50-64 97-100 cor-rrr lungs decreased bs at bases abd firm, bleeding at gt site scrotal and penile edema +melena CBC, BMP 06/22/18 05:30 06/22/18 05:30 Microbiology 06/21/18 11:00 Sputum - Endotrachea Suction/Ventilator Sputum Culture - Preliminary Non Lactose Fermenting Gnb 06/19/18 20:00 Blood - Peripheral Venous Blood Culture - Preliminary NO GROWTH OBTAINED AFTER 48 HOURS, INCUBATION TO CONTINUE FOR 3 DAYS. 06/19/18 11:35 Blood - Peripheral Venous Blood Culture - Preliminary NO GROWTH OBTAINED AFTER 48 HOURS, INCUBATION TO CONTINUE FOR 3 DAYS. 06/10/18 23:10 Blood - Peripheral Venous Blood Culture - Final NO GROWTH AFTER 5 DAYS INCUBATION 06/10/18 23:10 Blood - Peripheral Venous Blood Culture - Final NO GROWTH AFTER 5 DAYS INCUBATION 06/09/18 03:27 Urine - Urine Clean Catch Urine Culture - Final NO GROWTH OBTAINED cxray bilateral opacities Current Medications Acetylcysteine (Mucomyst 20 Oral / Inh Use Only*) 400 mg NEB RBID [facility] Last Admin: 06/22/18 08:29 Dose: 400 mg Albuterol Sulfate (Ventolin 0.083% Nebulizer Soln -) 1 amp NEB RQID [facility] Last Admin: 06/22/18 08:29 Dose: 1 amp Bacitracin (Bacitracin -) 1 applic TP DAILY [facility] Last Admin: 06/21/18 10:29 Dose: 1 applic Pantoprazole Sodium 80 mg/ (Sodium Chloride) 100 mls @ 10 mls/hr IVPB Q10H [facility] Last Admin: 06/22/18 06:36 Dose: Not Given Dextrose/Sodium Chloride (D5-Ns -) 1,000 mls @ 150 mls/hr IV ASDIR [facility] Last Admin: 06/22/18 09:16 Dose: 150 mls/hr Piperacillin Sod/Tazobactam (Sod 3.375 gm/ Dextrose) 50 mls @ 100 mls/hr IVPB Q8H-IV [facility]; Protocol Last Admin: 06/22/18 09:11 Dose: 100 mls/hr Vasopressin 50 units/ Sodium (Chloride) 100 mls @ 4 mls/hr IVPB ASDIR [facility]; Protocol Last Admin: 06/22/18 06:15 Dose: 2 units/hr, 4 mls/hr Midazolam HCl 100 mg/ Sodium (Chloride) 100 mls @ 1 mls/hr IVPB TITR [facility]; Protocol Last Admin: 06/21/18 16:22 Dose: 1 mg/hr, 1 mls/hr Propofol (Diprivan -) 1,000,000 mcg in 100 mls @ 1.954 mls/hr IVPB TITR [facility]; Protocol Last Admin: 06/21/18 18:21 Dose: Not Given Norepinephrine Bitartrate 4, (000 mcg/ Dextrose) 500 mls @ 37.5 mls/hr IV TITR [facility]; Protocol Last Titration: 06/22/18 07:00 Dose: 5 mcg/min, 37.5 mls/hr Insulin Aspart (Novolog Vial Sliding Scale -) 1 vial SQ ACHS [facility]; Protocol Last Admin: 06/22/18 06:15 Dose: 2 units Non-Formulary Medication (Patient's Own Med) 2 each PO BID [facility] Last Admin: 06/22/18 09:16 Dose: Not Given Phytonadione (Aqua Mephyton Injection -) 10 mg IVPB DAILY [facility] Stop: 06/23/18 10:01 Last Admin: 06/22/18 09:16 Dose: 10 mg a/p s/p PEG with bleeding hypotension/thrombocytopenia- ?sepsis ?aspiration pneumonia metastatic cancer continue zosyn sputum culture GNR- ID pending f/u cultures GI f/u ongoing doing poorly
[2018-06-22 10:17] LABS: INR 1.34 (0.83-1.09); PROTHROMBIN TIME (PATIENT) 15.9 SEC (9.7-13.0)
[2018-06-22] MEDS: BACITRACIN 15 GM TUBE TOPICAL OINTMENT TP SCH (11:00)
[2018-06-22] MEDS ORDERED: INSULIN (NOVOLOG) ASPART 100 UNITS/ML 10ML VIAL ONE (11:15)
--- NOTE | 2018-06-22 11:24 | PN ---
Progress Note (short form) - Note Progress Note: PULM/CCM SUBJECTIVE: Patient seen and examined in the ICU. -melena this am, counts down trending -coags still elevated -Cr cont to rise -GNR in sputum. -awaiting family OBJECTIVE: Vital Signs Temp 98.3 F 06/22/18 06:00 Pulse 72 06/22/18 10:00 Resp 14 06/22/18 10:00 BP 103/61 06/22/18 10:00 Pulse Ox 98 06/22/18 10:00 Intake & Output 06/21/18 06/21/18 06/22/18 11:59 23:59 11:59 Intake Total 1141 1850 3571.5 Output Total 250 300 100 Balance 891 1550 3471.5 Weight 65.119 kg Intake: IV 1141 1350 2619.5 D5-Ns - 1,000 ml @ 150 1050 1200 1800 mls/hr IV ASDIR WILMER Rx#: [id number] DIPRIVAN - 1,000,000 mcg 0 In 100 ml @ 5 MCG/KG/MIN 1.954 mls/hr IVPB TITR WILMER Rx#:[id number] Levophed - 4,000 Mcg In 187.5 D5w - 496 ml @ 5 MCG/MIN 37.5 mls/hr IV TITR WILMER Rx#:[id number] Normal Saline - 500 ml @ 500 500 mls/hr IV ASDIR STA Rx#:[id number] Pitressin - 50 Units In 84 144 120 Normal Saline - 97.5 ml @ 2 UNITS/HR 4 mls/hr IVPB ASDIR WILMER Rx#: [id number] Versed - 100 mg In Normal 7 Saline - 100 ml @ 1 MG/ HR 1 mls/hr IVPB TITR WILMER Rx#:[id number] Versed - 100 mg In Normal 6 12 Saline - 100 ml @ 1 MG/ HR 1 mls/hr IVPB TITR WILMER Rx#:[id number] IVPB 500 50 Packed Cells 294 Fresh Frozen Plasma 608 Output: Urine 250 300 100 Void 250 300 100 Other: Voiding Method Indwelling Catheter Indwelling Catheter Indwelling Catheter Bowel Movement No Yes # Bowel Movements 1 Weight Measurement Method Built in [facility] Active Medications Acetylcysteine (Mucomyst 20 Oral / Inh Use Only*) 400 mg NEB RBID WILMER Last Admin: 06/22/18 08:29 Dose: 400 mg Albuterol Sulfate (Ventolin 0.083% Nebulizer Soln -) 1 amp NEB RQID [facility] Last Admin: 06/22/18 08:29 Dose: 1 amp Bacitracin (Bacitracin -) 1 applic TP DAILY WILMER Last Admin: 06/21/18 10:29 Dose: 1 applic Pantoprazole Sodium 80 mg/ (Sodium Chloride) 100 mls @ 10 mls/hr IVPB Q10H [facility] Last Admin: 06/22/18 06:36 Dose: Not Given Dextrose/Sodium Chloride (D5-Ns -) 1,000 mls @ 150 mls/hr IV ASDIR WILMER Last Admin: 06/22/18 09:16 Dose: 150 mls/hr Piperacillin Sod/Tazobactam (Sod 3.375 gm/ Dextrose) 50 mls @ 100 mls/hr IVPB Q8H-IV [facility]; Protocol Last Admin: 06/22/18 09:11 Dose: 100 mls/hr Vasopressin 50 units/ Sodium (Chloride) 100 mls @ 4 mls/hr IVPB ASDIR [facility]ILMER; Protocol Last Admin: 06/22/18 06:15 Dose: 2 units/hr, 4 mls/hr Midazolam HCl 100 mg/ Sodium (Chloride) 100 mls @ 1 mls/hr IVPB TITR [facility]IL[facility]; Protocol Last Admin: 06/21/18 16:22 Dose: 1 mg/hr, 1 mls/hr Propofol (Diprivan -) 1,000,000 mcg in 100 mls @ 1.954 mls/hr IVPB TITR [facility]ILMER; Protocol Last Admin: 06/21/18 18:21 Dose: Not Given Norepinephrine Bitartrate 4, (000 mcg/ Dextrose) 500 mls @ 37.5 mls/hr IV TITR WILMER; Protocol Last Titration: 06/22/18 07:00 Dose: 5 mcg/min, 37.5 mls/hr Insulin Aspart (Novolog Vial Sliding Scale -) 1 vial SQ ACHS W[facility]; Protocol Last Admin: 06/22/18 06:15 Dose: 2 units Non-Formulary Medication (Patient's Own Med) 2 each PO BID [facility] Last Admin: 06/22/18 09:16 Dose: Not Given Phytonadione (Aqua Mephyton Injection -) 10 mg IVPB DAILY [facility] Stop: 06/23/18 10:01 Last Admin: 06/22/18 09:16 Dose: 10 mg Gen: intubated, sedated, bitemportal wasting Heart: RRR Lung: diminished bases Abd: soft, nontender Ext: no edema Laboratory Results - last 24 hr 06/20/18 06/21/18 06/21/18 23:30 11:00 13:40 WBC 9.9 RBC 3.21 L Hgb 9.1 L Hct 27.4 L MCV 85.3 MCH 28.4 MCHC 33.3 RDW 17.9 H Plt Count 61 L MPV 8.0 Absolute Neuts (auto) 8.9 H Neutrophils % 89.8 H Neutrophils % (Manual) 89.0 H Band Neutrophils % 1.0 Lymphocytes % 3.0 L Lymphocytes % (Manual) 4.0 L Monocytes % 6.3 Monocytes % (Manual) 6 D Eosinophils % 0.5 D Eosinophils % (Manual) 0.0 D Basophils % 0.4 Basophils % (Manual) 0.0 Myelocytes % (Man) 0 Promyelocytes % (Man) 0 Blast Cells % (Manual) 0 Nucleated RBC % 0 Metamyelocytes 0 Hypochromia 0 Platelet Estimate Decreased Mod decreased Platelet Comment No clumping noted Polychromasia 1+ Poikilocytosis 2+ Anisocytosis 1+ Microcytosis 1+ Macrocytosis 1+ Target Cells 1+ Ovalocytes 1+ PT with INR INR PTT (Actin FS) Puncture Site ABG pH ABG pCO2 at Pt Temp ABG pO2 at Pt Temp ABG HCO3 ABG O2 Sat (Measured) ABG O2 Content ABG Base Excess Jose Test O2 Delivery Device Oxygen Flow Rate Vent Mode Vent Rate Mechanical Rate PEEP Pressure Support Vent Sodium Potassium Chloride Carbon Dioxide Anion Gap BUN Creatinine Est GFR (CKD-EPI)AfAm Est GFR (CKD-EPI)NonAf POC Glucometer Random Glucose Calcium Phosphorus Magnesium Total Bilirubin AST ALT Alkaline Phosphatase Total Protein Albumin Stool Occult Blood Positive 06/21/18 06/21/18 06/21/18 16:00 16:24 21:29 WBC RBC Hgb Hct MCV MCH MCHC RDW Plt Count MPV Absolute Neuts (auto) Neutrophils % Neutrophils % (Manual) Band Neutrophils % Lymphocytes % Lymphocytes % (Manual) Monocytes % Monocytes % (Manual) Eosinophils % Eosinophils % (Manual) Basophils % Basophils % (Manual) Myelocytes % (Man) Promyelocytes % (Man) Blast Cells % (Manual) Nucleated RBC % Metamyelocytes Hypochromia Platelet Estimate Platelet Comment Polychromasia Poikilocytosis Anisocytosis Microcytosis Macrocytosis Target Cells Ovalocytes PT with INR 18.40 H INR 1.55 H PTT (Actin FS) 136.4 H Puncture Site ABG pH ABG pCO2 at Pt Temp ABG pO2 at Pt Temp ABG HCO3 ABG O2 Sat (Measured) ABG O2 Content ABG Base Excess Jose Test O2 Delivery Device Oxygen Flow Rate Vent Mode Vent Rate Mechanical Rate PEEP Pressure Support Vent Sodium Potassium Chloride Carbon Dioxide Anion Gap BUN Creatinine Est GFR (CKD-EPI)AfAm Est GFR (CKD-EPI)NonAf POC Glucometer 117 153 Random Glucose Calcium Phosphorus Magnesium Total Bilirubin AST ALT Alkaline Phosphatase Total Protein Albumin Stool Occult Blood 06/22/18 06/22/18 06/22/18 05:29 05:30 05:30 WBC 10.9 H RBC 2.46 L Hgb 7.1 L Hct 20.1 L D MCV 81.9 MCH 29.0 MCHC 35.4 RDW 17.6 H Plt Count 87 L D MPV 7.0 L D Absolute Neuts (auto) 9.9 H Neutrophils % 91.2 H Neutrophils % (Manual) Band Neutrophils % Lymphocytes % 3.0 L Lymphocytes % (Manual) Monocytes % 5.1 Monocytes % (Manual) Eosinophils % 0.3 Eosinophils % (Manual) Basophils % 0.4 Basophils % (Manual) Myelocytes % (Man) Promyelocytes % (Man) Blast Cells % (Manual) Nucleated RBC % 0 Metamyelocytes Hypochromia Platelet Estimate Platelet Comment Polychromasia Poikilocytosis Anisocytosis Microcytosis Macrocytosis Target Cells Ovalocytes PT with INR INR PTT (Actin FS) Puncture Site ABG pH ABG pCO2 at Pt Temp ABG pO2 at Pt Temp ABG HCO3 ABG O2 Sat (Measured) ABG O2 Content ABG Base Excess Jose Test O2 Delivery Device Oxygen Flow Rate Vent Mode Vent Rate Mechanical Rate PEEP Pressure Support Vent Sodium 137 Potassium 3.3 L Chloride 109 H Carbon Dioxide 15 L Anion Gap 14 BUN 36 H Creatinine 2.2 H Est GFR (CKD-EPI)AfAm 32.98 Est GFR (CKD-EPI)NonAf 28.45 POC Glucometer 151 Random Glucose 192 H Calcium 7.6 L Phosphorus 3.9 Magnesium 1.8 Total Bilirubin 2.8 H AST 364 H ALT 33 Alkaline Phosphatase 244 H Total Protein 4.3 L Albumin 1.3 L Stool Occult Blood 06/22/18 06/22/18 06:55 09:30 WBC RBC Hgb Hct MCV MCH MCHC RDW Plt Count MPV Absolute Neuts (auto) Neutrophils % Neutrophils % (Manual) Band Neutrophils % Lymphocytes % Lymphocytes % (Manual) Monocytes % Monocytes % (Manual) Eosinophils % Eosinophils % (Manual) Basophils % Basophils % (Manual) Myelocytes % (Man) Promyelocytes % (Man) Blast Cells % (Manual) Nucleated RBC % Metamyelocytes Hypochromia Platelet Estimate Platelet Comment Polychromasia Poikilocytosis Anisocytosis Microcytosis Macrocytosis Target Cells Ovalocytes PT with INR 15.90 H INR 1.34 H PTT (Actin FS) Puncture Site Left radial ABG pH 7.34 L ABG pCO2 at Pt Temp 27.8 L ABG pO2 at Pt Temp 91.3 ABG HCO3 14.4 L ABG O2 Sat (Measured) 96.1 ABG O2 Content 8.5 L* ABG Base Excess -10.2 L Jose Test Positive O2 Delivery Device Vent Oxygen Flow Rate 40% Vent Mode A/c prvc Vent Rate 14 Mechanical Rate Yes PEEP 5.0 Pressure Support Vent 500 Sodium Potassium Chloride Carbon Dioxide Anion Gap BUN Creatinine Est GFR (CKD-EPI)AfAm Est GFR (CKD-EPI)NonAf POC Glucometer Random Glucose Calcium Phosphorus Magnesium Total Bilirubin AST ALT Alkaline Phosphatase Total Protein Albumin Stool Occult Blood Microbiology 06/21/18 11:00 Sputum - Endotrachea Suction/Ventilator Sputum Culture - Preliminary Non Lactose Fermenting Gnb 06/19/18 20:00 Blood - Peripheral Venous Blood Culture - Preliminary NO GROWTH OBTAINED AFTER 48 HOURS, INCUBATION TO CONTINUE FOR 3 DAYS. 06/19/18 11:35 Blood - Peripheral Venous Blood Culture - Preliminary NO GROWTH OBTAINED AFTER 48 HOURS, INCUBATION TO CONTINUE FOR 3 DAYS. 06/10/18 23:10 Blood - Peripheral Venous Blood Culture - Final NO GROWTH AFTER 5 DAYS INCUBATION 06/10/18 23:10 Blood - Peripheral Venous Blood Culture - Final NO GROWTH AFTER 5 DAYS INCUBATION 06/09/18 03:27 Urine - Urine Clean Catch Urine Culture - Final NO GROWTH OBTAINED CXR, ETT and TLC in ok position, worsenting effusions. ASSESSMENT AND PLAN: Acute Blood Loss Anemia Thrombocytopenia s/p Recent PEG Hypovolemic Shock +Troponins likely Demand Ischemia Acute on Chronic Diastolic Heart Failure Acute Kidney Injury Hyponatremia HTN DM Hyperlipidemia h/o CVA Metastatic Prostate Ca - Full vent support - monitor H/H, coags - transfuse as needed for Hgb < 7, plt <50, INR > 3, Oncology also following - IVF boluses to keep CVP 8-12 - titrate pressors to maintain MAP >65 - continue protonix - NPO - Will need to arrange a family meeting to further discuss GOC due to overall poor prognosis. Would recommend compassionate extubation - continue ICU monitoring Kiarra GARIBAY [phone] 40min CCT
[2018-06-22 11:32] LABS: ACTIVATED PTT 98.9 SECONDS (25.2-36.5)
[2018-06-22 12:03] LABS: HEMATOCRIT 22.2 % (35.4-49); HEMOGLOBIN 7.7 GM/dL (11.7-16.9); MCH 28.5 pg (25.7-33.7); MCHC 34.4 g/dl (32.0-35.9); MEAN CELL VOLUME 82.7 fl (80-96); MEAN PLT VOLUME 7.5 fl (7.5-11.1); PLATELET COUNT 81 K/MM3 (134-434); RBC 2.69 M/mm3 (4.00-5.60); WHITE BLOOD COUNT 10.7 K/mm3 (4.0-10.0)
--- NOTE | 2018-06-22 12:03 | PN ---
Progress Note, Physician - Current Medication List Current Medications: Active Medications Acetylcysteine (Mucomyst 20 Oral / Inh Use Only*) 400 mg NEB RBID WILMER Last Admin: 06/22/18 08:29 Dose: 400 mg Albuterol Sulfate (Ventolin 0.083% Nebulizer Soln -) 1 amp NEB RQID WILMER Last Admin: 06/22/18 08:29 Dose: 1 amp Bacitracin (Bacitracin -) 1 applic TP DAILY WILMER Last Admin: 06/21/18 10:29 Dose: 1 applic Pantoprazole Sodium 80 mg/ (Sodium Chloride) 100 mls @ 10 mls/hr IVPB Q10H WILMER Last Admin: 06/22/18 06:36 Dose: Not Given Dextrose/Sodium Chloride (D5-Ns -) 1,000 mls @ 150 mls/hr IV ASDIR WILMER Last Admin: 06/22/18 09:16 Dose: 150 mls/hr Piperacillin Sod/Tazobactam (Sod 3.375 gm/ Dextrose) 50 mls @ 100 mls/hr IVPB Q8H-IV WILMER; Protocol Last Admin: 06/22/18 09:11 Dose: 100 mls/hr Vasopressin 50 units/ Sodium (Chloride) 100 mls @ 4 mls/hr IVPB ASDIR WILMER; Protocol Last Admin: 06/22/18 06:15 Dose: 2 units/hr, 4 mls/hr Midazolam HCl 100 mg/ Sodium (Chloride) 100 mls @ 1 mls/hr IVPB TITR WILMER; Protocol Last Admin: 06/21/18 16:22 Dose: 1 mg/hr, 1 mls/hr Propofol (Diprivan -) 1,000,000 mcg in 100 mls @ 1.954 mls/hr IVPB TITR WILMER; Protocol Last Admin: 06/21/18 18:21 Dose: Not Given Norepinephrine Bitartrate 4, (000 mcg/ Dextrose) 500 mls @ 37.5 mls/hr IV TITR WILMER; Protocol Last Titration: 06/22/18 07:00 Dose: 5 mcg/min, 37.5 mls/hr Insulin Aspart (Novolog Vial Sliding Scale -) 1 vial SQ ACHS WILMER; Protocol Last Admin: 06/22/18 06:15 Dose: 2 units Non-Formulary Medication (Patient's Own Med) 2 each PO BID WILMER Last Admin: 06/22/18 09:16 Dose: Not Given Phytonadione (Aqua Mephyton Injection -) 10 mg IVPB DAILY WILMER Stop: 06/23/18 10:01 Last Admin: 06/22/18 09:16 Dose: 10 mg - Objective Vital Signs: Vital Signs Temperature 98.3 F 06/22/18 06:00 Pulse Rate 72 06/22/18 10:00 Respiratory Rate 14 06/22/18 11:24 Blood Pressure 103/61 06/22/18 10:00 O2 Sat by Pulse Oximetry (%) 98 06/22/18 10:00 Cardiovascular: Yes: Tachycardia, S1, S2 Respiratory: Yes: Mechanically Ventilated Gastrointestinal: Yes: Normal Bowel Sounds, Soft Labs: CBC, BMP 06/22/18 05:30 INR, PTT INR 1.34 (0.83-1.09) H 06/22/18 09:30 Fibrinogen 384.0 mg/dL (238-498) 06/22/18 09:30 Problem List - Problems (1) Failure to thrive Code(s): [id number] - (2) Syncope Code(s): R55 - SYNCOPE AND COLLAPSE (3) Prostate cancer Code(s): C61 - MALIGNANT NEOPLASM OF PROSTATE (4) Anemia Code(s): D64.9 - ANEMIA, UNSPECIFIED (5) Diabetes Code(s): E11.9 - TYPE 2 DIABETES MELLITUS WITHOUT COMPLICATIONS (6) HTN (hypertension) Code(s): I10 - ESSENTIAL (PRIMARY) HYPERTENSION Assessment/Plan - Problems (1) Hypotension Assessment/Plan: on pressor inc the LFT and renal function could be secondary to hypotension maintain MAP > 65 Code(s): I95.9 - HYPOTENSION, UNSPECIFIED (2) Failure to thrive Assessment/Plan: s/p peg tube placement became hypotensive and drop in h/h transferred to unit, s /p bleeding from the peg tube site PRBC ffp vitamin K currently tube feeds on hold Code(s): [id number] - (3) Anemia Assessment/Plan: s/p prbc and FFP got vitamin K heme reconsulted platelet count now is 75 PPI drip Code(s): D64.9 - ANEMIA, UNSPECIFIED (4) Syncope Assessment/Plan: intubated on pressors possible aspiration pna iv abx Code(s): R55 - SYNCOPE AND COLLAPSE (5) Liver mass Assessment/Plan: ct scan abdomen with contrast- multiple nodularites seen in liver- metastatic disease oncology n board to start new chemo medication - currently on hold as not using g tube l Code(s): R16.0 - HEPATOMEGALY, NOT ELSEWHERE CLASSIFIED
[2018-06-22 12:35] LABS: ANISOCYTOSIS 1+; MACROCYTOSIS 0; PLATELET ESTIMATE DECREASED
[2018-06-22] MEDS: MIDAZOLAM 100 MG in SODIUM CHLORIDE 100 ML IVPB SCH (17:00)
[2018-06-22] MEDS: PROPOFOL 1,000,000 MCG/100 ML VIAL IVPB SCH (17:23)
[2018-06-22] MEDS ORDERED: VASOPRESSIN 20 UNITS/ML VIAL IV ONE (20:00)
[2018-06-22] MEDS ORDERED: NOREPINEPHRINE BITARTRATE 8,000 MCG in DEXTROSE 5%-WATER - 492 ML IV SCH (23:00)
[2018-06-23] MEDS: PIPERACILLIN/TAZOB 3.375 GM 3.375 GM in DEXTROSE 5%-WATER - 50 ML IVPB SCH ×2 (01:31→09:33)
[2018-06-23] MEDS: VASOPRESSIN 50 UNITS in SODIUM CHLORIDE 97.5 ML IVPB SCH (03:28)
[2018-06-23 05:55] LABS: MCH 28.3 pg (25.7-33.7); MCHC 34.6 g/dl (32.0-35.9); MEAN CELL VOLUME 81.9 fl (80-96); MEAN PLT VOLUME 7.3 fl (7.5-11.1); PLATELET COUNT 69 K/MM3 (134-434); RBC 3.18 M/mm3 (4.00-5.60); RDW 17.9 % (11.9-15.9); WHITE BLOOD COUNT 14.9 K/mm3 (4.0-10.0)
[2018-06-23] MEDS: INSULIN SLIDING SCALE (NOVOLOG) 1 VIAL SQ SCH ×3 (06:27→16:54)
[2018-06-23] MEDS ORDERED: NOREPINEPHRINE BITARTRATE 4 MG/4 ML ML IV ONE ×2 (06:30→19:24)
[2018-06-23 06:57] LABS: ALBUMIN 0.9 g/dl (3.4-5.0); BILIRUBIN,TOTAL 3.2 mg/dL (0.2-1); CALCIUM 7.1 mg/dL (8.5-10.1); CREATININE 2.3 mg/dL (0.55-1.3); POTASSIUM 3.5 mmol/L (3.5-5.1); TOT PROT 4.3 g/dl (6.4-8.2)
[2018-06-23] MEDS: ALBUTEROL SO4 0.083% IH SOL 2.5 MG/3 ML VIAL.NEB. NEB SCH ×2 (08:44→11:32)
[2018-06-23] MEDS: ACETYLCYSTEINE 20% 200MG/ML 4 ML VIAL *FOR ORAL / INH USE ONLY NEB SCH (08:44)
[2018-06-23] MEDS ORDERED: PT OWN MED DRAWER 7, Y5N ONE (09:12)
[2018-06-23] MEDS ORDERED: PIPERACILLIN/TAZOBACTAM 3.375 GM VIAL IVPB ONE (09:12)
[2018-06-23] MEDS ORDERED: DEXTROSE 5%-WATER - 50 ML IVPB ONE (09:12)
[2018-06-23] MEDS ORDERED: INSULIN (NOVOLOG) ASPART 100 UNITS/ML 10ML VIAL ONE (09:12)
[2018-06-23] MEDS: PHYTONADIONE 10 MG/1 ML AMP IVPB SCH (09:31)
[2018-06-23] MEDS: PANTOPRAZOLE SODIUM 80 MG in SODIUM CHLORIDE 100 ML IVPB SCH ×3 (09:34→13:16)
--- NOTE | 2018-06-23 09:38 | PN ---
Progress Note, Physician - Current Medication List Current Medications: Active Medications Acetylcysteine (Mucomyst 20 Oral / Inh Use Only*) 400 mg NEB RBID WILMER Last Admin: 06/23/18 08:44 Dose: 400 mg Albuterol Sulfate (Ventolin 0.083% Nebulizer Soln -) 1 amp NEB RQID [facility] Last Admin: 06/23/18 08:44 Dose: 1 amp Bacitracin (Bacitracin -) 1 applic TP DAILY [facility] Last Admin: 06/22/18 11:00 Dose: 1 applic Pantoprazole Sodium 80 mg/ (Sodium Chloride) 100 mls @ 10 mls/hr IVPB Q10H WILMER Last Admin: 06/23/18 00:00 Dose: 10 mls/hr Piperacillin Sod/Tazobactam (Sod 3.375 gm/ Dextrose) 50 mls @ 100 mls/hr IVPB Q8H-IV WILMER; Protocol Last Admin: 06/23/18 01:31 Dose: 100 mls/hr Vasopressin 50 units/ Sodium (Chloride) 100 mls @ 4 mls/hr IVPB ASDIR WILMER; Protocol Last Admin: 06/23/18 03:28 Dose: 4 units/hr, 8 mls/hr Midazolam HCl 100 mg/ Sodium (Chloride) 100 mls @ 1 mls/hr IVPB TITR WILMER; Protocol Last Admin: 06/22/18 17:00 Dose: 2 mg/hr, 2 mls/hr Propofol (Diprivan -) 1,000,000 mcg in 100 mls @ 1.954 mls/hr IVPB TITR WILMER; Protocol Last Admin: 06/22/18 17:23 Dose: Not Given Norepinephrine Bitartrate 8, (000 mcg/ Dextrose) 500 mls @ 18.75 mls/hr IV TITR WILMER; Protocol Last Titration: 06/23/18 00:00 Dose: 30 mcg/min, 112.5 mls/hr Insulin Aspart (Novolog Vial Sliding Scale -) 1 vial SQ ACHS [facility]; Protocol Last Admin: 06/23/18 06:27 Dose: Not Given Non-Formulary Medication (Patient's Own Med) 2 each PO BID [facility] Last Admin: 06/22/18 21:22 Dose: Not Given Phytonadione (Aqua Mephyton Injection -) 10 mg IVPB DAILY [facility] Stop: 05/19/19 10:01 Last Admin: 06/22/18 09:16 Dose: 10 mg - Objective Vital Signs: Vital Signs Temperature 97 F L 06/23/18 06:00 Pulse Rate 121 H 06/23/18 08:42 Respiratory Rate 14 06/23/18 08:42 Blood Pressure 95/73 06/23/18 08:00 O2 Sat by Pulse Oximetry (%) 100 06/23/18 08:42 Cardiovascular: Yes: Tachycardia, S1, S2 Respiratory: Yes: Mechanically Ventilated Neurological: Yes: Unresponsive Labs: CBC, BMP 06/23/18 05:30 06/23/18 05:30 INR, PTT INR 1.34 (0.83-1.09) H 06/22/18 09:30 Fibrinogen 384.0 mg/dL (238-498) 06/22/18 09:30 Problem List - Problems (1) Failure to thrive Code(s): [id number] - (2) Syncope Code(s): R55 - SYNCOPE AND COLLAPSE (3) Prostate cancer Code(s): C61 - MALIGNANT NEOPLASM OF PROSTATE (4) Anemia Code(s): D64.9 - ANEMIA, UNSPECIFIED (5) Diabetes Code(s): E11.9 - TYPE 2 DIABETES MELLITUS WITHOUT COMPLICATIONS (6) HTN (hypertension) Code(s): I10 - ESSENTIAL (PRIMARY) HYPERTENSION Assessment/Plan - Problems (1) Hypotension Assessment/Plan: on pressor inc the LFT and renal function could be secondary to hypotension maintain MAP > 65 Code(s): I95.9 - HYPOTENSION, UNSPECIFIED (2) Failure to thrive Assessment/Plan: s/p peg tube placement became hypotensive and drop in h/h transferred to unit, s /p bleeding from the peg tube site PRBC ffp vitamin K currently tube feeds on hold Code(s): [id number] - (3) Anemia Assessment/Plan: s/p prbc and FFP got vitamin K heme reconsulted PPI drip Code(s): D64.9 - ANEMIA, UNSPECIFIED (4) respiratory failure Assessment/Plan: intubated on pressors possible aspiration pna iv abx Code(s): R55 - SYNCOPE AND COLLAPSE (5) Liver mass Assessment/Plan: ct scan abdomen with contrast- multiple nodularites seen in liver- metastatic disease oncology n board to start new chemo medication - currently on hold as not using g tube l Code(s): R16.0 - HEPATOMEGALY, NOT ELSEWHERE CLASSIFIED (6) Sepsis Assessment/Plan: abx per id pressers overall prognosis poor --son called no answer left message no answer
[2018-06-23] MEDS: BACITRACIN 15 GM TUBE TOPICAL OINTMENT TP SCH (09:47)
--- NOTE | 2018-06-23 10:06 | PN ---
Progress Note (short form) - Note Progress Note: PULM/CCM SUBJECTIVE: Patient seen and examined in the ICU. -has stopped making urine -bicarb is dropping -MSOF progressing, no family came by yesterday -now growing burkholderia OBJECTIVE: Vital Signs Temp 97 F L 06/23/18 06:00 Pulse 124 H 06/23/18 09:41 Resp 14 06/23/18 08:42 BP 84/62 L 06/23/18 09:41 Pulse Ox 100 06/23/18 08:42 Intake & Output 06/22/18 06/22/18 06/23/18 11:59 23:59 11:59 Intake Total 3571.5 2104 1934 Output Total 100 30 25 Balance 3471.5 4 1909 Weight 75.495 kg Intake: IV 2619.5 1904 1884 D5-Ns - 1,000 ml @ 150 1800 1300 300 mls/hr IV ASDIR WILMER Rx#: [id number] Levophed - 4,000 Mcg In 187.5 436 D5w - 496 ml @ 5 MCG/MIN 37.5 mls/hr IV TITR WILMER Rx#:[id number] Levophed - 8,000 Mcg In 1356 D5w - 492 ml @ 5 MCG/MIN 18.75 mls/hr IV TITR WILMER Rx#:[id number] Normal Saline - 500 ml @ 500 500 mls/hr IV ASDIR STA Rx#:[id number] Pitressin - 50 Units In 120 43 96 Normal Saline - 97.5 ml @ 2 UNITS/HR 4 mls/hr IVPB ASDIR WILMER Rx#: [id number] Versed - 100 mg In Normal 12 20 12 Saline - 100 ml @ 1 MG/ HR 1 mls/hr IVPB TITR WILMER Rx#:[id number] pantoprazole 105 120 IVPB 50 200 50 Packed Cells 294 Fresh Frozen Plasma 608 Output: Urine 100 30 25 Void 100 30 25 Other: Voiding Method Indwelling Catheter Indwelling Catheter Indwelling Catheter Bowel Movement Yes Yes Weight Measurement Method Built in [facility]scale Gen: intubated, sedated, bitemportal wasting Heart: RRR Lung: diminished bases Abd: soft, nontender Ext: some dependent edema, oozing from peripheral sites Current Medications Acetylcysteine (Mucomyst 20 Oral / Inh Use Only*) 400 mg NEB RBID WILMER Last Admin: 06/23/18 08:44 Dose: 400 mg Albuterol Sulfate (Ventolin 0.083% Nebulizer Soln -) 1 amp NEB RQID WILMER Last Admin: 06/23/18 08:44 Dose: 1 amp Bacitracin (Bacitracin -) 1 applic TP DAILY [facility] Last Admin: 06/23/18 09:47 Dose: 1 applic Pantoprazole Sodium 80 mg/ (Sodium Chloride) 100 mls @ 10 mls/hr IVPB Q10H WILMER Last Admin: 06/23/18 09:34 Dose: 10 mls/hr Piperacillin Sod/Tazobactam (Sod 3.375 gm/ Dextrose) 50 mls @ 100 mls/hr IVPB Q8H-IV WILMER; Protocol Last Admin: 06/23/18 09:33 Dose: 100 mls/hr Vasopressin 50 units/ Sodium (Chloride) 100 mls @ 4 mls/hr IVPB ASDIR WILMER; Protocol Last Titration: 06/23/18 09:34 Dose: 6 units/hr, 12 mls/hr Midazolam HCl 100 mg/ Sodium (Chloride) 100 mls @ 1 mls/hr IVPB TITR WILMER; Protocol Last Titration: 06/23/18 07:00 Dose: 1 mg/hr, 1 mls/hr Propofol (Diprivan -) 1,000,000 mcg in 100 mls @ 1.954 mls/hr IVPB TITR WILMER; Protocol Last Admin: 06/22/18 17:23 Dose: Not Given Norepinephrine Bitartrate 8, (000 mcg/ Dextrose) 500 mls @ 18.75 mls/hr IV TITR WILMER; Protocol Last Titration: 06/23/18 09:41 Dose: 30 mcg/min, 112.5 mls/hr Insulin Aspart (Novolog Vial Sliding Scale -) 1 vial SQ ACHS WILMER; Protocol Last Admin: 06/23/18 06:27 Dose: Not Given Non-Formulary Medication (Patient's Own Med) 2 each PO BID [facility] Last Admin: 06/23/18 09:34 Dose: Not Given CBC, BMP 06/23/18 05:30 06/23/18 05:30 Microbiology 06/21/18 11:00 Sputum - Endotrachea Suction/Ventilator Sputum Culture - Preliminary Non Lactose Fermenting Gnb 06/19/18 20:00 Blood - Peripheral Venous Blood Culture - Preliminary NO GROWTH OBTAINED AFTER 48 HOURS, INCUBATION TO CONTINUE FOR 3 DAYS. 06/19/18 11:35 Blood - Peripheral Venous Blood Culture - Preliminary NO GROWTH OBTAINED AFTER 48 HOURS, INCUBATION TO CONTINUE FOR 3 DAYS. 06/10/18 23:10 Blood - Peripheral Venous Blood Culture - Final NO GROWTH AFTER 5 DAYS INCUBATION 06/10/18 23:10 Blood - Peripheral Venous Blood Culture - Final NO GROWTH AFTER 5 DAYS INCUBATION 06/09/18 03:27 Urine - Urine Clean Catch Urine Culture - Final NO GROWTH OBTAINED CXR, ETT and TLC in ok position, worsenting effusions. ASSESSMENT AND PLAN: Acute Blood Loss Anemia Thrombocytopenia s/p Recent PEG Hypovolemic Shock +Troponins likely Demand Ischemia Acute on Chronic Diastolic Heart Failure Acute Kidney Injury Hyponatremia HTN DM Hyperlipidemia h/o CVA Metastatic Prostate Ca - Full vent support - monitor H/H, coags - broad spectrum abx, now growing burkholderia, likely need carbapenem - transfuse as needed for Hgb < 7, plt <50, INR > 3, Oncology also following - IVF boluses to keep CVP 8-12 - titrate pressors to maintain MAP >65, near max - continue protonix - NPO - Will need to arrange a family meeting to further discuss GOC due to overall poor prognosis. Would recommend compassionate extubation - continue ICU monitoring Kiarra GARIBAY [id number] 40min CCT
[2018-06-23] MEDS ORDERED: MIDAZOLAM 100 MG/100 ML MG IVPB ONE (13:04)
[2018-06-23] MEDS: MIDAZOLAM 100 MG in SODIUM CHLORIDE 100 ML IVPB SCH ×2 (13:17→18:50)
[2018-06-23] MEDS ORDERED: VANCOMYCIN 1 GRAM (PRE-DOCKED) 1,000 MG/250 ML BAG IVPB ONE (13:28)
[2018-06-23] MEDS ORDERED: MEROPENEM 1 GM in DEXTROSE 5%-WATER 100 ML IVPB SCH (13:30)
--- NOTE | 2018-06-23 13:31 | PN ---
Progress Note (short form) - Note Progress Note: doing poorly worsening pressor requirements levophed, vaospressin Vital Signs Period Temp Pulse Resp BP Sys/Bermudez Pulse Ox Last 24 Hr 95.4 F-97.9 F 80-124 14-22 64-102/48-73 98-100 cor-rrr lungs decreased bs at bases abd firm, bleeding at gt site scrotal and penile edema CBC, BMP 06/23/18 05:30 06/23/18 05:30 Microbiology 06/19/18 11:35 Blood - Peripheral Venous Blood Culture - Preliminary NO GROWTH OBTAINED AFTER 96 HOURS, INCUBATION TO CONTINUE FOR 1 DAYS. 06/21/18 11:00 Sputum - Endotrachea Suction/Ventilator Gram Stain - Final 06/21/18 11:00 Sputum - Endotrachea Suction/Ventilator Sputum Culture - Final Burkholderia Cepacia 06/19/18 20:00 Blood - Peripheral Venous Blood Culture - Preliminary NO GROWTH OBTAINED AFTER 72 HOURS, INCUBATION TO CONTINUE FOR 2 DAYS. 06/10/18 23:10 Blood - Peripheral Venous Blood Culture - Final NO GROWTH AFTER 5 DAYS INCUBATION 06/10/18 23:10 Blood - Peripheral Venous Blood Culture - Final NO GROWTH AFTER 5 DAYS INCUBATION 06/09/18 03:27 Urine - Urine Clean Catch Urine Culture - Final NO GROWTH OBTAINED cxray bilateral opacities Current Medications Acetylcysteine (Mucomyst 20 Oral / Inh Use Only*) 400 mg NEB RBID [facility] Last Admin: 06/23/18 08:44 Dose: 400 mg Albuterol Sulfate (Ventolin 0.083% Nebulizer Soln -) 1 amp NEB RQID [facility] Last Admin: 06/23/18 11:32 Dose: 1 amp Bacitracin (Bacitracin -) 1 applic TP DAILY [facility] Last Admin: 06/23/18 09:47 Dose: 1 applic Pantoprazole Sodium 80 mg/ (Sodium Chloride) 100 mls @ 10 mls/hr IVPB Q10H [facility] Last Admin: 06/23/18 13:16 Dose: 10 mls/hr Vasopressin 50 units/ Sodium (Chloride) 100 mls @ 4 mls/hr IVPB ASDIR [facility]; Protocol Last Titration: 06/23/18 09:34 Dose: 6 units/hr, 12 mls/hr Midazolam HCl 100 mg/ Sodium (Chloride) 100 mls @ 1 mls/hr IVPB TITR [facility]; Protocol Last Admin: 06/23/18 13:17 Dose: 1 mg/hr, 1 mls/hr Propofol (Diprivan -) 1,000,000 mcg in 100 mls @ 1.954 mls/hr IVPB TITR [facility]; Protocol Last Admin: 06/22/18 17:23 Dose: Not Given Norepinephrine Bitartrate 8, (000 mcg/ Dextrose) 500 mls @ 18.75 mls/hr IV TITR [facility]; Protocol Last Titration: 06/23/18 09:41 Dose: 30 mcg/min, 112.5 mls/hr Meropenem 1 gm/ Dextrose 100 mls @ 0 mls/hr IVPB Q12H [facility] Vancomycin HCl 1,000 mg/ (Dextrose) 250 mls @ 166.667 mls/hr IVPB ONCE ONE; Protocol Stop: 06/23/18 14:57 Insulin Aspart (Novolog Vial Sliding Scale -) 1 vial SQ ACHS [facility]; Protocol Last Admin: 06/23/18 12:17 Dose: Not Given Non-Formulary Medication (Patient's Own Med) 2 each PO BID [facility] Last Admin: 06/23/18 09:34 Dose: Not Given a/p s/p PEG with bleeding worsening hypotension/sepsis multiorgan failure ?aspiration pneumonia metastatic cancer switch to meropenem/vanco one dose blood cultures doing poorly hopefully 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
[2018-06-23] MEDS ORDERED: DEXTROSE 5%-WATER 100 ML IVPB ONE (15:18)
[2018-06-23] MEDS ORDERED: MEROPENEM 1 GM VIAL (RESTRICTED TO ID) IVPB ONE (15:18)
[2018-06-23] MEDS: PROPOFOL 1,000,000 MCG/100 ML VIAL IVPB SCH (18:50)
[2018-06-23] MEDS ORDERED: VASOPRESSIN 20 UNITS/ML VIAL IV ONE (19:24)
[2018-06-23] MEDS ORDERED: EPINEPHrine 1:10,000 (P-F SYR) 1 MG/10 ML DISP.SYRIN ONE (20:36)
--- NOTE | 2018-06-23 20:50 | PN ---
Progress Note (short form) - Note Progress Note: Code 99 called overhead. Patient found to be asystolic. Chest compressions began. Please see code sheet for further detail. Called son and he is aware of patients condition. Patient pronounced at 8:44 pm
--- NOTE | 2018-06-23 21:15 | PN ---
Progress Note, Physician - Current Medication List Current Medications: Active Medications Bacitracin (Bacitracin -) 1 applic TP DAILY [facility] Last Admin: 06/23/18 09:47 Dose: 1 applic Pantoprazole Sodium 80 mg/ (Sodium Chloride) 100 mls @ 10 mls/hr IVPB Q10H [facility] Last Admin: 06/23/18 13:16 Dose: 10 mls/hr Vasopressin 50 units/ Sodium (Chloride) 100 mls @ 4 mls/hr IVPB ASDIR [facility]; Protocol Last Titration: 06/23/18 09:34 Dose: 6 units/hr, 12 mls/hr Midazolam HCl 100 mg/ Sodium (Chloride) 100 mls @ 1 mls/hr IVPB TITR [facility]; Protocol Last Admin: 06/23/18 18:50 Dose: Not Given Propofol (Diprivan -) 1,000,000 mcg in 100 mls @ 1.954 mls/hr IVPB TITR [facility]; Protocol Last Admin: 06/23/18 18:50 Dose: Not Given Norepinephrine Bitartrate 8, (000 mcg/ Dextrose) 500 mls @ 18.75 mls/hr IV TITR [facility]; Protocol Last Titration: 06/23/18 09:41 Dose: 30 mcg/min, 112.5 mls/hr Meropenem 1 gm/ Dextrose 100 mls @ 200 mls/hr IVPB Q12H [facility] Last Admin: 06/23/18 15:24 Dose: 200 mls/hr Insulin Aspart (Novolog Vial Sliding Scale -) 1 vial SQ ACHS [facility]; Protocol Last Admin: 06/23/18 16:54 Dose: Not Given Non-Formulary Medication (Patient's Own Med) 2 each PO BID [facility] Last Admin: 06/23/18 09:34 Dose: Not Given - Objective Vital Signs: Vital Signs Temperature 98 F 06/23/18 17:00 Pulse Rate 100 H 06/23/18 18:30 Respiratory Rate 14 06/23/18 19:52 Blood Pressure 70/51 L 06/23/18 18:30 O2 Sat by Pulse Oximetry (%) 95 06/23/18 19:52 Labs: CBC, BMP 06/23/18 05:30 06/23/18 05:30 INR, PTT INR 1.34 (0.83-1.09) H 06/22/18 09:30 Fibrinogen 384.0 mg/dL (238-498) 06/22/18 09:30 Assessment/Plan pt was coded at 8.24 pm was resuscitated for 20 min per ACLS protocol pt was pronounced at 8.44 pm family was informed.
[2018-06-23 21:22] VITALS: BP 60/41; PULSE 84; TEMP 97.7
== END 2018-06-23 20:44 | disposition expired | DRG 435 ==
LOC: JER 00:13 → JERBED 03:07 → OBSVTOIN 03:22 → J4S 06-10 18:46 → JICU 06-19 10:21
PROVIDERS: ADMIT Internal Medicine; ATTEND Family Medicine
PROC: 0DH63UZ Insertion of Feeding Device into Stomach, Percutaneous Approach (ICD-10-PCS; principal; 2018-06-18 14:00)
PROC: 5A1945Z Respiratory Ventilation, 24-96 Consecutive Hours (ICD-10-PCS; 2018-06-19)
PROC: 0BH17EZ Insertion of Endotracheal Airway into Trachea, Via Natural or Artificial Opening (ICD-10-PCS; 2018-06-19)
PROC: 30233N1 Transfusion of Nonautologous Red Blood Cells into Peripheral Vein, Percutaneous Approach (ICD-10-PCS; 2018-06-19)
PROC: 30233L1 Transfusion of Nonautologous Fresh Plasma into Peripheral Vein, Percutaneous Approach (ICD-10-PCS; 2018-06-19)
PROC: 30233K1 Transfusion of Nonautologous Frozen Plasma into Peripheral Vein, Percutaneous Approach (ICD-10-PCS; 2018-06-19)
PROC: 05HN33Z Insertion of Infusion Device into Left Internal Jugular Vein, Percutaneous Approach (ICD-10-PCS; 2018-06-20)
PROC: 30233R1 Transfusion of Nonautologous Platelets into Peripheral Vein, Percutaneous Approach (ICD-10-PCS; 2018-06-20)
DX: C78.7 Secondary malignant neoplasm of liver and intrahepatic bile duct (principal); E43 Unspecified severe protein-calorie malnutrition; J69.0 Pneumonitis due to inhalation of food and vomit; J96.00 Acute respiratory failure, unspecified whether with hypoxia or hypercapnia; A41.9 Sepsis, unspecified organism; I50.33 Acute on chronic diastolic (congestive) heart failure; J96.01 Acute respiratory failure with hypoxia; G92 Toxic encephalopathy; Z68.1 Body mass index [BMI] 19.9 or less, adult; R64 Cachexia; D62 Acute posthemorrhagic anemia; N17.9 Acute kidney failure, unspecified; E87.1 Hypo-osmolality and hyponatremia; I69.351 Hemiplegia and hemiparesis following cerebral infarction affecting right dominant side; K92.2 Gastrointestinal hemorrhage, unspecified; R57.1 Hypovolemic shock; R62.7 Adult failure to thrive; C61 Malignant neoplasm of prostate; R55 Syncope and collapse; I10 Essential (primary) hypertension; K22.0 Achalasia of cardia; R16.0 Hepatomegaly, not elsewhere classified; I95.9 Hypotension, unspecified; D69.6 Thrombocytopenia, unspecified; I11.0 Hypertensive heart disease with heart failure; E78.5 Hyperlipidemia, unspecified; E11.42 Type 2 diabetes mellitus with diabetic polyneuropathy
CPT/HCPCS: 36415; 36430; 36511; 36600; 70450-TC; 70551-TC; 71045-TC-FY; 72158-TC; 74018-TC-FY; 74176-TC; 74177-TC; 74230-TC-FY; 76700-TC; 76705-TC; 76856-TC; 80053; 80061; 81003; 82105; 82248; 82272; 82378; 82550; 82607; 82728; 82746; 82803; 82962; 82977; 83036; 83540; 83550; 83721; 83735; 84100; 84134; 84153; 84443; 84484; 85025; 85027; 85379; 85384; 85610; 85730; 86301; 86593; 86704; 86705; 86706; 86707; 86803; 86850; 86900; 86901; 86922; 87040; 87070; 87086; 87186; 87205; 92611-GN; 93005; 93010; 93306-TC; 93880-TC; 94002; 94640; 97116-GP; 97161-GP; 99285-25; G0378; J7030; P9017; P9034; P9038; P9058